=== PATIENT | female | born 1930 | race Caucasian/White ===

== ENCOUNTER 2018-06-12 10:45 | Emergency (ER) | payer MEDICARE, BC ==
--- OUTSIDE RECORDS SUMMARY | 2018-06-12 11:04 | XMS REPORT | Continuity of Care Document ---
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 Type Date Identification Numbers Payment Provider Subscriber Policy Number: [id number] Medicare Eleanor Flowers PayID: [id number] [address] [place] [address] Policy Number: [id number] [employer] Eleanor Flowers PayID: [id number] [address] [address] [place] [address] Advance Directives Description No Information Available Problems Date Description Provider Status Onset: 04/29/2014 Essential hypertension Go Barrios MD Active Onset: 04/29/2014 Chronic obstructive lung disease Go Barrios MD Active Onset: 07/16/2016 Atrial fibrillation Go Barrios MD Active Family History Date Family Member(s) Problem(s) Comments Father Unknown Mother Hyperlipidemia Mother Hypertension Social History Type Date Description Comments Sex Unknown Marital Status Legal Status: Occupation Retired Tobacco Use Start: Unknown End: Unknown Patient is a former smoker QUIT 2011 Smoking Status Reviewed: 08/01/17 Patient is a former smoker QUIT 2011 Allergies, Adverse Reactions, Alerts Date Description Reaction Status Severity Comments 11/19/2016 Augmentin Active 04/10/2017 Naproxen Active 04/10/2017 Digitek Active 08/05/2017 Amoxicillin Active Medications Medication Date Status Form Strength Qnty SIG Indications Ordering Provider Famciclovir 10/16 Active Tablets 500mg 30tab 1 by mouth s three times a MD Denis day Lactulose 10/16 Active Solution 20GM/30ML 1500m 30 l milliliters MD Denis by mouth three times a day as needed constipation Shingrix 10/09 Active Suspension 50mcg 2dose 1 dose Rec s intramuscular Ring, then repeat in 4 month Spiriva 10/09 Active Aerosol 1.25mcg/A 3mont [address] hs every day Ring, Eliquis 08/01 Active Tablets 5mg 60tab twice a day s Ring, Proair HFA 04/10 Active Aerosol 108(90Bas 8.500 2 puffs 4 x e) gm daily Ring, mcg/Act Furosemide 04/10 Active Tablets 40mg 30tab 1 tablet with El s weight gain Ring, of 2-3 lbs Amlodipine 03/10 Active Tablets 10mg 30tab 1 by mouth Elyn Besylate /2016 s every day Ring, Famotidine 03/10 Active Tablets 20mg 30tab 1 by mouth Elyn s every day Ring, Polyethylene 05/30 Active Packet [id number] 90uni 1 packet Elyn Glycol 3350 /2015 ts every day Ring, Triamcinolone Active Cream 0.1% apply as Elyn Acetonide /0000 needed Ring, Ondansetron 08/26 Hx Tablets 4mg 30tab 1 by mouth yn HCL s every 4 hours Ring, - as needed 10/09 nausea when taking zithromax Prednisone 08/05 Hx Tablets 20mg 8tabs 2 by mouth J44.0 Kameron F. /2017 every day MD Fausto - 08/26 Nystatin 08/01 Hx Suspension 098954Nkg 240ml 1 teaspoon t/ML four times a Ring, - day swish and 01/28 Spit Amoxicillin 08/01 Hx Capsules 500mg 30cap 1 by mouth s three times a Ring, - day x 10 days 08/05 Amoxicillin/Cl 11/14 Hx Tablets 500-125mg 14tab 1 by mouth J01.90 Adore avulanate s twice a day Giancarlo Lambert M.D. 11/19 Carafate 12/18 Hx Tablets 1gm 120ta 1 tab by bs mouth before Ring, - meals and at 05/30 bedtime dissolve in 1 tablespoon water Boniva 03/02 Hx Tablets 150mg 3tabs Tab 1 Q Month Drink Large Ring, - Luis Daniel Of 12/18 Water Med DO Not Lie Down For AT Least 1/2 Hour After Taking Med Magnesium 04/29 Hx Capsules 400mg 90cap 1 by mouth Elyn Oxide /2013 s every day Ring, - 12/18 Vitamin D 04/29 Hx Tablets 1000Unit 90tab 1 by mouth Elyn /2014 s every day Ring, - 12/18 Amlodipine Hx Capsules 10-40mg 90cap 1 by mouth Elyn Besylate/Benaz /0000 s every day Ring, epril HCL - 03/10 Metoprolol Hx Tablets ER 100mg 90tab 1 by mouth Elyn Succinate ER /0000 24HR s every day Ring, - 05/30 Spiriva Hx Capsules 18mcg 14cap one puff Elyn Handihaler /0000 s every day Ring, - 10/09 Symbicort Hx Aerosol 80-4.5mcg 3unit 1 puff twice Elyn /0000 /Act s a day Ring, - 07/16 Proair HFA Hx Aerosol 108(90Bas 8.500 2 puffs 4 x Elyn /0000 e) gm daily Ring, - mcg/Act 11/04 Lasix Hx Tablets 40mg tab 1 by Davidenko /0000 mouth every ,Ulises - day 05/30 Eliquis Hx Tablets 2.5mg 180ta 1 by mouth Elyn /0000 bs twice a day Ring, - 08/01 Klor-Con M20 00 Hx Tablets ER 20Meq 1 every day Davidenko /0000 as needed ,Ulises - when taking 03/10 the Amiodarone HCL Hx Tablets 200mg once daily Unknown / - 07/16 Lasix Hx Tablets 40mg 1 tab po bid Unknown / - 03/10 Digox Hx Tablets 125mcg Unknown / - 08/26 Magnesium 00 Hx Capsules 400mg daily Unknown Oxide -MG /0000 Supplement - 03/10 Potassium 00/00 Hx Tablets ER 10Meq 1 by mouth Unknown Chloride ER /0000 every day - 03/10 Immunizations CPT Code Status Date Vaccine Reaction Lot # [id number] Given 05/20/2018 Influenza Virus (Afluria) [id number] Split Virus 3 Years Of Age And Older 31841 Given 05/20/2018 Influenza Virus Vaccine, Quadrivalent, Split, Preservative Free Q2035 Given 04/10/2017 Influenza Virus (Afluria) [id number] Split Virus 3 Years Of Age And Older 01866 Given 04/10/2017 Pneumovax Polyvalent Inj Im [id number] 99434 Given 04/10/2017 Pneumovax Polyvalent Inj Im Q2035 Given 05/24/2015 Influenza Virus (Afluria) Split Virus 3 Years Of Age And Older 92180 Given 03/02/2015 Pneumococcal Conjugate [id number] Vaccine 13 Valent For Intramuscular Use 24424 Given 12/23/2007 Tetanus,Diphtheria,Adut/Ado DONE THROUGH PREVIOUS l Pertussis PROVIFER 97656 Given 05/15/2007 Influenza Vaccine [id number] Vital Signs Date Vital Result Comment 05/20/2018 3:07pm BP Systolic 138 mmHg BP Diastolic 72 mmHg Height 57.5 inches 4'9.50" Weight 159.00 lb BMI (Body Mass Index) 33.8 kg/m2 05/19/2018 8:19am BP Systolic 130 mmHg BP Diastolic 68 mmHg Heart Rate 72 /min Height 57.50 inches 4'9.50" Weight 159.00 lb BMI (Body Mass Index) 33.8 kg/m2 O2 % BldC Oximetry 92 % 01/28/2018 10:17am BP Systolic 126 mmHg BP Diastolic 64 mmHg Height 57.50 inches 4'9.50" Weight 157.00 lb BMI (Body Mass Index) 33.4 kg/m2 10/09/2017 10:27am BP Systolic 118 mmHg BP Diastolic 60 mmHg Height 57.50 inches 4'9.50" Weight 162.00 lb BMI (Body Mass Index) 34.4 kg/m2 08/26/2017 9:41am BP Systolic 120 mmHg BP Diastolic 64 mmHg Heart Rate 84 /min Respiratory Rate 20 /min Weight 162.00 lb O2 % BldC Oximetry 96 % 08/05/2017 12:20pm BP Systolic 126 mmHg BP Diastolic 70 mmHg 08/01/2017 12:00pm BP Systolic 138 mmHg BP Diastolic 78 mmHg Height 57 inches 4'9" Weight 160.00 lb BMI (Body Mass Index) 34.6 kg/m2 04/10/2017 12:54pm BP Systolic 122 mmHg BP Diastolic 70 mmHg Height 57.25 inches 4'9.25" Weight 166.00 lb BMI (Body Mass Index) 35.6 kg/m2 03/10/2017 12:52pm BP Systolic 120 mmHg BP Diastolic 70 mmHg Height 57 inches 4'9" Weight 169.00 lb BMI (Body Mass Index) 36.6 kg/m2 11/19/2016 2:16pm BP Systolic 106 mmHg BP Diastolic 70 mmHg BP Systolic Recheck 120 mmHg BP Diastolic Recheck 70 mmHg 11/14/2016 1:46pm BP Systolic 138 mmHg BP Diastolic 78 mmHg Body Temperature 98.0 F 11/04/2016 3:24pm BP Systolic 132 mmHg BP Diastolic 70 mmHg Height 58 inches 4'10" Weight 175.00 lb BMI (Body Mass Index) 36.6 kg/m2 08/26/2016 10:47am BP Systolic 130 mmHg BP Diastolic 62 mmHg Heart Rate 68 /min Height 58 inches 4'10" Weight 173.00 lb BMI (Body Mass Index) 36.2 kg/m2 07/16/2016 2:25pm BP Systolic 132 mmHg BP Diastolic 76 mmHg Height 58 inches 4'10" Weight 177.00 lb BMI (Body Mass Index) 37.0 kg/m2 05/30/2016 1:11pm BP Systolic 114 mmHg BP Diastolic 68 mmHg Height 58 inches 4'10" Weight 176.00 lb BMI (Body Mass Index) 36.8 kg/m2 03/28/2016 9:47am BP Systolic 120 mmHg BP Diastolic 80 mmHg Height 58 inches 4'10" Weight 172.00 lb BMI (Body Mass Index) 35.9 kg/m2 O2 % BldC Oximetry 94 % 95% ambulating 12/19/2015 2:29pm BP Systolic 138 mmHg BP Diastolic 80 mmHg Height 58 inches 4'10" Weight 185.00 lb BMI (Body Mass Index) 38.7 kg/m2 09/13/2015 1:11pm BP Systolic 126 mmHg BP Diastolic 74 mmHg Height 58 inches 4'10" Weight 184.00 lb BMI (Body Mass Index) 38.5 kg/m2 06/08/2015 2:33pm BP Systolic 142 mmHg BP Diastolic 84 mmHg Height 58 inches 4'10" Weight 180.00 lb BMI (Body Mass Index) 37.6 kg/m2 02/28/2015 9:39am BP Systolic 138 mmHg BP Diastolic 68 mmHg 12/05/2014 4:04pm BP Systolic 126 mmHg BP Diastolic 80 mmHg 11/22/2014 12:47pm BP Systolic 100 mmHg BP Diastolic 58 mmHg Height 57 inches 4'9" Weight 184.00 lb BMI (Body Mass Index) 39.8 kg/m2 08/03/2014 1:29pm BP Systolic 146 mmHg BP Diastolic 88 mmHg Height 57 inches 4'9" Weight 184.00 lb BMI (Body Mass Index) 39.8 kg/m2 04/29/2014 3:56pm BP Systolic 140 mmHg BP Diastolic 70 mmHg Height 57 inches 4'9" Weight 184.00 lb BMI (Body Mass Index) 39.8 kg/m2 Results Test Date Facility Test Result H/L Range Note Comp Metabolic Panel 05/13/2018 [facility] Sodium 136 mmol/L 135-[address] [place] [address] [phone] Potassium 4.0 mmol/L 3.5-5.3 Chloride 99 mmol/L 98-110 Carbon Dioxide 30 mmol/L 20-32 2 Calcium 9.6 mg/dL 8.6-10.4 Alkaline Phosphatase 93 U/L 33-130 Ast 16 U/L 10-35 Alt 10 U/L 6-29 Bilirubin,Total 1.4 mg/dL High 0.2-1.2 Glucose 93 mg/dL 65-99 3 Urea Nitrogen (BUN) 17 mg/dL 7-25 Creatinine 0.87 mg/dL 0.60-0.88 4 BUN/Creatinine Ratio 19.8 6-22 Protein,Total 6.3 g/dL 6.1-8.1 Albumin 4.1 g/dL 3.6-5.1 Globulin,Calculated 2.2 g/dL 1.9-3.7 A/G Ratio 1.8 1.0-2.5 Egfr Non-Afr. Macedonian 60 ML/MIN/1.73M2 > Or=60 Egfr 69 ML/MIN/1.73M2 > Or=60 CBC W/ Diff & PLT 05/13/2018 [facility] WBC 9.0 thous/L 3.8-10.[address] [place] [address] [phone] RBC 4.58 mill/L 3.80-5.10 Hemoglobin 14.1 g/dL 11.7-15.5 Hematocrit 41.7 % 35.0-45.0 MCV 91.2 FL 80.0-100.0 MCH 30.8 pg 27.0-33.0 MCHC 33.8 g/dL 32.0-36.0 RDW 15.2 % High 11.0-15.0 Platelet Count 218 thous/L 140-400 MPV 9.0 FL 7.5-12.5 Neutrophils,Absolute 5570 cells/L 1498-9136 Bands,Absolute PENDING Metamyelocytes,Absolute PENDING Myelocytes,Absolute PENDING Promyelocytes,Absolute PENDING Lymphocytes,Absolute 2170 cells/L 850-3900 Monocytes,Absolute 990 cells/L High 200-950 Eosinophils,Absolute 220 cells/L 15-500 Basophils,Absolute 40 cells/L 0-200 Blast Cells,Absolute PENDING Nucleated RBC,Absolute PENDING Total Neutrophils,% 62 % 40-75 Bands,% PENDING Metamyelocytes,% PENDING Myelocytes,% PENDING Promyelocytes,% PENDING Total Lymphocytes,% 24 % 12-47 Reactive Lymphocytes PENDING Monocytes,% 11 % 4-12 Eosinophils,% 2 % 0-4 Basophils,% 0 % 0-1 5 Blasts,% PENDING Nucleated RBC PENDING Comment PENDING Lipid Panel 2 05/13/2018 [facility] Cholesterol 184 mg/dL <199 [address] [place] [address] [phone] HDL Cholesterol 100 mg/dL >50 Cholesterol/HDL Ratio 1.8 CALC <5.0 LDL Chol,Calculated 70 mg/dL 0-100 6 Triglycerides 61 mg/dL <150 7 Comp Metabolic Panel 01/14/2018 [facility] Sodium 137 mmol/L 135-146 [address] [place] [address] [phone] Potassium 3.8 mmol/L 3.5-5.3 Chloride 100 mmol/L 98-110 Carbon Dioxide 30 mmol/L 20-31 Calcium 9.6 mg/dL 8.6-10.4 Alkaline Phosphatase 76 U/L 33-130 Ast 15 U/L 10-35 Alt 9 U/L 6-29 Bilirubin,Total 1.2 mg/dL 0.2-1.2 Glucose 90 mg/dL 65-99 8 Urea Nitrogen (BUN) 23 mg/dL 7-25 Creatinine 0.89 mg/dL High 0.60-0.88 9 BUN/Creatinine Ratio 25.3 High 6-22 Protein,Total 6.7 g/dL 6.1-8.1 Albumin 4.4 g/dL 3.6-5.1 Globulin,Calculated 2.3 g/dL 1.9-3.7 A/G Ratio 1.9 1.0-2.5 Egfr Non-Afr. Macedonian 59 ML/MIN/1.73M2 Low > Or=60 Egfr 68 ML/MIN/1.73M2 > Or=60 CBC W/ Diff & PLT 01/14/2018 [facility] WBC 7.1 thous/L 3.8-10.8 [address] [place] [address] [phone] RBC 4.75 mill/L 3.80-5.10 Hemoglobin 14.5 g/dL 11.7-15.5 Hematocrit 42.9 % 35.0-45.0 MCV 90.3 FL 80.0-100.0 MCH 30.6 pg 27.0-33.0 MCHC 33.8 g/dL 32.0-36.0 RDW 15.4 % High 11.0-15.0 Platelet Count 247 thous/L 140-400 Platelet Sufficiency PENDING MPV 9.3 FL 7.5-12.5 Neutrophils,Absolute 3960 cells/L 1002-9620 Bands,Absolute PENDING Metamyelocytes,Absolute PENDING Myelocytes,Absolute PENDING Promyelocytes,Absolute PENDING Lymphocytes,Absolute 2180 cells/L 850-3900 Monocytes,Absolute 720 cells/L 200-950 Eosinophils,Absolute 180 cells/L 15-500 Basophils,Absolute 70 cells/L 0-200 Blast Cells,Absolute PENDING Nucleated RBC,Absolute PENDING Total Neutrophils,% 56 % 40-75 Bands,% PENDING Metamyelocytes,% PENDING Myelocytes,% PENDING Promyelocytes,% PENDING Total Lymphocytes,% 31 % 12-47 Monocytes,% 10 % 4-12 Eosinophils,% 2 % 0-4 Basophils,% 1 % 0-1 10 Blasts,% PENDING Nucleated RBC PENDING RBC Morphology PENDING Anisocytosis PENDING Poikilocytosis PENDING Microcytosis PENDING Macrocytosis PENDING Polychromasia PENDING Hypochromasia PENDING Target Cells PENDING Basophilic Stippling PENDING Comment PENDING Lipid Panel 01/14/2018 [facility] Cholesterol 196 mg/dL <[address] [place], [place] [id number] [phone] HDL Cholesterol 98 mg/dL >50 Cholesterol/HDL Ratio 2.0 CALC <5.0 LDL Chol,Calculated 83 mg/dL 0-100 11 Triglycerides 66 mg/dL <150 Non-HDL Cholesterol 98 mg/dL <130 12 CBC W/ Diff & PLT 10/02/2017 [facility] WBC 7.8 thous/L 3.8-10.[address] [place] [address] [phone] RBC 4.69 mill/L 3.80-5.10 Hemoglobin 13.9 g/dL 11.7-15.5 Hematocrit 41.1 % 35.0-45.0 MCV 87.7 FL 80.0-100.0 MCH 29.6 pg 27.0-33.0 MCHC 33.8 g/dL 32.0-36.0 RDW 15.7 % High 11.0-15.0 Platelet Count 215 thous/L 140-400 Platelet Sufficiency PENDING MPV 9.9 FL 7.5-12.5 Neutrophils,Absolute 3660 cells/L 5687-1996 Bands,Absolute PENDING Metamyelocytes,Absolute PENDING Myelocytes,Absolute PENDING Promyelocytes,Absolute PENDING Lymphocytes,Absolute 2970 cells/L 850-3900 Monocytes,Absolute 890 cells/L 200-950 Eosinophils,Absolute 200 cells/L 15-500 Basophils,Absolute 60 cells/L 0-200 Blast Cells,Absolute PENDING Nucleated RBC,Absolute PENDING Total Neutrophils,% 47 % 40-75 Bands,% PENDING Metamyelocytes,% PENDING Myelocytes,% PENDING Promyelocytes,% PENDING Total Lymphocytes,% 38 % 12-47 Monocytes,% 11 % 4-12 Eosinophils,% 3 % 0-4 Basophils,% 1 % 0-1 13 Blasts,% PENDING Nucleated RBC PENDING RBC Morphology PENDING Anisocytosis PENDING Poikilocytosis PENDING Microcytosis PENDING Macrocytosis PENDING Polychromasia PENDING Hypochromasia PENDING Target Cells PENDING Basophilic Stippling PENDING Comment PENDING Basic Metabolic Panel 10/02/2017 [facility] Sodium 138 mmol/L 135-[address] [place] [address] [phone] Potassium 4.3 mmol/L 3.5-5.3 Chloride 103 mmol/L 98-110 Carbon Dioxide 27 mmol/L 20-31 Calcium 9.5 mg/dL 8.6-10.4 Glucose 84 mg/dL 65-99 14 Urea Nitrogen (BUN) 18 mg/dL 7-25 Creatinine 0.92 mg/dL High 0.60-0.88 15 BUN/Creatinine Ratio 19.9 6-22 Egfr Non-Afr. Macedonian 56 ML/MIN/1.73M2 Low > Or=60 Egfr 65 ML/MIN/1.73M2 > Or=60 Laboratory test 10/02/2017 [facility] Hemoglobin A1c 5.2 % 0-5.6 [address] [place] [address] [phone] Lipid Panel 10/02/2017 [facility] Cholesterol 185 mg/dL <[address] [place] [address] [phone] HDL Cholesterol 83 mg/dL >50 Cholesterol/HDL Ratio 2.2 CALC <5.0 LDL Chol,Calculated 88 mg/dL 0-100 17 Triglycerides 62 mg/dL <150 Non-HDL Cholesterol 102 mg/dL <130 18 Hepatic Function 10/02/2017 [facility] Alkaline Phosphatase 71 U/L 33- [address] [place] [address] [phone] Ast 17 U/L 10-35 Alt 12 U/L 6-29 Bilirubin,Total 1.2 mg/dL 0.2-1.2 Bilirubin,Direct 0.2 mg/dL < Or=0.2 Protein,Total 6.5 g/dL 6.1-8.1 Albumin 4.2 g/dL 3.6-5.1 Globulin,Calculated 2.3 g/dL 1.9-3.7 A/G Ratio 1.8 1.0-2.5 Laboratory test 10/02/2017 [facility] Creatine 74 U/L 29-[address] [place]ase,[place] [address] [phone] Urinalysis With 08/01/2017 [facility] Urine Color YELLOW Yellow [address] [place] [address] [phone] Urine Clarity CLEAR Clear Urine Glucose - Dipstick NEGATIVE mg/dL Negative Urine Bilirubin - Dipstick NEGATIVE Negative Urine Ketone NEGATIVE mg/dL Negative Urine Specific [place] 1.015 1.010-1.030 Urine Blood NEGATIVE Negative Urine PH 5.5 Low 6.5-7.5 Urine Protein - Dipstick NEGATIVE mg/dL Negative Urine Urobilinogen - Dipstick 0.2 E.U./dL 0.2-1.0 Urine Nitrite - Dipstick NEGATIVE Negative Urine Leuk Esterase SMALL Negative Urine RBC 0-2 rbc/hpf 0-2 Urine WBC 5-10 wbc/hpf 0-7 Urine Epithelial Cells MODERATE /lpf None Seen 20 Urine Bacteria FEW None Seen Source: URINE, CLEAN CAT <SEE NOTE> 21 Urine Culture 08/01/2017 [facility] Urine Culture MIXED URETHRAL F [address] <SEE NOTE> [place] [address] [phone] Quantity < 10,000 CFU/mL CBC W/ Diff & PLT 07/08/2017 [facility] WBC 7.6 thous/L 3.8-10.[address] [place] [address] [phone] RBC 4.67 mill/L 3.80-5.10 Hemoglobin 13.8 g/dL 11.7-15.5 Hematocrit 41.5 % 35.0-45.0 MCV 88.9 FL 80.0-100.0 MCH 29.5 pg 27.0-33.0 MCHC 33.2 g/dL 32.0-36.0 RDW 14.9 % 11.0-15.0 Platelet Count 214 thous/L 140-400 Platelet Sufficiency PENDING MPV 9.4 FL 7.5-12.5 Neutrophils,Absolute 4430 cells/L 7963-4162 Bands,Absolute PENDING Metamyelocytes,Absolute PENDING Myelocytes,Absolute PENDING Promyelocytes,Absolute PENDING Lymphocytes,Absolute 1980 cells/L 850-3900 Monocytes,Absolute 920 cells/L 200-950 Eosinophils,Absolute 270 cells/L 15-500 Basophils,Absolute 40 cells/L 0-200 Blast Cells,Absolute PENDING Nucleated RBC,Absolute PENDING Total Neutrophils,% 58 % 40-75 Bands,% PENDING Metamyelocytes,% PENDING Myelocytes,% PENDING Promyelocytes,% PENDING Total Lymphocytes,% 26 % 12-47 Monocytes,% 12 % 4-12 Eosinophils,% 4 % 0-4 Basophils,% 1 % 0-1 24 Blasts,% PENDING Nucleated RBC PENDING RBC Morphology PENDING Anisocytosis PENDING Poikilocytosis PENDING Microcytosis PENDING Macrocytosis PENDING Polychromasia PENDING Hypochromasia PENDING Target Cells PENDING Basophilic Stippling PENDING Comment PENDING Comp Metabolic Panel 07/08/2017 [facility] Sodium 138 mmol/L 135-146 [address] [facility] [place] [address] [phone] Potassium 4.0 mmol/L 3.5-5.3 Chloride 103 mmol/L 98-110 Carbon Dioxide 28 mmol/L 20-31 Calcium 9.6 mg/dL 8.6-10.4 Alkaline Phosphatase 76 U/L 33-130 Ast 15 U/L 10-35 Alt 9 U/L 6-29 Bilirubin,Total 0.8 mg/dL 0.2-1.2 Glucose 86 mg/dL 65-99 25 Urea Nitrogen (BUN) 17 mg/dL 7-25 Creatinine 0.98 mg/dL High 0.60-0.88 26 BUN/Creatinine Ratio 17.0 6-22 Protein,Total 6.5 g/dL 6.1-8.1 Albumin 4.2 g/dL 3.6-5.1 Globulin,Calculated 2.3 g/dL 1.9-3.7 A/G Ratio 1.8 1.0-2.5 Egfr Non-Afr. Macedonian 52 ML/MIN/1.73M2 Low > Or=60 Egfr 61 ML/MIN/1.73M2 > Or=60 Lipid Panel 07/08/2017 [facility] Cholesterol 187 mg/dL <199 [address] [facility] [place] [address] [phone] HDL Cholesterol 87 mg/dL >50 Cholesterol/HDL Ratio 2.1 CALC <5.0 LDL Chol,Calculated 83 mg/dL 0-100 27 Triglycerides 84 mg/dL <150 Non-HDL Cholesterol 101 mg/dL <130 28 Hepatic Function 07/08/2017 [facility] Alkaline Phosphatase 76 U/L 33- [address] [place] [address] [phone] Ast 15 U/L 10-35 Alt 9 U/L 6-29 Bilirubin,Total 0.8 mg/dL 0.2-1.2 Bilirubin,Direct 0.2 mg/dL < Or=0.2 Protein,Total 6.5 g/dL 6.1-8.1 Albumin 4.2 g/dL 3.6-5.1 Globulin,Calculated 2.3 g/dL 1.9-3.7 A/G Ratio 1.8 1.0-2.5 Laboratory test 07/08/2017 [facility] Creatine 94 U/L 29-[address] [place] [address] [phone] TSH & T4,Free 07/08/2017 [facility] TSH 2.91 0.40-4.[address] mIU/[place] [address] [phone] T4,Free 1.4 ng/dL 0.8-1.8 Basic Metabolic Panel 04/01/2017 [facility] Sodium 140 mmol/L 135-[address] [place] [address] [phone] Potassium 4.3 mmol/L 3.5-5.3 Chloride 107 mmol/L 98-110 Carbon Dioxide 23 mmol/L 20-31 Calcium 9.4 mg/dL 8.6-10.4 Glucose 86 mg/dL 65-99 30 Urea Nitrogen 23 mg/dL 7-25 Creatinine 1.22 mg/dL High 0.60-0.88 31 BUN/Creatinine Ratio 18.6 6-22 Egfr Non-Afr. Macedonian 40 ML/MIN/1.73M2 Low > Or=60 Egfr 47 ML/MIN/1.73M2 Low > Or=60 General Health Panel 02/20/2017 [facility] TSH 2.60 mIU/L 0.40-4.[address] [place] [address] [phone] T4,Free 1.4 ng/dL 0.8-1.8 Comp Metabolic Panel 02/20/2017 [facility] Sodium 136 mmol/L 135-[address] [place] [address] [phone] Potassium 4.2 mmol/L 3.5-5.3 Chloride 100 mmol/L 98-110 Carbon Dioxide 27 mmol/L 20-31 Calcium 9.3 mg/dL 8.6-10.4 Alkaline Phosphatase 96 U/L 33-130 Ast 12 U/L 10-35 Alt 6 U/L 6-29 Bilirubin,Total 1.1 mg/dL 0.2-1.2 Glucose 94 mg/dL 65-99 33 Urea Nitrogen 33 mg/dL High 7-25 Creatinine 1.89 mg/dL High 0.60-0.88 34 BUN/Creatinine Ratio 17.4 6-22 Protein,Total 6.4 g/dL 6.1-8.1 Albumin 3.9 g/dL 3.6-5.1 Globulin,Calculated 2.5 g/dL 1.9-3.7 A/G Ratio 1.5 1.0-2.5 Egfr Non-Afr. Macedonian 24 ML/MIN/1.73M2 Low > Or=60 Egfr 28 ML/MIN/1.73M2 Low > Or=60 Laboratory test 02/20/2017 [facility] Creatine 59 U/L 29-[address] [place] [address] [phone] Hemoglobin A1c 5.6 % 0-5.6 35 CBC W/ Diff & PLT 02/20/2017 [facility] WBC 10.5 thous/L 3.8-10.[address] [place] [address] [phone] RBC 4.32 mill/L 3.80-5.10 Hemoglobin 12.9 g/dL 11.7-15.5 Hematocrit 38.9 % 35.0-45.0 MCV 90.0 FL 80.0-100.0 MCH 29.9 pg 27.0-33.0 MCHC 33.3 g/dL 32.0-36.0 RDW 14.7 % 11.0-15.0 Platelet Count 246 thous/L 140-400 Platelet Sufficiency PENDING MPV 9.4 FL 7.5-12.5 Neutrophils,Absolute 7220 cells/L 0228-9267 Bands,Absolute PENDING Metamyelocytes,Absolute PENDING Myelocytes,Absolute PENDING Promyelocytes,Absolute PENDING Lymphocytes,Absolute 1360 cells/L 850-3900 Monocytes,Absolute 1530 cells/L High 200-950 Eosinophils,Absolute 350 cells/L 15-500 Basophils,Absolute 20 cells/L 0-200 Blast Cells,Absolute PENDING Nucleated RBC,Absolute PENDING Total Neutrophils,% 69 % 40-75 Bands,% PENDING Metamyelocytes,% PENDING Myelocytes,% PENDING Promyelocytes,% PENDING Total Lymphocytes,% 13 % 12-47 Monocytes,% 15 % High 4-12 Eosinophils,% 3 % 0-4 Basophils,% 0 % 0-1 36 Blasts,% PENDING Nucleated RBC PENDING RBC Morphology PENDING Anisocytosis PENDING Poikilocytosis PENDING Microcytosis PENDING Macrocytosis PENDING Polychromasia PENDING Hypochromasia PENDING Target Cells PENDING Basophilic Stippling PENDING Comment PENDING Hepatic Function 02/20/2017 [facility] Alkaline Phosphatase 96 U/L 33- [address] [place] [address] [phone] Ast 12 U/L 10-35 Alt 6 U/L 6-29 Bilirubin,Total 1.1 mg/dL 0.2-1.2 Bilirubin,Direct 0.2 mg/dL < Or=0.2 Protein,Total 6.4 g/dL 6.1-8.1 Albumin 3.9 g/dL 3.6-5.1 Globulin,Calculated 2.5 g/dL 1.9-3.7 A/G Ratio 1.5 1.0-2.5 Laboratory test 02/20/2017 [facility] Cholesterol 167 mg/dL 125-[address] [place] [address] [phone] Urinalysis With 11/15/2016 [facility] Urine Color YELLOW Yellow [address] [place] [address] [phone] Urine Clarity CLEAR Clear Urine Glucose - Dipstick NEGATIVE mg/dL Negative Urine Bilirubin - Dipstick NEGATIVE Negative Urine Ketone NEGATIVE mg/dL Negative Urine Specific [place] 1.010 1.010-1.030 Urine Blood NEGATIVE Negative Urine PH 6.0 Low 6.5-7.5 Urine Protein - Dipstick NEGATIVE mg/dL Negative Urine Urobilinogen - Dipstick 0.2 E.U./dL 0.2-1.0 Urine Nitrite - Dipstick NEGATIVE Negative Urine Leuk Esterase SMALL Negative Urine RBC 0-2 rbc/hpf 0-2 Urine WBC 2-5 wbc/hpf 0-7 Urine Epithelial Cells MODERATE /lpf None Seen 38 Urine Bacteria FEW None Seen Urine Hyaline Cast 0-2 #/lpf None Seen Urine Amorph Sediment VERY FEW Negative Source: URINE, CLEAN CAT <SEE NOTE> 39 Laboratory test 11/15/2016 [facility] Occult NEGATIVE Negative [address] Blood,[place] [address] [phone] Smear For WBC'S 11/15/2016 [facility] Smear For WBC'S VERY FEW [address] [place] [address] [phone] Smear Source: STOOL Specimen Source: STOOL Stool Culture 11/15/2016 [facility] Stool Culture NO ENTERIC PATHO [address] <SEE NOTE> [place] [address] [phone] . ................ <SEE NOTE> 42 Note: INCLUDES TESTING <SEE NOTE> 43 . PLESIOMONAS, CAM <SEE NOTE> 44 . ................ <SEE NOTE> 45 . YERSINIA AND VIB <SEE NOTE> 46 . SHOULD BE REQUES <SEE NOTE> 47 Shiga Toxin 1 Antigen Test not perform <SEE NOTE> 48 Shiga Toxin 2 Antigen Test not perform <SEE NOTE> 49 C. Difficile 11/15/2016 [facility] C. Difficile NEGATIVE FOR 50 Toxin A/B [address] Toxin A/B C. <SEE NOTE> [place] [address] [phone] Differential-WBC 11/14/2016 [facility] Total Cells 100 #CELLS Confirm [address] [place] [address] [phone] Band% 6 % 0-8 Neutrophils% 80 % High 33-73 Lymph% 8 % Low 20-42 Monocyte% 4 % 0-10 Basophil% 2 % 0-2 Platelet Estimate NORMAL Anisocytosis 1+ Differential Comment LRG PLTS SEEN Comprehensive 11/14/2016 [facility] Glucose 119 mg/ dL High 74-106 Metabolic Panel [address] [place] [address] [phone] BUN 29 mg/dL High 7-18 Creatinine 1.3 mg/dL 0.6-1.3 Glom Filtration Rate, Estimate 41 mL/min >60 If 50 mL/min >60 51 BUN/Creat 22.3 ratio Sodium 136 mmol/L 136-145 Potassium 3.8 mmol/L 3.5-5.1 Chloride 101 mmol/L 98-107 Carbon Dioxide 24 mmol/L 21-32 Anion Gap 11 mEq/L 8-16 Calcium 9.1 mg/dL 8.5-10.1 Total Protein 7.5 g/dL 6.4-8.2 Albumin 3.7 g/dL 3.4-5.0 Globulin 3.8 g/dL 1.9-4.3 Alb/Glob 1.0 ratio Bilirubin,Total 1.1 mg/dL High 0.2-1.0 Sgot/Ast 20 U/L 15-37 SGPT/Alt 23 U/L 12-78 Alkaline Phosphatase 95 U/L 45-117 Laboratory test 11/14/2016 [facility] Lipase 238 U/L 73-[address] [place] [address] [phone] Slide Review 11/14/2016 [facility] Slide DIFF ORDERED [address] [place] [address] [phone] CBS W/Automated 11/14/2016 [facility] White Blood 18.0 K/uL High 3.1-10.[address] [place] [address] [phone] Red Blood Count 4.55 M/uL 3.90-5.40 Hemoglobin 13.6 gm/dL 11.6-15.8 Hematocrit 41.6 % 36.0-46.1 Mean Cell Volume 91.4 fl 80.9-99.0 Mean Corpuscular HGB 29.9 pg 25.9-32.7 Mean Corpuscular HGB Conc 32.7 g/dL 30.8-34.3 Platelet Count 232 K/uL 150-400 Red Cell Distri Width SD 47.6 fl High 3-47 Red Cell Distri Width %CV 14.7 % High 11.7-14.4 Mean Platelet Volume 11.5 fL 8.9-12.4 52 Neut# 14.79 K/uL High 1.8-7.0 Lymph # 0.83 K/uL Low 1.0-4.0 Hunt # 2.31 K/uL High 0.3-0.9 Eos # 0.07 K/uL 0.0-0.5 Baso # 0.04 K/uL 0.0-0.1 CBC W/ Diff & PLT 10/28/2016 [facility] WBC 8.1 thous/L 3.8-10.8 [address] [place] [address] [phone] RBC 4.51 mill/L 3.80-5.10 Hemoglobin 13.2 g/dL 11.7-15.5 Hematocrit 40.4 % 35.0-45.0 MCV 89.6 FL 80.0-100.0 MCH 29.2 pg 27.0-33.0 MCHC 32.6 g/dL 32.0-36.0 RDW 14.9 % 11.0-15.0 Platelet Count 226 thous/L 140-400 Platelet Sufficiency PENDING MPV 9.5 FL 7.5-12.5 Neutrophils,Absolute 4890 cells/L 4436-5388 Bands,Absolute PENDING Metamyelocytes,Absolute PENDING Myelocytes,Absolute PENDING Promyelocytes,Absolute PENDING Lymphocytes,Absolute 2030 cells/L 850-3900 Monocytes,Absolute 850 cells/L 200-950 Eosinophils,Absolute 240 cells/L 15-500 Basophils,Absolute 50 cells/L 0-200 Blast Cells,Absolute PENDING Nucleated RBC,Absolute PENDING Total Neutrophils,% 61 % 40-75 Bands,% PENDING Metamyelocytes,% PENDING Myelocytes,% PENDING Promyelocytes,% PENDING Total Lymphocytes,% 25 % 12-47 Monocytes,% 11 % 4-12 Eosinophils,% 3 % 0-4 Basophils,% 1 % 0-1 53 Blasts,% PENDING Nucleated RBC PENDING RBC Morphology PENDING Anisocytosis PENDING Poikilocytosis PENDING Microcytosis PENDING Macrocytosis PENDING Polychromasia PENDING Hypochromasia PENDING Target Cells PENDING Basophilic Stippling PENDING Comment PENDING Basic Metabolic Panel 10/28/2016 [facility] Sodium 139 mmol/L 135-[address] [place], [place] [id number] [phone] Potassium 4.0 mmol/L 3.5-5.3 Chloride 104 mmol/L 98-110 Carbon Dioxide 28 mmol/L 20-31 Calcium 9.4 mg/dL 8.6-10.4 Glucose 83 mg/dL 65-99 54 Urea Nitrogen 27 mg/dL High 7-25 Creatinine 1.03 mg/dL High 0.60-0.88 55 BUN/Creatinine Ratio 26.2 High 6-22 Egfr Non-Afr. Macedonian 50 ML/MIN/1.73M2 Low > Or=60 Egfr 57 ML/MIN/1.73M2 Low > Or=60 Laboratory test 08/14/2016 [facility] Digoxin 1.3 ng/ mL 0.8-2.0 [address] [place], [place] [id number] [phone] Ua RFX Micro & 08/13/2016 [facility] Urine Color YELLOW Yellow 57 Culture II [address] [place] [address] [phone] Urine Clarity CLEAR Clear Urine Glucose - Dipstick NEGATIVE mg/dL Negative Urine Bilirubin - Dipstick NEGATIVE Negative Urine Ketone NEGATIVE mg/dL Negative Urine Specific [place] 1.010 1.010-1.030 Urine Blood NEGATIVE Negative Urine PH 7.0 6.5-7.5 Urine Protein - Dipstick NEGATIVE mg/dL Negative Urine Urobilinogen - Dipstick 0.2 E.U./dL 0.2-1.0 Urine Nitrite - Dipstick NEGATIVE Negative Urine Leuk Esterase NEGATIVE Negative Source: URINE, CLEAN CAT <SEE NOTE> 58 Blood Culture 08/13/2016 [facility] Blood Culture NO GROWTH: 59, [address] Aerobic [place]AL <[place] [address] NOTE> [phone] Blood Culture Anaerobic NO GROWTH: FINAL <SEE NOTE> 61 Blood Culture 08/13/2016 [facility] Blood Culture NO GROWTH: [address] Aerobic FINAL [place] [address] NOTE> [phone] Blood Culture Anaerobic NO GROWTH: FINAL <SEE NOTE> 63 Aot Request 08/13/2016 [facility] Aot Request Test(s ) added 64, [address] [place] [id number] [phone] Tests to be added: dIGOXIN LEVEL Laboratory 08/13/2016 [facility] NT-proBNP 1082.0 High <450 test finding [address] pg/[place] [address] [phone] Laboratory 07/09/2016 [facility] Hemoglobin A1c 5.7 % High 0.0-5.6 66, test finding [address] [place] [address] [phone] Lipid Panel 07/09/2016 [facility] Cholesterol 212 mg/dL High 125-[address] [place], [place] [id number] [phone] HDL Cholesterol 108 mg/dL > Or=46 Cholesterol/HDL Ratio 2.0 < Or=5.0 LDL Chol,Calculated 91 mg/dL <130 68 Triglycerides 67 mg/dL <150 Non-HDL Cholesterol 104 mg/dL 69 Basic Metabolic Panel 07/09/2016 [facility] Sodium 134 mmol/L Low 135-[address] [place] [address] [phone] Potassium 4.4 mmol/L 3.5-5.3 Chloride 99 mmol/L 98-110 Carbon Dioxide 26 mmol/L 20-31 Calcium 9.5 mg/dL 8.6-10.4 Glucose 80 mg/dL 65-99 70 Urea Nitrogen 23 mg/dL 7-25 Creatinine 1.20 mg/dL High 0.60-0.88 71 BUN/Creatinine Ratio 18.8 6-22 Egfr Non-Afr. Macedonian 41 ML/MIN/1.73M2 Low > Or=60 Egfr 48 ML/MIN/1.73M2 Low > Or=60 Hepatic Function 07/09/2016 [facility] Alkaline Phosphatase 75 U/L 33- [address] [place] [address] [phone] Ast 26 U/L 10-35 Alt 23 U/L 6-29 Bilirubin,Total 1.3 mg/dL High 0.2-1.2 Bilirubin,Direct 0.2 mg/dL < Or=0.2 Protein,Total 6.6 g/dL 6.1-8.1 Albumin 4.3 g/dL 3.6-5.1 Globulin,Calculated 2.3 g/dL 1.9-3.7 A/G Ratio 1.8 1.0-2.5 Laboratory test 07/09/2016 [facility] Creatine 101 U/L 29-[address] Kinase,[place] [address] [phone] CBC W/ Diff & 07/09/2016 [facility] WBC 6.7 3.8-10.[address] thous/ [place] [address] L [phone] RBC 4.61 mill/L 3.80-5.10 Hemoglobin 13.4 g/dL 11.7-15.5 Hematocrit 40.9 % 35.0-45.0 MCV 88.9 FL 80.0-100.0 MCH 29.1 pg 27.0-33.0 MCHC 32.8 g/dL 32.0-36.0 RDW 16.1 % High 11.0-15.0 Platelet Count 217 thous/L 140-400 Platelet Sufficiency PENDING MPV 9.6 FL 7.5-11.5 Neutrophils,Absolute 4360 cells/L 4809-8389 Bands,Absolute PENDING Metamyelocytes,Absolute PENDING Myelocytes,Absolute PENDING Promyelocytes,Absolute PENDING Lymphocytes,Absolute 1420 cells/L 850-3900 Monocytes,Absolute 810 cells/L 200-950 Eosinophils,Absolute 70 cells/L 15-500 Basophils,Absolute 30 cells/L 0-200 Blast Cells,Absolute PENDING Nucleated RBC,Absolute PENDING Total Neutrophils,% 65 % 40-75 Bands,% PENDING Metamyelocytes,% PENDING Myelocytes,% PENDING Promyelocytes,% PENDING Total Lymphocytes,% 21 % 12-47 Monocytes,% 12 % 4-12 Eosinophils,% 1 % 0-4 Basophils,% 0 % 0-1 72 Blasts,% PENDING Nucleated RBC PENDING RBC Morphology PENDING Anisocytosis PENDING Poikilocytosis PENDING Microcytosis PENDING Macrocytosis PENDING Polychromasia PENDING Hypochromasia PENDING Target Cells PENDING Basophilic Stippling PENDING Comment PENDING Laboratory test 03/17/2016 [facility] B Type 242 pg/mL High 73, [address] [place] [address] Peptide [phone] CBC Auto Diff 03/17/2016 [facility] White Blood 8.6 3.5- [address] Count 10^3/uL 10.8 [place], [place] [id number] [phone] Red Blood Count 4.49 10^6/uL 4.0-5.4 Hemoglobin 13.2 g/dL 12.0-16.0 Hematocrit 40 % 35-47 Mean Corpuscular Volume 89 fL 80-97 Mean Corpuscular Hemoglobin 29 pg 27-31 Mean Corpuscular HGB Conc 33 g/dL 31-36 Red Cell Distribution Width 15 % 10.5-15 Platelet Count 200 10^3/uL 150-450 Mean Platelet Volume 10 um3 7.4-10.4 Abs Neutrophils 5.8 10^3/uL 1.5-7.7 Abs Lymphocytes 1.4 10^3/uL 1.0-4.8 Abs Monocytes 1.1 10^3/uL High 0-0.8 Abs Eosinophils 0.2 10^3/uL 0-0.6 Abs Basophils 0.1 10^3/uL 0-0.2 Abs Nucleated RBC 0.02 10^3/uL Granulocyte % 67.2 % 38-83 Lymphocyte % 16.2 % Low 25-47 Monocyte % 12.8 % High 1-9 Eosinophil % 2.5 % 0-6 Basophil % 1.3 % 0-2 Nucleated Red Blood Cells % 0.2 Comp Metabolic Panel 03/17/2016 [facility] Sodium 139 mmol/L 483-[address] [place] [address] [phone] Potassium 4.5 mmol/L 3.5-5.0 Chloride 105 mmol/L 101-111 Co2 Carbon Dioxide 27 mmol/L 22-32 Anion Gap 7 mmol/L 2-11 Glucose 116 mg/dL High 70-100 Blood Urea Nitrogen 22 mg/dL 6-24 Creatinine 0.85 mg/dL 0.51-0.95 BUN/Creatinine Ratio 25.9 High 8-20 Calcium 9.5 mg/dL 8.6-10.3 Total Protein 6.3 g/dL Low 6.4-8.9 Albumin 4.1 g/dL 3.2-5.2 Globulin 2.2 g/dL 2-4 Albumin/Globulin Ratio 1.9 1-3 Total Bilirubin 1.30 mg/dL High 0.2-1.0 Alkaline Phosphatase 67 U/L 34-104 Alt 19 U/L 7-52 Ast 21 U/L 13-39 Egfr Non- 63.7 >60 Egfr 81.9 >60 75 Hepatic Function 03/12/2016 [facility] Alkaline 70 U/L 33-[address] [place] [address] [phone] Ast 16 U/L 10-35 Alt 13 U/L 6-29 Bilirubin,Total 1.6 mg/dL High 0.2-1.2 Bilirubin,Direct 0.3 mg/dL High < Or=0.2 Protein,Total 6.5 g/dL 6.1-8.1 Albumin 4.3 g/dL 3.6-5.1 Globulin,Calculated 2.2 g/dL 1.9-3.7 A/G Ratio 2.0 1.0-2.5 Lipid Panel 03/12/2016 [facility] Cholesterol 166 mg/dL 125-[address] [place] [address] [phone] HDL Cholesterol 68 mg/dL > Or=46 Cholesterol/HDL Ratio 2.4 < Or=5.0 LDL Chol,Calculated 78 mg/dL <130 77 Triglycerides 98 mg/dL <150 Non-HDL Cholesterol 98 mg/dL 78 General Health Panel 03/12/2016 [facility] TSH 1.99 mIU/L 0.40-4.[address] [place] [address] [phone] T4,Free 1.3 ng/dL 0.8-1.8 CMP W/O Egfr 03/12/2016 [facility] Sodium 139 mmol/L 135-[address] [place] [address] [phone] Potassium 4.2 mmol/L 3.5-5.3 Chloride 104 mmol/L 98-110 Carbon Dioxide 24 mmol/L 20-31 Calcium 9.4 mg/dL 8.6-10.4 Alkaline Phosphatase 70 U/L 33-130 Ast 16 U/L 10-35 Alt 13 U/L 6-29 Bilirubin,Total 1.6 mg/dL High 0.2-1.2 Glucose 88 mg/dL 65-99 80 Urea Nitrogen 15 mg/dL 7-25 Creatinine 0.80 mg/dL 0.60-0.88 81 BUN/Creatinine Ratio 18.6 6-22 Protein,Total 6.5 g/dL 6.1-8.1 Albumin 4.3 g/dL 3.6-5.1 Globulin,Calculated 2.2 g/dL 1.9-3.7 A/G Ratio 2.0 1.0-2.5 CBC W/ Diff & PLT 03/12/2016 [facility] WBC 8.5 thous/L 3.8-10.[address] [place], [place] [id number] [phone] RBC 4.57 mill/L 3.80-5.10 Hemoglobin 13.8 g/dL 11.7-15.5 Hematocrit 41.3 % 35.0-45.0 MCV 90.3 FL 80.0-100.0 MCH 30.3 pg 27.0-33.0 MCHC 33.5 g/dL 32.0-36.0 RDW 15.2 % High 11.0-15.0 Platelet Count 214 thous/L 140-400 Platelet Sufficiency PENDING MPV 10.3 FL 7.5-11.5 Neutrophils,Absolute 5390 cells/L 3700-0850 Bands,Absolute PENDING Metamyelocytes,Absolute PENDING Myelocytes,Absolute PENDING Promyelocytes,Absolute PENDING Lymphocytes,Absolute 1900 cells/L 850-3900 Monocytes,Absolute 850 cells/L 200-950 Eosinophils,Absolute 280 cells/L 15-500 Basophils,Absolute 50 cells/L 0-200 Blast Cells,Absolute PENDING Nucleated RBC,Absolute PENDING Total Neutrophils,% 64 % 40-75 Bands,% PENDING Metamyelocytes,% PENDING Myelocytes,% PENDING Promyelocytes,% PENDING Total Lymphocytes,% 22 % 12-47 Monocytes,% 10 % 4-12 Eosinophils,% 3 % 0-4 Basophils,% 1 % 0-1 82 Blasts,% PENDING Nucleated RBC PENDING RBC Morphology PENDING Anisocytosis PENDING Poikilocytosis PENDING Microcytosis PENDING Macrocytosis PENDING Polychromasia PENDING Hypochromasia PENDING Target Cells PENDING Basophilic Stippling PENDING Comment PENDING BMP W/O Egfr 12/12/2015 [facility] Sodium 139 mmol/L 135-[address] [place] [address] [phone] Potassium 4.3 mmol/L 3.5-5.3 Chloride 104 mmol/L 98-110 Carbon Dioxide 25 mmol/L 19-30 Calcium 9.4 mg/dL 8.6-10.4 Glucose 89 mg/dL 65-99 83 Urea Nitrogen 23 mg/dL 7-25 Creatinine 0.92 mg/dL High 0.60-0.88 84 BUN/Creatinine Ratio 25.1 High 6-22 BMP W/O Egfr 09/04/2015 [facility] Sodium 140 mmol/L 135-[address] [place] [address] [phone] Potassium 4.3 mmol/L 3.5-5.3 Chloride 104 mmol/L 98-110 Carbon Dioxide 27 mmol/L 19-30 Calcium 9.5 mg/dL 8.6-10.4 Glucose 91 mg/dL 65-99 85 Urea Nitrogen 21 mg/dL 7-25 Creatinine 0.76 mg/dL 0.60-0.88 86 BUN/Creatinine Ratio 27.6 High 6-22 BMP W/O Egfr 05/31/2015 [facility] Sodium 137 mmol/L 135-[address] [place] [address] [phone] Potassium 4.2 mmol/L 3.5-5.3 Chloride 103 mmol/L 98-110 Carbon Dioxide 25 mmol/L 19-30 Calcium 9.4 mg/dL 8.6-10.4 Glucose 89 mg/dL 65-99 87 Urea Nitrogen 19 mg/dL 7-25 Creatinine 0.70 mg/dL 0.60-0.88 88 BUN/Creatinine Ratio 27.0 High 6-22 Hepatic Function 02/23/2015 [facility] Alkaline Phosphatase 93 U/L 33- [address] [place] [address] [phone] Ast 17 U/L 10-35 Alt 12 U/L 6-29 Bilirubin,Total 1.0 mg/dL 0.2-1.2 Bilirubin,Direct 0.2 mg/dL < Or=0.2 Protein,Total 6.8 g/dL 6.1-8.1 Albumin 4.3 g/dL 3.6-5.1 Globulin,Calculated 2.5 g/dL 1.9-3.7 A/G Ratio 1.7 1.0-2.5 Laboratory 02/23/2015 [facility] Vitamin 26 Low 30-[address] D,25-Hydroxy,Total,Immunoassay NG/[place] [address] [phone] General 02/23/2015 [facility] TSH 2.50 0.40-4. [address] mIU/L 50 [place] [address] [phone] T4,Free 1.3 ng/dL 0.8-1.8 CMP W/O Egfr 02/23/2015 [facility] Sodium 136 mmol/L 135-[address] [place] [id number] [phone] Potassium 4.1 mmol/L 3.5-5.3 Chloride 103 mmol/L 98-110 Carbon Dioxide 23 mmol/L 19-30 Calcium 9.6 mg/dL 8.6-10.4 Alkaline Phosphatase 93 U/L 33-130 Ast 17 U/L 10-35 Alt 12 U/L 6-29 Bilirubin,Total 1.0 mg/dL 0.2-1.2 Glucose 91 mg/dL 65-99 91 Urea Nitrogen 16 mg/dL 7-25 Creatinine 0.80 mg/dL 0.60-0.88 92 BUN/Creatinine Ratio 20.3 6-22 Protein,Total 6.8 g/dL 6.1-8.1 Albumin 4.3 g/dL 3.6-5.1 Globulin,Calculated 2.5 g/dL 1.9-3.7 A/G Ratio 1.7 1.0-2.5 CBC W/ Diff & PLT 02/23/2015 [facility] WBC 9.4 thous/L 3.8-10.[address] [place] [address] [phone] RBC 4.82 mill/L 3.80-5.10 Hemoglobin 14.4 g/dL 11.7-15.5 Hematocrit 44.3 % 35.0-45.0 MCV 91.9 FL 80.0-100.0 MCH 29.8 pg 27.0-33.0 MCHC 32.4 g/dL 32.0-36.0 RDW 15.4 % High 11.0-15.0 Platelet Count 235 thous/L 140-400 Platelet Sufficiency PENDING MPV 10.1 FL 7.5-11.5 Neutrophils,Absolute 6330 cells/L 1087-1610 Bands,Absolute PENDING Metamyelocytes,Absolute PENDING Myelocytes,Absolute PENDING Promyelocytes,Absolute PENDING Lymphocytes,Absolute 1860 cells/L 850-3900 Monocytes,Absolute 910 cells/L 200-950 Eosinophils,Absolute 230 cells/L 15-500 Basophils,Absolute 40 cells/L 0-200 Blast Cells,Absolute PENDING Nucleated RBC,Absolute PENDING Total Neutrophils,% 68 % Not Established Bands,% PENDING Metamyelocytes,% PENDING Myelocytes,% PENDING Promyelocytes,% PENDING Total Lymphocytes,% 20 % Not Established Monocytes,% 10 % Not Established Eosinophils,% 3 % Not Established Basophils,% 0 % Not Established Blasts,% PENDING Nucleated RBC PENDING RBC Morphology PENDING Anisocytosis PENDING Poikilocytosis PENDING Microcytosis PENDING Macrocytosis PENDING Polychromasia PENDING Hypochromasia PENDING Target Cells PENDING Basophilic Stippling PENDING Comment PENDING Lipid Panel 02/23/2015 [facility] Cholesterol 202 mg/dL High 125-200 6 [place] [address] [phone] HDL Cholesterol 85 mg/dL > Or=46 Cholesterol/HDL Ratio 2.4 < Or=5.0 LDL Chol,Calculated 98 mg/dL <130 93 Triglycerides 96 mg/dL <150 Non-HDL Cholesterol 117 mg/dL 94 CBC W/ Diff & PLT 11/23/2014 [facility] WBC 7.2 thous/L 3.8-10.8 [address] [place] [address] [phone] RBC 4.57 mill/L 3.80-5.10 Hemoglobin 13.6 g/dL 11.7-15.5 Hematocrit 41.3 % 35.0-45.0 MCV 90.3 FL 80.0-100.0 MCH 29.6 pg 27.0-33.0 MCHC 32.8 g/dL 32.0-36.0 RDW 14.6 % 11.0-15.0 Platelet Count 232 thous/L 140-400 Platelet Sufficiency PENDING Neutrophils,Absolute 4370 cells/L 5325-7049 Bands,Absolute PENDING Metamyelocytes,Absolute PENDING Myelocytes,Absolute PENDING Promyelocytes,Absolute PENDING Lymphocytes,Absolute 1700 cells/L 850-3900 Monocytes,Absolute 810 cells/L 200-950 Eosinophils,Absolute 250 cells/L 15-500 Basophils,Absolute 40 cells/L 0-200 Blast Cells,Absolute PENDING Nucleated RBC,Absolute PENDING Total Neutrophils,% 61 % Not Established Bands,% PENDING Metamyelocytes,% PENDING Myelocytes,% PENDING Promyelocytes,% PENDING Total Lymphocytes,% 24 % Not Established Monocytes,% 11 % Not Established Eosinophils,% 3 % Not Established Basophils,% 1 % Not Established Blasts,% PENDING Nucleated RBC PENDING RBC Morphology PENDING Anisocytosis PENDING Poikilocytosis PENDING Microcytosis PENDING Macrocytosis PENDING Polychromasia PENDING Hypochromasia PENDING Target Cells PENDING Basophilic Stippling PENDING Comment PENDING Basic Metabolic Panel 11/15/2014 [facility] Glucose 97 mg/dL 74-[address] [place], [place] [id number] [phone] BUN 14 mg/dL 7-18 Creatinine 0.7 mg/dL 0.6-1.3 Glom Filtration Rate, Estimate >60 mL/min >60 If >60 mL/min >60 95 BUN/Creat 20.0 ratio Sodium 139 mmol/L 136-145 Potassium 3.9 mmol/L 3.5-5.1 Chloride 103 mmol/L 98-107 Carbon Dioxide 26 mmol/L 21-32 Anion Gap 10 mEq/L 8-16 Calcium 9.1 mg/dL 8.5-10.1 CBC W/ Diff & 07/22/2014 [facility] White Blood 9.2 K /uL 3.1-10.[address] Count [place], [place] [id number] [phone] Red Blood Count 4.52 M/uL 3.90-5.40 Hemoglobin 13.8 gm/dL 11.6-15.8 Hematocrit 42.3 % 36.0-46.1 Mean Cell Volume 93.6 fl 80.9-99.0 Mean Corpuscular HGB 30.5 pg 25.9-32.7 Mean Corpuscular HGB Conc 32.6 g/dL 30.8-34.3 Platelet Count 236 K/uL 155-360 Red Cell Distri Width SD 47.7 fl High 3-47 Red Cell Distri Width %CV 14.3 % 11.7-14.4 Mean Platelet Volume 11.1 fL 8.9-12.4 Neut% 61.5 % 40.4-72.8 Lymph % 22.0 % 17.0-46.1 Hunt % 12.3 % 4.3-13.2 Eo% 3.3 % 0.0-6.6 Bas% 0.9 % 0.0-1.1 Neut# 5.68 K/uL 1.0-7.0 Lymph # 2.03 K/uL 0.8-3.4 Hunt # 1.13 K/uL High 0.3-0.9 Eos # 0.30 K/uL 0.0-0.5 Baso # 0.08 K/uL 0.0-0.1 Basic Metabolic Panel 07/22/2014 [facility] Glucose 89 mg/dL 74-[address] [place] [address] [phone] BUN 17 mg/dL 7-18 Creatinine 0.9 mg/dL 0.6-1.3 Glom Filtration Rate, Estimate >60 mL/min >60 If >60 mL/min >60 96 BUN/Creat 18.8 ratio Sodium 140 mmol/L 136-145 Potassium 3.7 mmol/L 3.5-5.1 Chloride 106 mmol/L 98-107 Carbon Dioxide 30 mmol/L 21-32 Anion Gap 8 mEq/L 8-16 Calcium 8.8 mg/dL 8.5-10.1 Liver Function 07/22/2014 [facility] Total Protein 6.5 g/dL 6.4-8.[address] [place] [address] [phone] Albumin 3.7 g/dL 3.4-5.0 Globulin 2.8 g/dL 1.9-4.3 Alb/Glob 1.3 ratio Bilirubin,Total 0.6 mg/dL 0.2-1.0 Bilirubin,Direct 0.2 mg/dL 0.0-0.2 Bilirubin,Indirect 0.4 mg/dL 0.0-0.9 Sgot/Ast 19 U/L 15-37 SGPT/Alt 24 U/L 12-78 Alkaline Phosphatase 113 U/L 45-117 1 FASTING 2 Reference range for high altitude clients: 18-30 mmol/L 3 GLUCOSE REFERENCE RANGE BASED ON FASTING SPECIMEN. 4 The upper reference limit for Creatinine is approximately 13% higher for people identified as -Macedonian. 5 Relative blood cell counts (%) should be compared with absolute cell counts (cells/mcL). Relative counts may not be clinically meaningful if the absolute count of one or more cell type is decreased. Reference ranges for relative cell counts derived from: A Manual of Laboratory and Diagnostics Tests, 9th Ed, [employer], 2015. Pediatric Reference Intervals, 7th Ed, [facility] Press, 2011. 6 LDL-C is now calculated using the Raza-Park calculation, which is a validated novel method providing better accuracy than the Friedewald equation in the estimation of LDL-C. Raza SS et al.FARIBA.2013;310(19):0991-6870 Desirable range <100 mg/dL for primary prevention; <70 mg/dL for patients with CHD or diabetic patients with >or=2 CHD risk factors. For additional information, please refer to http://education.[email or web address]/faq/[email or web address](This link is being provided for informational/educational purposes only.) 7 WE RECEIVED YOUR HANDWRITTEN TEST ORDER. WE PERFORMED THE AMA DEFINED LIPID PANEL. IF THIS IS NOT WHAT YOU INTENDED TO ORDER, PLEASE CONTACT YOUR LOCAL COMMUNITY DEVELOPMENT DIRECTOR IMMEDIATELY AT SO THAT WE CAN ADJUST OUR BILLING APPROPRIATELY. YOU MAY ALSO INQUIRE ABOUT ALTERNATIVE OR ADDITIONAL TESTING. 8 GLUCOSE REFERENCE RANGE BASED ON FASTING SPECIMEN. 9 The upper reference limit for Creatinine is approximately 13% higher for people identified as -Macedonian. 10 Relative blood cell counts (%) should be compared with absolute cell counts (cells/mcL). Relative counts may not be clinically meaningful if the absolute count of one or more cell type is decreased. Reference ranges for relative cell counts derived from: A Manual of Laboratory and Diagnostics Tests, 9th Ed, [employer], 2015. Pediatric Reference Intervals, 7th Ed, [employer], 2011. 11 LDL-C is now calculated using the Raza-Nick calculation, which is a validated novel method providing better accuracy than the Friedewald equation in the estimation of LDL-C. Raza MADRID et al.FARIBA.2013;310(23):3227-6820 Desirable range <100 mg/dL for primary prevention; <70 mg/dL for patients with CHD or diabetic patients with >or=2 CHD risk factors. For additional information, please refer to http://education.[employer]EX/faq/JMK673(This link is being provided for informational/educational purposes only.) 12 For patients with diabetes plus 1 major ASCVD risk factor, treating to a non-HDL-C goal of <100 mg/dL (LDL-C of <70 mg/ dL) is considered a therapeutic option. 13 Relative blood cell counts (%) should be compared with absolute cell counts (cells/mcL). Relative counts may not be clinically meaningful if the absolute count of one or more cell type is decreased. Reference ranges for relative cell counts derived from: A Manual of Laboratory and Diagnostics Tests, 9th Ed, [employer], 2015. Pediatric Reference Intervals, 7th Ed, [employer], 2011. 14 GLUCOSE REFERENCE RANGE BASED ON FASTING SPECIMEN. 15 The upper reference limit for Creatinine is approximately 13% higher for people identified as -Macedonian. 16 For the purpose of screening for the presence of diabetes: <5.7% Consistent with the absence of diabetes 5.7-6.4% Consistent with the increased risk of diabetes (prediabetes) >or=6.5% Consistent with diabetes This assay result is conistent with a decreased risk of diabetes. Currently, no consensus exists regarding use of hemoglobin A1C for diagnosis of diabetes in children. According to [place] Diabetes Association (ADA) guidelines, hemoglobin A1C <7.0% represents optimal control in non- diabetic patients. Different metrics may apply to specific patient populations. Standards of Medical Care in Diabetes (ADA) FOR DIAGNOSTIC PURPOSES: A1C VALUE(% OF TOTAL HEMOGLOBIN) INTERPRETATION < 5.7 CONSISTENT WITH THE ABSENCE OF DIABETES 5.7 - 6.4 CONSISTENT WITH INCREASED RISK OF DIABETES > OR=6.5 CONSISTENT WITH DIABETES FOR MONITORING PURPOSES (ADA GUIDELINNES): A1C VALUE(% OF TOTAL HEMOGLOBIN) INTERPRETATION < 6.5 ACHIEVES STRINGENT GLYCEMIC GOAL < 7.0 ACHIEVES GENERAL GLYCEMIC GOAL(NON- ADULTS) < 8.0 ACHIEVES LESS STRINGENT GLYCEMIC GOAL 17 LDL-C is now calculated using the Raza-Nick calculation, which is a validated novel method providing better accuracy than the Friedewald equation in the estimation of LDL-C. Raza SS et al.FARIBA.2013;310(19):4517-2572 ([email or web address]://[email or web address]/[email or web address]) Desirable range <100 mg/dL for patients with CHD or Diabetes and <70 mg/dL for Diabetic patients with known heart disease 18 For patients with diabetes plus 1 major ASCVD risk factor, treating to a non-HDL-C goal of <100 mg/dL (LDL-C of <70 mg/ dL) is considered a therapeutic option. 19 VOMITING, DIARRHEA, HEADACHE, AFTER AMOXICILLIN 20 POSSIBLE UROGENITAL CONTAMINATION. 21 URINE, CLEAN CATCH 22 MIXED URETHRAL LEYLA 23 FASTING 24 Relative blood cell counts (%) should be compared with absolute cell counts (cells/mcL). Relative counts may not be clinically meaningful if the absolute count of one or more cell type is decreased. Reference ranges for relative cell counts derived from: A Manual of Laboratory and Diagnostics Tests, 9th Ed, [employer], 2015. Pediatric Reference Intervals, 7th Ed, [employer], 2011. 25 GLUCOSE REFERENCE RANGE BASED ON FASTING SPECIMEN. 26 The upper reference limit for Creatinine is approximately 13% higher for people identified as -Macedonian. 27 LDL-C is now calculated using the Raza-Nick calculation, which is a validated novel method providing better accuracy than the Friedewald equation in the estimation of LDL-C. Raza SS et al.FARIBA.2013;310(19):0478-7343 (http://education.[employer].[email or web address]/faq/KLH104) Desirable range <100 mg/dL for patients with CHD or Diabetes and <70 mg/dL for Diabetic patients with known heart disease 28 For patients with diabetes plus 1 major ASCVD risk factor, treating to a non-HDL-C goal of <100 mg/dL (LDL-C of <70 mg/ dL) is considered a therapeutic option. 29 REFERENCE RANGES BELOW ARE APPLICABLE TO FEMALES FIRST TRIMESTER - 0.26 - 2.66 mIU/L SECOND TRIMESTER - 0.55 - 2.73 mIU/L THIRD TRIMESTER - 0.43 - 2.91 mIU/L 30 GLUCOSE REFERENCE RANGE BASED ON FASTING SPECIMEN. 31 The upper reference limit for Creatinine is approximately 13% higher for people identified as -Macedonian. 32 REFERENCE RANGES BELOW ARE APPLICABLE TO FEMALES FIRST TRIMESTER - 0.26 - 2.66 mIU/L SECOND TRIMESTER - 0.55 - 2.73 mIU/L THIRD TRIMESTER - 0.43 - 2.91 mIU/L 33 GLUCOSE REFERENCE RANGE BASED ON FASTING SPECIMEN. 34 The upper reference limit for Creatinine is approximately 13% higher for people identified as -Macedonian. 35 For the purpose of screening for the presence of diabetes: <5.7% Consistent with the absence of diabetes 5.7-6.4% Consistent with the increased risk of diabetes (prediabetes) >or=6.5% Consistent with diabetes This assay result is conistent with a decreased risk of diabetes. Currently, no consensus exists regarding use of hemoglobin A1C for diagnosis of diabetes in children. According to [place] Diabetes Association (ADA) guidelines, hemoglobin A1C <7.0% represents optimal control in non- diabetic patients. Different metrics may apply to specific patient populations. Standards of Medical Care in Diabetes (ADA) FOR DIAGNOSTIC PURPOSES: A1C VALUE(% OF TOTAL HEMOGLOBIN) INTERPRETATION < 5.7 CONSISTENT WITH THE ABSENCE OF DIABETES 5.7 - 6.4 CONSISTENT WITH INCREASED RISK OF DIABETES > OR=6.5 CONSISTENT WITH DIABETES FOR MONITORING PURPOSES (ADA GUIDELINNES): A1C VALUE(% OF TOTAL HEMOGLOBIN) INTERPRETATION < 6.5 ACHIEVES STRINGENT GLYCEMIC GOAL < 7.0 ACHIEVES GENERAL GLYCEMIC GOAL(NON- ADULTS) < 8.0 ACHIEVES LESS STRINGENT GLYCEMIC GOAL 36 Relative blood cell counts (%) should be compared with absolute cell counts (cells/mcL). Relative counts may not be clinically meaningful if the absolute count of one or more cell type is decreased. Reference ranges for relative cell counts derived from: A Manual of Laboratory and Diagnostics Tests, 9th Ed, [employer], 2015. Pediatric Reference Intervals, 7th Ed, [facility], 2011. 37 VOMITING, DIARRHEA, GEN ILL 38 POSSIBLE UROGENITAL CONTAMINATION. 39 URINE, CLEAN CATCH 40 Method: Reema [place] Hemoccult Card 41 NO ENTERIC PATHOGENS ISOLATED 42 ................................................... 43 INCLUDES TESTING FOR SALMONELLA, SHIGELLA, AEROMONAS, 44 PLESIOMONAS, CAMPYLOBACTER, AND E. COLI 0157:H7 45 ................................................... 46 YERSINIA AND VIBRIO ARE NOT ROUTINELY SCREENED FOR AND 47 SHOULD BE REQUESTED SEPARATELY SCANT ENTERIC LEYLA ISOLATED 48 Test not performed INSUFFICENT GROWTH TO PERFORM TESTING 49 Test not performed INSUFFICENT GROWTH TO PERFORM TESTING 50 NEGATIVE FOR C. DIFFICILE TOXIN A/B. Method: Alere Tox A/B Quik Chek Rapid Immunoassay CORRELATE RESULTS WITH CLINICAL CONDITION. 51 Note: Persistent reduction for 3 months or more in an eGFR <60 mL/min/1.73 m2 defines CKD. Patients with eGFR values >/=60 mL/min/1.73 m2 may also have CKD if evidence of persistent proteinuria is present. The original MDRD equation for estimated GFR is not valid for patients less than 18 years of age. Additional information may be found at [email or web address].org. 52 11/15/16 002: NEUT% previously reported as: 82.0 H % Amended result called to: [] 11/15/16 at 2611/15/16 0027: LYMPH % previously reported as: 4.6 L % Amended result called to: [] 11/15/16 at 0027 11/15/16 0027: MONO % previously reported as: 12.8 % Amended result called to: [] 11/15/16 at 2611/15/16 0027: EO% previously reported as: 0.4 % Amended result called to: [] 11/15/16 at 0027 11/15/16 0027: BAS% previously reported as: 0.2 % Amended result called to: [] 11/15/16 at 0027 53 Relative blood cell counts (%) should be compared with absolute cell counts (cells/mcL). Relative counts may not be clinically meaningful if the absolute count of one or more cell type is decreased. Reference ranges for relative cell counts derived from: A Manual of Laboratory and Diagnostics Tests, 9th Ed, [employer], 2015. Pediatric Reference Intervals, 7th Ed, [facility], 2011. 54 GLUCOSE REFERENCE RANGE BASED ON FASTING SPECIMEN. 55 The upper reference limit for Creatinine is approximately 13% higher for people identified as -Macedonian. 56 SYMPTOMATIC BRADYCARDIA 57 SOB 58 URINE, CLEAN CATCH 59 CADET TO LUGO 60 NO GROWTH: FINAL REPORT 61 NO GROWTH: FINAL REPORT 62 NO GROWTH: FINAL REPORT 63 NO GROWTH: FINAL REPORT 64 SOB 65 Tests: dIGOXIN LEVEL Instructions: 66 FASTING 67 According to ADA guidelines, hemoglobin A1c <7.0% represents optimal control in non- diabetic patients. Different metrics may apply to specific patient populations. Standards of Medical Care in Diabetes-2013. Diabetes Care. 2013;36:s11-s66 For the purpose of screening for the presence of diabetes: A1C VALUE INTERPRETATION <5.7% Consistent with the absence of diabetes 5.7 - 6.4% Consistent with increased risk for diabetes (prediabetes) > or=6.5% Consistent with diabetes Currently, no consensus exists regarding use of hemoglobin A1C for diagnosis of diabetes in children. 68 LDL-CHOLESTEROL RISK CATEGORY* GOAL VERY HIGH (E.G. DIABETES + CVD) <70 MG/DL HIGH (DIABETICS; CHD RISK EQUIVALENTS) <100 MG/DL MODERATELY HIGH (MULTIPLE(2+) RISK FACTORS) <130 MG/DL 0 TO 1 RISK FACTORS <160 MG/DL * NCEP REPORT. CIRCULATION 2004; 110: 227-239 69 Target for non-HDL cholesterol is 30 mg/dL higher than LDL cholesterol target. 70 GLUCOSE REFERENCE RANGE BASED ON FASTING SPECIMEN. 71 The upper reference limit for Creatinine is approximately 13% higher for people identified as -Macedonian. 72 Relative blood cell counts (%) should be compared with absolute cell counts (cells/mcL). Relative counts may not be clinically meaningful if the absolute count of one or more cell type is decreased. Reference ranges for relative cell counts derived from: A Manual of Laboratory and Diagnostics Tests, 9th Ed, [employer], 2015. Pediatric Reference Intervals, 7th Ed, [facility] Press, 2011. 73 [id number] 74 >100 to <200 pg/mL: likely compensated congestive heart failure (CHF) 200 to 400 pg/mL: likely moderate CHF >400 pg/mL: likely moderate to severe CHF 75 Because ethnic data is not always readily available, this report includes an eGFR for both -Americans and non- Americans. The National Kidney Disease Education Program (NKDEP) does not endorse the use of the MDRD equation for patients that are not between the ages of 18 and 70, are , have extremes of body size, muscle mass, or nutritional status, or are non- or non-. According to the National Kidney Foundation, irrespective of diagnosis, the stage of the disease is based on the level of kidney function: Stage Description GFR(mL/min/1.73 m(2)) 1 Kidney damage with normal or decreased GFR 90 2 Kidney damage with mild decrease in GFR 60-89 3 Moderate decrease in GFR 30-59 4 Severe decrease in GFR 15-29 5 Kidney failure <15 (or dialysis) 76 FASTING 77 LDL-CHOLESTEROL RISK CATEGORY* GOAL VERY HIGH (E.G. DIABETES + CVD) <70 MG/DL HIGH (DIABETICS; CHD RISK EQUIVALENTS) <100 MG/DL MODERATELY HIGH (MULTIPLE(2+) RISK FACTORS) <130 MG/DL 0 TO 1 RISK FACTORS <160 MG/DL * NCEP REPORT. CIRCULATION 2004; 110: 227-239 78 Target for non-HDL cholesterol is 30 mg/dL higher than LDL cholesterol target. 79 REFERENCE RANGES BELOW ARE APPLICABLE TO FEMALES FIRST TRIMESTER - 0.26 - 2.66 mIU/L SECOND TRIMESTER - 0.55 - 2.73 mIU/L THIRD TRIMESTER - 0.43 - 2.91 mIU/L 80 GLUCOSE REFERENCE RANGE BASED ON FASTING SPECIMEN. 81 The upper reference limit for Creatinine is approximately 13% higher for people identified as -Macedonian. 82 Relative blood cell counts (%) should be compared with absolute cell counts (cells/mcL). Relative counts may not be clinically meaningful if the absolute count of one or more cell type is decreased. Reference ranges for relative cell counts derived from: A Manual of Laboratory and Diagnostics Tests, 9th Ed, [employer], 2015. Pediatric Reference Intervals, 7th Ed, [employer], 2011. 83 GLUCOSE REFERENCE RANGE BASED ON FASTING SPECIMEN. 84 The upper reference limit for Creatinine is approximately 13% higher for people identified as -Macedonian. 85 GLUCOSE REFERENCE RANGE BASED ON FASTING SPECIMEN. 86 The upper reference limit for Creatinine is approximately 13% higher for people identified as -Macedonian. 87 GLUCOSE REFERENCE RANGE BASED ON FASTING SPECIMEN. 88 The upper reference limit for Creatinine is approximately 13% higher for people identified as -Macedonian. 89 Vitamin D Status 25-OH Vitamin D: Deficiency: <20 ng/mL Insufficiency: 20-29 ng/mL Optimal: > or=30 ng/mL For 25-OH Vitamin D testing on patients on D2-supplementation and patients for whom quantitation of D2 and D3 fractions is required, [facility] 25-OH Vit D, (D2,D3),LC/MS/MS is recommended: Order code 28786 (patients >2 yrs). 90 REFERENCE RANGES BELOW ARE APPLICABLE TO FEMALES FIRST TRIMESTER - 0.26 - 2.66 mIU/L SECOND TRIMESTER - 0.55 - 2.73 mIU/L THIRD TRIMESTER - 0.43 - 2.91 mIU/L 91 GLUCOSE REFERENCE RANGE BASED ON FASTING SPECIMEN. 92 The upper reference limit for Creatinine is approximately 13% higher for people identified as -Macedonian. 93 LDL-CHOLESTEROL RISK CATEGORY* GOAL VERY HIGH (E.G. DIABETES + CVD) <70 MG/DL HIGH (DIABETICS; CHD RISK EQUIVALENTS) <100 MG/DL MODERATELY HIGH (MULTIPLE(2+) RISK FACTORS) <130 MG/DL 0 TO 1 RISK FACTORS <160 MG/DL * NCEP REPORT. CIRCULATION 2004; 110: 227-239 94 Target for non-HDL cholesterol is 30 mg/dL higher than LDL cholesterol target. 95 Note: Persistent reduction for 3 months or more in an eGFR <60 mL/min/1.73 m2 defines CKD. Patients with eGFR values >/=60 mL/min/1.73 m2 may also have CKD if evidence of persistent proteinuria is present. The original MDRD equation for estimated GFR is not valid for patients less than 18 years of age. Additional information may be found at www.kdoqi.org. 96 Note: Persistent reduction for 3 months or more in an eGFR <60 mL/min/1.73 m2 defines CKD. Patients with eGFR values >/=60 mL/min/1.73 m2 may also have CKD if evidence of persistent proteinuria is present. The original MDRD equation for estimated GFR is not valid for patients less than 18 years of age. Additional information may be found at www.[email or web address]. Procedures Date Code Description Status 02/20/2017 [id number] Bone Mineral Density Test Completed 02/20/2017 68385 Dxa Bone Density Axial Skeleton Inc Vertebral Fracture Completed Assessment 02/20/2017 34214 PVR-Atrerial Study Completed 01/30/2017 74278 Non-Invcorrotid/Comp /Bilat Study Completed 11/01/2016 [id number] Mammogram Completed 03/11/2016 25819 Non-Invcorrotid/Comp /Bilat Study Completed 05/31/2015 31468 EKG-Tracing & Report Completed 02/28/2015 73031 EKG-Tracing & Report Completed 02/27/2015 06134 PVR-Atrerial Study Completed 02/23/2015 71646 Spirometry Graphic Record/Max Voluntary Vent Completed 02/23/2015 32214 EKG-Tracing & Report Completed 02/23/2015 02553 Bone Density Completed 11/28/2014 87406 Holter Monitor Office Completed 10/17/2006 [id number] Colonoscopy Completed 09/12/2006 29308 Doppler Colow Flow Velocity Completed 09/12/2006 89193 Doppler Cardiac Completed 09/12/2006 65814 ECHO-2DW/Wo M-Mode Completed Encounters Type Date Location Provider Dx Diagnosis Office Visit 05/20/2018 Main Office Go Barrios MD K59.00 Constipation, 2:45p unspecified E66.9 Obesity, unspecified I11.9 Hypertensive heart disease without heart failure I48.91 Unspecified atrial fibrillation J44.0 Chronic obstructive pulmon disease w acute lower resp infct G47.33 Obstructive sleep apnea (adult) (pediatric) E78.5 Hyperlipidemia, unspecified Z00.00 Encntr for general adult medical exam w/o abnormal findings Z23 Encounter for immunization Office Visit 05/19/2018 8:15a Main Office Go Barrios MD K59.00 Constipation, unspecified B02.9 Zoster without complications E66.9 Obesity, unspecified I11.9 Hypertensive heart disease without heart failure Office Visit 01/28/2018 10:15a Main Office Go Barrios MD I48.91 Unspecified atrial fibrillation J44.0 Chronic obstructive pulmon disease w acute lower resp infct I11.9 Hypertensive heart disease without heart failure E66.9 Obesity, unspecified Office Visit 10/09/2017 10:15a Main Office Go Barrios MD I48.91 Unspecified atrial fibrillation J44.0 Chronic obstructive pulmon disease w acute lower resp infct I11.9 Hypertensive heart disease without heart failure G47.33 Obstructive sleep apnea (adult) (pediatric) I65.23 Occlusion and stenosis of bilateral carotid arteries Office Visit 08/26/2017 9:30a Main Office Go Barrios MD T78.40xD Allergy, unspecified, subsequent encounter G47.33 Obstructive sleep apnea (adult) (pediatric) I11.9 Hypertensive heart disease without heart failure Office Visit 08/05/2017 11:50a Main Office Kameron Lambert, T78.40xD Allergy MD unspecified, subsequent encounter T88.7xxA Unsp adverse effect of drug or medicament, init encntr J44.0 Chronic obstructive pulmon disease w acute lower resp infct Office Visit 08/01/2017 12:00p Main Office Go Barrios MD I11.9 Hypertensive heart disease without heart failure G47.33 Obstructive sleep apnea (adult) (pediatric) I48.91 Unspecified atrial fibrillation J44.9 Chronic obstructive pulmonary disease, unspecified E78.5 Hyperlipidemia, unspecified E66.9 Obesity, unspecified K12.30 Oral mucositis (ulcerative), unspecified Office Visit 04/10/2017 1:00p Main Office Go Barrios MD I11.9 Hypertensive heart disease without heart failure G47.33 Obstructive sleep apnea (adult) (pediatric) I48.91 Unspecified atrial fibrillation J44.9 Chronic obstructive pulmonary disease, unspecified Z00.00 Encntr for general adult medical exam w/o abnormal findings N17.8 Other acute kidney failure E78.5 Hyperlipidemia, unspecified E66.9 Obesity, unspecified Z23 Encounter for immunization Office Visit 03/10/2017 1:00p Main Office Go Barrios MD N17.8 Other acute kidney failure I11.9 Hypertensive heart disease without heart failure G47.33 Obstructive sleep apnea (adult) (pediatric) I48.91 Unspecified atrial fibrillation J44.9 Chronic obstructive pulmonary disease, unspecified Z00.00 Encntr for general adult medical exam w/o abnormal findings Office Visit 11/19/2016 2:00p Main Office Go Barrios MD R19.7 Diarrhea, unspecified J02.9 Acute pharyngitis, unspecified I11.9 Hypertensive heart disease without heart failure Office Visit 11/14/2016 2:00p Main Office Adore Lambert, J01.90 Acute sinusitis, M.D. unspecified Office Visit 11/04/2016 3:15p Main Office Go Barrios MD G47.33 Obstructive sleep apnea (adult) (pediatric) I48.91 Unspecified atrial fibrillation J44.9 Chronic obstructive pulmonary disease, unspecified I11.9 Hypertensive heart disease without heart failure K21.0 Gastro-esophageal reflux disease with esophagitis I65.23 Occlusion and stenosis of bilateral carotid arteries R92.0 Mammographic microcalcification found on dx imaging of brst E78.5 Hyperlipidemia, unspecified Office Visit 08/26/2016 10:45a Main Office Go Barrios MD I50.21 Acute systolic (congestive) heart failure G47.33 Obstructive sleep apnea (adult) (pediatric) I48.91 Unspecified atrial fibrillation J44.9 Chronic obstructive pulmonary disease, unspecified I11.9 Hypertensive heart disease without heart failure Office Visit 07/16/2016 2:30p Main Office Go Barrios MD G47.33 Obstructive sleep apnea (adult) (pediatric) K59.00 Constipation, unspecified I48.91 Unspecified atrial fibrillation J44.9 Chronic obstructive pulmonary disease, unspecified I11.9 Hypertensive heart disease without heart failure K21.0 Gastro-esophageal reflux disease with esophagitis R92.0 Mammographic microcalcification found on dx imaging of brst Office Visit 05/30/2016 1:15p Main Office Go Barrios MD K59.00 Constipation, unspecified G47.33 Obstructive sleep apnea (adult) (pediatric) I48.91 Unspecified atrial fibrillation Office Visit 03/28/2016 10:00a Main Office Go Barrios MD I48.91 Unspecified atrial fibrillation J44.9 Chronic obstructive pulmonary disease, unspecified I11.9 Hypertensive heart disease without heart failure K21.0 Gastro-esophageal reflux disease with esophagitis Z00.00 Encntr for general adult medical exam w/o abnormal findings Office Visit 12/19/2015 1:30p Main Office Go Barrios MD J44.9 Chronic obstructive pulmonary disease, unspecified I11.9 Hypertensive heart disease without heart failure K21.0 Gastro-esophageal reflux disease with esophagitis R06.00 Dyspnea, unspecified Office Visit 09/13/2015 1:00p Main Office Go Barrios MD J44.9 Chronic obstructive pulmonary disease, unspecified I11.9 Hypertensive heart disease without heart failure R42 Dizziness and giddiness R00.1 Bradycardia, unspecified R55 Syncope and collapse Office Visit 06/08/2015 2:30p Main Office Go Barrios MD E78.5 Hyperlipidemia, unspecified M81.0 Age-related osteoporosis w/o current pathological fracture J44.9 Chronic obstructive pulmonary disease, unspecified I11.9 Hypertensive heart disease without heart failure Office Visit 03/02/2015 11:30a Main Office Go Barrios MD 733.00 Osteoporosis Unspec 427.31 Atrial Fibrillation 425.40 Cardiomyopathy 496 Chronic Obstructive Pulmonary Disease 402.10 Hypertensive Heart Disease Benign W/O Heart Failure 715.90 Degenerative Joint Disease Genlzd Or Localzd Site Unspec 268.9 Vitamin D Deficiency Unspec V72.0 Examination Eyes & Vision V72.2 Examination Dental V70.0 Examination General Medical Routine AT Health Care Facility V03.82 Streptococcus Pneumoniae Vaccination Spec Other GENERAL General Office Visit 02/28/2015 9:45a Main Office Go Barrios MD 427.31 Atrial Fibrillation 424.1 Aortic Valve Disorder GENERAL General Office Visit 12/05/2014 4:00p Main Office Go Barrios MD 496 Chronic Obstructive Pulmonary Disease 425.40 Cardiomyopathy 402.10 Hypertensive Heart Disease Benign W/O Heart Failure GENERAL General Office Visit 11/22/2014 1:00p Main Office Go Barrios MD 496 Chronic Obstructive Pulmonary Disease 715.90 Degenerative Joint Disease Genlzd Or Localzd Site Unspec 272.4 Hyperlipidemia Other Unspec 268.9 Vitamin D Deficiency Unspec 426.6 Heart Block Other 425.40 Cardiomyopathy 780.4 Dizziness & Giddiness GENERAL General Office Visit 08/03/2014 1:30p Main Office Go Barrios MD 496 Chronic Obstructive Pulmonary Disease 715.90 Degenerative Joint Disease Genlzd Or Localzd Site Unspec 272.4 Hyperlipidemia Other Unspec GENERAL General Office Visit 04/29/2014 3:45p Main Office Go Barrios MD 715.90 Degenerative Joint Disease Genlzd Or Localzd Site Unspec 496 Chronic Obstructive Pulmonary Disease 268.9 Vitamin D Deficiency Unspec 426.6 Heart Block Other 425.40 Cardiomyopathy 272.4 Hyperlipidemia Other Unspec 794.8 Liver Study Abnormal GENERAL General Plan of Treatment Future Appointment(s):08/11/2018 8:00 am - Nurse at Main Vuriam1908/25/2018 2: 45 pm - Go Barrios MD at Main Bbwrxe8505/20/2018 - Go Barrios MDK59.00 Constipation, unspecifiedComments:RESOLVEDRECTAL BLEEDING WHEN CONSTIPATED, STOOL LIGHTLY GUIQC POSITIVEREFER [place] IMYVIQD05.9 Obesity, unspecifiedComments:EDUCATION REGARDING OBESITY REVIEWED FOR 15 MINUTES DURING JCHXKDELLAB11.9 Hypertensive heart disease without heart failureComments: STABLECONT NORVASCLASIX 40MG Q DAY PRN WEIGHT OVER 2-3 POUND GAIN CREAT IS STABLE, NO LONGER SEES DR. SANCHEZ48.91 Unspecified atrial fibrillationComments:FU [facility] STRANGE PERMANENTCONT [facility] , NOT ON RATE CONTROL AGENTSRENAL FUNCTION GOODCLINICALLY IN AFIB AT THIS TIME, ASYMPTOMATIC EKG FROM DR. ANSARI REVIEWEDECHO PER DR ANSARI, WHO WILL ORDER NOT USING CPAPJ44.0 Chronic obstructive pulmonary disease with acute lower respiratory avqqultzkA01.33 Obstructive sleep apnea (adult) (pediatric)E78.5 Hyperlipidemia , unspecifiedComments:BSECPYA04.00 Encounter for general adult medical examination without abnormal rzoamngsU01 Encounter for immunizationAllComments: UA DONEREFER DERM FOR LESION RIGHT LATERAL LEGREFER [place] GASTRORU CARDIOLOGYRTO 3 MONTHSCARD1,HAIC,LIPIDS,LFT,CKCBC BEFORE VISIT
--- OUTSIDE RECORDS SUMMARY | 2018-06-12 11:05 | XMS REPORT | Continuity of Care Document ---
:1930 External Reference #:[id number] Author Name Go Barrios MD Address [address] [place] [address] Care Team Providers Name Role Phone Go Barrios MD Care Team Information It Service Continuity Supervisor Unavailable Payers Type Date Identification Numbers Payment Provider Subscriber Policy Number: [id number] Medicare Eleanor Lionel PayID: [id number] [address] [place] [address] Policy Number: [id number] [employer] Eleanor Lionel PayID: [id number] [address] [address] [place] [address] Advance Directives Description No Information Available Problems [...] three times a MD Denis day Lactulose 16 Active Solution 20GM/30ML 1500m 30 l milliliters [...] Active Tablets 20mg 30tab 1 by mouth El s every day Ring, Polyethylene 05/30 Active Packet 3350NF 90uni 1 packet Elyn Glycol 335 /2015 ts every day Ring, Triamcinolone Active Cream 0.1% apply as Elyn Acetonide /0000 needed Ring, Ondansetron 08/26 Hx Tablets 4mg 30tab 1 by mouth yn HCL s every 4 hours Ring, - as needed 10/09 nausea when taking zithromax Prednisone 08/05 Hx Tablets 20mg 8tabs 2 by mouth J44.0 Kameron F. /2017 every day MD Fausto - 08/26 Nystatin 08/01 Hx Suspension 329017Pxz 240ml 1 teaspoon t/ML four times a [...] before Ring, - meals and at 05/30 bed dissolve in 1 tablespoon water Boniva 03/02 Hx Tablets 150mg 3tabs Tab 1 Q Month Drink Large Ring, - Lius Daniel Of 12/18 Water Med DO Not Lie Down For AT Least 1/2 Hour After Taking Med Magnesium 04/29 Hx Capsules 400mg 90cap 1 by mouth Elyn /2013 s every day Ring, - 12/18 [...] a day Ring, - 08/01 Klor-Con M20 Hx Tablets ER 20Meq 1 every day Davidenko /0000 as needed ,Ulises - when taking 03/10 the Amiodarone HCL Hx Tablets 200mg once daily Unknown /0000 - 07/16 Lasix Hx Tablets 40mg 1 tab po bid Unknown /0000 - 03/10 Digox Hx Tablets 125mcg Unknown /0000 - 08/26 Magnesium Hx Capsules 400mg daily Unknown Oxide -MG /0000 Supplement - 03/10 Potassium 00/00 Hx Tablets ER 10Meq 1 by mouth Unknown Chloride ER /0000 every day - 03/10 Immunizations CPT Code Status Date Vaccine Reaction Lot # [id number] Given 05/20/2018 Influenza Virus (Afluria) [id number] Split Virus 3 Years Of Age And Older Q2035 Given 04/10/2017 Influenza Virus (Afluria) [id number] Split Virus 3 Years Of Age And Older 45203 Given 04/10/2017 Pneumovax Polyvalent Inj Im [id number] 98182 Given 04/10/2017 Pneumovax Polyvalent Inj Im Q2035 Given 05/24/2015 Influenza Virus (Afluria) Split Virus 3 Years Of Age And Older 99033 Given 03/02/2015 Pneumococcal Conjugate [id number] Vaccine 13 Valent For Intramuscular Use 47136 Given 12/23/2007 Tetanus,Diphtheria,Adut/Ado DONE THROUGH PREVIOUS l Pertussis PROVIFER 81492 Given 05/15/2007 Influenza Vaccine [id number] Vital Signs Date Vital Result Comment 05/20/2018 [...] Lab Sodium 136 mmol/L 135-[address] [place] [address] [phone] Potassium 4.0 mmol/L 3.5-5.3 Chloride 99 mmol/L [...] 1.9-3.7 A/G Ratio 1.8 1.0-2.5 Egfr Non-Afr. Djiboutian 60 ML/MIN/1.73M2 > Or=60 Egfr 69 ML/MIN/1.73M2 > Or=60 CBC W/ Diff & PLT 05/13/2018 [facility] WBC 9.0 thous/L 3.8-10.[address] [place] [address] [phone] RBC 4.58 mill/L 3.80-5.10 Hemoglobin 14.1 g/dL 11.7-15.5 Hematocrit 41.7 % 35.0-45.0 MCV 91.2 FL 80.0-100.0 MCH 30.8 pg 27.0-33.0 MCHC 33.8 g/dL 32.0-36.0 RDW 15.2 % High 11.0-15.0 Platelet Count 218 thous/L 140-400 MPV 9.0 FL 7.5-12.5 Neutrophils,Absolute 5570 cells/L 5875-6859 Bands,Absolute PENDING Metamyelocytes,Absolute PENDING Myelocytes,Absolute PENDING Promyelocytes,Absolute [...] [facility] Cholesterol 184 mg/dL <199 [address] [place] [address] [phone] HDL Cholesterol 100 mg/dL >50 Cholesterol/HDL Ratio 1.8 CALC <5.0 LDL Chol,Calculated 70 mg/dL 0-100 6 Triglycerides 61 mg/dL <150 7 Comp Metabolic Panel 01/14/2018 [facility] Sodium 137 mmol/L 135-146 [address] [place] [address] [phone] Potassium 3.8 mmol/L 3.5-5.3 Chloride 100 mmol/L [...] 1.9-3.7 A/G Ratio 1.9 1.0-2.5 Egfr Non-Afr. Djiboutian 59 ML/MIN/1.73M2 Low > Or=60 Egfr 68 ML/MIN/1.73M2 > Or=60 CBC W/ Diff & PLT 01/14/2018 [facility] WBC 7.1 thous/L 3.8-10.8 [address] [place] [address] [phone] RBC 4.75 mill/L 3.80-5.10 Hemoglobin 14.5 g/dL 11.7-15.5 Hematocrit 42.9 % 35.0-45.0 MCV 90.3 FL 80.0-100.0 MCH 30.6 pg 27.0-33.0 MCHC 33.8 g/dL 32.0-36.0 RDW 15.4 % High 11.0-15.0 Platelet Count 247 thous/L 140-400 Platelet Sufficiency PENDING MPV 9.3 FL 7.5-12.5 Neutrophils,Absolute 3960 cells/L 5211-0500 Bands,Absolute PENDING Metamyelocytes,Absolute PENDING Myelocytes,Absolute PENDING Promyelocytes,Absolute [...] [facility] Cholesterol 196 mg/dL <199 [address] [place] [address] [phone] HDL Cholesterol 98 mg/dL >50 Cholesterol/HDL Ratio 2.0 CALC <5.0 LDL Chol,Calculated 83 mg/dL 0-100 11 Triglycerides 66 mg/dL <150 Non-HDL Cholesterol 98 mg/dL <130 12 CBC W/ Diff & PLT 10/02/2017 [facility] WBC 7.8 thous/L 3.8-10.8 [address] [place] [address] [phone] RBC 4.69 mill/L 3.80-5.10 Hemoglobin 13.9 g/dL 11.7-15.5 Hematocrit 41.1 % 35.0-45.0 MCV 87.7 FL 80.0-100.0 MCH 29.6 pg 27.0-33.0 MCHC 33.8 g/dL 32.0-36.0 RDW 15.7 % High 11.0-15.0 Platelet Count 215 thous/L 140-400 Platelet Sufficiency PENDING MPV 9.9 FL 7.5-12.5 Neutrophils,Absolute 3660 cells/L [phone] Bands,Absolute PENDING Metamyelocytes,Absolute PENDING Myelocytes,Absolute PENDING Promyelocytes,Absolute [...] [facility] Sodium 138 mmol/L 135-[address] [place] [address] [phone] Potassium 4.3 mmol/L 3.5-5.3 Chloride 103 mmol/L 98-110 Carbon Dioxide 27 mmol/L 20-31 Calcium 9.5 mg/dL 8.6-10.4 Glucose 84 mg/dL 65-99 14 Urea Nitrogen (BUN) 18 mg/dL 7-25 Creatinine 0.92 mg/dL High 0.60-0.88 15 BUN/Creatinine Ratio 19.9 6-22 Egfr Non-Afr. Djiboutian 56 ML/MIN/1.73M2 Low > Or=60 Egfr 65 ML/MIN/1.73M2 > Or=60 Laboratory test 10/02/2017 [facility] Hemoglobin A1c 5.2 % 0-5.6 [address] [place] [address] [phone] Lipid Panel 10/02/2017 [facility] Cholesterol 185 mg/dL <[address] [place] [address] [phone] HDL Cholesterol 83 mg/dL >50 Cholesterol/HDL Ratio 2.2 CALC <5.0 LDL Chol,Calculated 88 mg/dL 0-100 17 Triglycerides 62 mg/dL <150 Non-HDL Cholesterol 102 mg/dL <130 18 Hepatic Function 10/02/2017 [facility] Alkaline Phosphatase 71 U/L 33- [address] [place] [address] [phone] Ast 17 U/L 10-35 Alt 12 U/L 6-29 Bilirubin,Total 1.2 mg/dL 0.2-1.2 Bilirubin,Direct 0.2 mg/dL < Or=0.2 Protein,Total 6.5 g/dL 6.1-8.1 Albumin 4.2 g/dL 3.6-5.1 Globulin,Calculated 2.3 g/dL 1.9-3.7 A/G Ratio 1.8 1.0-2.5 Laboratory test 10/02/2017 [facility] Creatine 74 U/L 29-[address] Kinase,[place] [address] [phone] Urinalysis With 08/01/2017 [facility] Urine Color YELLOW Yellow [address] [place] [address] [phone] Urine Clarity CLEAR Clear Urine Glucose - Dipstick NEGATIVE mg/dL Negative Urine Bilirubin - Dipstick NEGATIVE Negative Urine Ketone NEGATIVE mg/dL Negative Urine Specific [place] 1.015 1.010-1.030 Urine Blood NEGATIVE Negative Urine [...] CAT <SEE NOTE> 21 Urine Culture 08/01/2017 [facility] Urine Culture MIXED URETHRAL F [address] <SEE NOTE> [place] [address] [phone] Quantity < 10,000 CFU/mL CBC W/ Diff & PLT 07/08/2017 [facility] WBC 7.6 thous/L 3.8-10.[address] [place] [address] [phone] RBC 4.67 mill/L 3.80-5.10 Hemoglobin 13.8 g/dL 11.7-15.5 Hematocrit 41.5 % 35.0-45.0 MCV 88.9 FL 80.0-100.0 MCH 29.5 pg 27.0-33.0 MCHC 33.2 g/dL 32.0-36.0 RDW 14.9 % 11.0-15.0 Platelet Count 214 thous/L 140-400 Platelet Sufficiency PENDING MPV 9.4 FL 7.5-12.5 Neutrophils,Absolute 4430 cells/L 8611-0182 Bands,Absolute PENDING Metamyelocytes,Absolute PENDING Myelocytes,Absolute PENDING Promyelocytes,Absolute [...] [facility] Sodium 138 mmol/L 135-[address] [place] [address] [phone] Potassium 4.0 mmol/L 3.5-5.3 Chloride 103 mmol/L [...] 1.9-3.7 A/G Ratio 1.8 1.0-2.5 Egfr Non-Afr. Djib[place]ian 52 ML/MIN/1.73M2 Low > Or=60 Egfr 61 ML/MIN/1.73M2 > Or=60 Lipid Panel 07/08/2017 [facility] Cholesterol 187 mg/dL <199 [address] [place] [address] [phone] HDL Cholesterol 87 mg/dL >50 Cholesterol/HDL Ratio 2.1 CALC <5.0 LDL Chol,Calculated 83 mg/dL 0-100 27 Triglycerides 84 mg/dL <150 Non-HDL Cholesterol 101 mg/dL <130 28 Hepatic Function 07/08/2017 [facility] Alkaline Phosphatase 76 U/L 33- [address] [place] [address] [phone] Ast 15 U/L 10-35 Alt 9 U/L 6-29 Bilirubin,Total 0.8 mg/dL 0.2-1.2 Bilirubin,Direct 0.2 mg/dL < Or=0.2 Protein,Total 6.5 g/dL 6.1-8.1 Albumin 4.2 g/dL 3.6-5.1 Globulin,Calculated 2.3 g/dL 1.9-3.7 A/G Ratio 1.8 1.0-2.5 Laboratory test 07/08/2017 [facility] Creatine 94 U/L 29-[address] Kinase,[place] [address] [phone] TSH & T4,Free 07/08/2017 [facility] TSH 2.91 0.40-4.[address] mIU/[place] [address] [phone] T4,Free 1.4 ng/dL 0.8-1.8 Basic Metabolic Panel 04/01/2017 [facility] Sodium 140 mmol/L 135-[address] [place] [address] [phone] Potassium 4.3 mmol/L 3.5-5.3 Chloride 107 mmol/L 98-110 Carbon Dioxide 23 mmol/L 20-31 Calcium 9.4 mg/dL 8.6-10.4 Glucose 86 mg/dL 65-99 30 Urea Nitrogen 23 mg/dL 7-25 Creatinine 1.22 mg/dL High 0.60-0.88 31 BUN/Creatinine Ratio 18.6 6-22 Egfr Non-Afr. Djib[place]ian 40 ML/MIN/1.73M2 Low > Or=60 Egfr 47 ML/MIN/1.73M2 Low > Or=60 General Health Panel 02/20/2017 [facility] TSH 2.60 mIU/L 0.40-4.[address] [place] [address] [phone] T4,Free 1.4 ng/dL 0.8-1.8 Comp Metabolic Panel 02/20/2017 [facility] Sodium 136 mmol/L 135-[address] [place] [address] [phone] Potassium 4.2 mmol/L 3.5-5.3 Chloride 100 mmol/L [...] 1.9-3.7 A/G Ratio 1.5 1.0-2.5 Egfr Non-Afr. Djib[place]ian 24 ML/MIN/1.73M2 Low > Or=60 Egfr 28 ML/MIN/1.73M2 Low > Or=60 Laboratory test 02/20/2017 [facility] Creatine 59 U/L 29-[address] Kinase,[place] [address] [phone] Hemoglobin A1c 5.6 % 0-5.6 35 CBC W/ Diff & PLT 02/20/2017 [facility] WBC 10.5 thous/L 3.8-10.[address] [place] [address] [phone] RBC 4.32 mill/L 3.80-5.10 Hemoglobin 12.9 g/dL 11.7-15.5 Hematocrit 38.9 % 35.0-45.0 MCV 90.0 FL 80.0-100.0 MCH 29.9 pg 27.0-33.0 MCHC 33.3 g/dL 32.0-36.0 RDW 14.7 % 11.0-15.0 Platelet Count 246 thous/L 140-400 Platelet Sufficiency PENDING MPV 9.4 FL 7.5-12.5 Neutrophils,Absolute 7220 cells/L 2323-1319 Bands,Absolute PENDING Metamyelocytes,Absolute PENDING Myelocytes,Absolute PENDING Promyelocytes,Absolute [...] Phosphatase 96 U/L 33- [address] [place] [address] [phone] Ast 12 U/L 10-35 Alt 6 U/L 6-29 Bilirubin,Total 1.1 mg/dL 0.2-1.2 Bilirubin,Direct 0.2 mg/dL < Or=0.2 Protein,Total 6.4 g/dL 6.1-8.1 Albumin 3.9 g/dL 3.6-5.1 Globulin,Calculated 2.5 g/dL 1.9-3.7 A/G Ratio 1.5 1.0-2.5 Laboratory test 02/20/2017 [facility] Cholesterol 167 mg/dL 125-[address] [place] [address] [phone] Urinalysis With 11/15/2016 [facility] Urine Color YELLOW Yellow 37 Microscopic [address] [place] [address] [phone] Urine Clarity CLEAR Clear Urine Glucose - Dipstick NEGATIVE mg/dL Negative Urine Bilirubin - Dipstick NEGATIVE Negative Urine Ketone NEGATIVE mg/dL Negative Urine Specific [place] 1.010 1.010-1.030 Urine Blood NEGATIVE Negative Urine [...] CAT <SEE NOTE> 39 Laboratory test 11/15/2016 [facility] Occult NEGATIVE Negative [address] [place] [address] [phone] Smear For WBC'S 11/15/2016 [facility] Smear For WBC'S VERY FEW [address] [place] [address] [phone] Smear Source: STOOL Specimen Source: STOOL Stool Culture 11/15/2016 [facility] Stool Culture NO ENTERIC PATHO [address] <SEE NOTE> [place] [address] [phone] . ................ <SEE NOTE> 42 Note: INCLUDES TESTING <SEE NOTE> 43 . PLESIOMONAS, CAM <SEE NOTE> 44 . ................ <SEE NOTE> 45 . YERSINIA AND VIB <SEE NOTE> 46 . SHOULD BE REQUES <SEE NOTE> 47 Shiga Toxin 1 Antigen Test not perform <SEE NOTE> 48 Shiga Toxin 2 Antigen Test not perform <SEE NOTE> 49 C. Difficile 11/15/2016 [facility] C. Difficile NEGATIVE FOR 50 Toxin A/B [address] Toxin A/B C. <SEE NOTE> [place] [address] [phone] Differential-WBC 11/14/2016 [facility] Total Cells 100 #CELLS Confirm [address] [place] [address] [phone] Band% 6 % 0-8 Neutrophils% 80 % High 33-73 Lymph% 8 % Low 20-42 Monocyte% 4 % 0-10 Basophil% 2 % 0-2 Platelet Estimate NORMAL Anisocytosis 1+ Differential Comment LRG PLTS SEEN Comprehensive 11/14/2016 [facility] Glucose 119 mg/ dL High 74-106 Metabolic Panel [address] [place] [address] [phone] BUN 29 mg/dL High 7-18 Creatinine 1.3 [...] Phosphatase 95 U/L 45-117 Laboratory test 11/14/2016 [facility] Lipase 238 U/L 73-[address] [place] [id number] [phone] Slide Review 11/14/2016 [facility] Slide DIFF ORDERED [address] [place] [place] [address] [phone] CBS W/Automated 11/14/2016 [facility] White Blood 18.0 K/uL High 3.1-10.[address] [place] [address] [phone] Red Blood Count 4.55 M/uL 3.90-5.40 Hemoglobin [...] 1.8-7.0 Lymph # 0.83 K/uL Low 1.0-4.0 [place] # 2.31 K/uL High 0.3-0.9 Eos # 0.07 K/uL 0.0-0.5 Baso # 0.04 K/uL 0.0-0.1 CBC W/ Diff & PLT 10/28/2016 [facility] WBC 8.1 thous/L 3.8-10.8 [address] [place] [address] [phone] RBC 4.51 mill/L 3.80-5.10 Hemoglobin 13.2 g/dL 11.7-15.5 Hematocrit 40.4 % 35.0-45.0 MCV 89.6 FL 80.0-100.0 MCH 29.2 pg 27.0-33.0 MCHC 32.6 g/dL 32.0-36.0 RDW 14.9 % 11.0-15.0 Platelet Count 226 thous/L 140-400 Platelet Sufficiency PENDING MPV 9.5 FL 7.5-12.5 Neutrophils,Absolute 4890 cells/L 3986-8718 Bands,Absolute PENDING Metamyelocytes,Absolute PENDING Myelocytes,Absolute PENDING Promyelocytes,Absolute [...] [facility] Sodium 139 mmol/L 135-[address] [place] [address] [phone] Potassium 4.0 mmol/L 3.5-5.3 Chloride 104 mmol/L 98-110 Carbon Dioxide 28 mmol/L 20-31 Calcium 9.4 mg/dL 8.6-10.4 Glucose 83 mg/dL 65-99 54 Urea Nitrogen 27 mg/dL High 7-25 Creatinine 1.03 mg/dL High 0.60-0.88 55 BUN/Creatinine Ratio 26.2 High 6-22 Egfr Non-Afr. Djib[place]ian 50 ML/MIN/1.73M2 Low > Or=60 Egfr 57 ML/MIN/1.73M2 Low > Or=60 Laboratory test 08/14/2016 [facility] Digoxin 1.3 ng/ mL 0.8-2.0 [address] [place], [place] [address] [phone] Ua RFX Micro & 08/13/2016 [facility] Urine Color YELLOW Yellow 57 Culture II [address] [place] [address] [phone] Urine Clarity CLEAR Clear Urine Glucose - Dipstick NEGATIVE mg/dL Negative Urine Bilirubin - Dipstick NEGATIVE Negative Urine Ketone NEGATIVE mg/dL Negative Urine Specific [place] 1.010 1.010-1.030 Urine Blood NEGATIVE Negative Urine PH 7.0 6.5-7.5 Urine Protein - Dipstick NEGATIVE mg/dL Negative Urine Urobilinogen - Dipstick 0.2 E.U./dL 0.2-1.0 Urine Nitrite - Dipstick NEGATIVE Negative Urine Leuk Esterase NEGATIVE Negative Source: URINE, CLEAN CAT <SEE NOTE> 58 Blood Culture 08/13/2016 [facility] Blood Culture NO GROWTH: 59, [address] Aerobic FINAL <[place] [address] NOTE> [phone] Blood Culture Anaerobic NO GROWTH: FINAL <SEE NOTE> 61 Blood Culture 08/13/2016 [facility] Blood Culture NO GROWTH: [address] Aerobic FINAL <[place] [address] NOTE> [phone] Blood Culture Anaerobic NO GROWTH: FINAL <SEE NOTE> 63 Aot Request 08/13/2016 [facility] Aot Request Test(s ) added 64, [address] [place] [address] [phone] Tests to be added: dIGOXIN LEVEL Laboratory 08/13/2016 [facility] NT-proBNP 1082.0 High <450 test finding [address] pg/[place] [address] [phone] Laboratory 07/09/2016 [facility] Hemoglobin A1c 5.7 % High 0.0-5.6 66, test finding [address] [place] [address] [phone] Lipid Panel 07/09/2016 [facility] Cholesterol 212 mg/dL High 125-[address] [place], [place] [address] [phone] HDL Cholesterol 108 mg/dL > Or=46 Cholesterol/HDL Ratio 2.0 < Or=5.0 LDL Chol,Calculated 91 mg/dL <130 68 Triglycerides 67 mg/dL <150 Non-HDL Cholesterol 104 mg/dL 69 Basic Metabolic Panel 07/09/2016 [facility] Sodium 134 mmol/L Low 135-[address] [place] [address] [phone] Potassium 4.4 mmol/L 3.5-5.3 Chloride 99 mmol/L 98-110 Carbon Dioxide 26 mmol/L 20-31 Calcium 9.5 mg/dL 8.6-10.4 Glucose 80 mg/dL 65-99 70 Urea Nitrogen 23 mg/dL 7-25 Creatinine 1.20 mg/dL High 0.60-0.88 71 BUN/Creatinine Ratio 18.8 6-22 Egfr Non-Afr. [place]ib[place]ian 41 ML/MIN/1.73M2 Low > Or=60 Egfr 48 ML/MIN/1.73M2 Low > Or=60 Hepatic Function 07/09/2016 [facility] Alkaline Phosphatase 75 U/L 33- [address] [place] [address] [phone] Ast 26 U/L 10-35 Alt 23 U/L 6-29 Bilirubin,Total 1.3 mg/dL High 0.2-1.2 Bilirubin,Direct 0.2 mg/dL < Or=0.2 Protein,Total 6.6 g/dL 6.1-8.1 Albumin 4.3 g/dL 3.6-5.1 Globulin,Calculated 2.3 g/dL 1.9-3.7 A/G Ratio 1.8 1.0-2.5 Laboratory test 07/09/2016 [facility] Creatine 101 U/L 29-[address] Kinase,Total [place], [place] [id number] [phone] CBC W/ Diff & 07/09/2016 [facility] WBC 6.7 3.8-10.[address] thous/ [place] [address] L [phone] RBC 4.61 mill/L 3.80-5.10 Hemoglobin 13.4 g/dL 11.7-15.5 Hematocrit 40.9 % 35.0-45.0 MCV 88.9 FL 80.0-100.0 MCH 29.1 pg 27.0-33.0 MCHC 32.8 g/dL 32.0-36.0 RDW 16.1 % High 11.0-15.0 Platelet Count 217 thous/L 140-400 Platelet Sufficiency PENDING MPV 9.6 FL 7.5-11.5 Neutrophils,Absolute 4360 cells/L 2984-5700 Bands,Absolute PENDING Metamyelocytes,Absolute PENDING Myelocytes,Absolute PENDING Promyelocytes,Absolute [...] Stippling PENDING Comment PENDING Laboratory test 03/17/2016 [facility] B Type 242 pg/mL High 73, [address] [place] [address] Peptide [phone] CBC Auto Diff 03/17/2016 [facility] White Blood 8.6 3.5- [address] Count 10^3/uL 10.8 [place], [place] [address] [phone] Red Blood Count 4.49 10^6/uL 4.0-5.4 Hemoglobin [...] Cells % 0.2 Comp Metabolic Panel 03/17/2016 [facility] Sodium 139 mmol/L [phone] [place], [place] [id number] [phone] Potassium 4.5 mmol/L 3.5-5.0 Chloride 105 mmol/L [...] Alkaline 70 U/L 33-130 [address] [place] [address] [phone] Ast 16 U/L 10-35 Alt 13 U/L 6-29 Bilirubin,Total 1.6 mg/dL High 0.2-1.2 Bilirubin,Direct 0.3 mg/dL High < Or=0.2 Protein,Total 6.5 g/dL 6.1-8.1 Albumin 4.3 g/dL 3.6-5.1 Globulin,Calculated 2.2 g/dL 1.9-3.7 A/G Ratio 2.0 1.0-2.5 Lipid Panel 03/12/2016 [facility] Cholesterol 166 mg/dL 125-[address] [place] [address] [phone] HDL Cholesterol 68 mg/dL > Or=46 Cholesterol/HDL Ratio 2.4 < Or=5.0 LDL Chol,Calculated 78 mg/dL <130 77 Triglycerides 98 mg/dL <150 Non-HDL Cholesterol 98 mg/dL 78 General Health Panel 03/12/2016 [facility] TSH 1.99 mIU/L 0.40-4.[address] [place] [address] [phone] T4,Free 1.3 ng/dL 0.8-1.8 CMP W/O Egfr 03/12/2016 [facility] Sodium 139 mmol/L 135-[address] [place] [address] [phone] Potassium 4.2 mmol/L 3.5-5.3 Chloride 104 mmol/L [...] [facility] WBC 8.5 thous/L 3.8-10.8 [address] [facility] [place], [place] [address] [phone] RBC 4.57 mill/L 3.80-5.10 Hemoglobin 13.8 g/dL 11.7-15.5 Hematocrit 41.3 % 35.0-45.0 MCV 90.3 FL 80.0-100.0 MCH 30.3 pg 27.0-33.0 MCHC 33.5 g/dL 32.0-36.0 RDW 15.2 % High 11.0-15.0 Platelet Count 214 thous/L 140-400 Platelet Sufficiency PENDING MPV 10.3 FL 7.5-11.5 Neutrophils,Absolute 5390 cells/L 7304-2224 Bands,Absolute PENDING Metamyelocytes,Absolute PENDING Myelocytes,Absolute PENDING Promyelocytes,Absolute [...] [facility] Sodium 139 mmol/L 135-[address] [place] [address] [phone] Potassium 4.3 mmol/L 3.5-5.3 Chloride 104 mmol/L 98-110 Carbon Dioxide 25 mmol/L 19-30 Calcium 9.4 mg/dL 8.6-10.4 Glucose 89 mg/dL 65-99 83 Urea Nitrogen 23 mg/dL 7-25 Creatinine 0.92 mg/dL High 0.60-0.88 84 BUN/Creatinine Ratio 25.1 High 6-22 BMP W/O Egfr 09/04/2015 [facility] Sodium 140 mmol/L 135-[address] [place] [address] [phone] Potassium 4.3 mmol/L 3.5-5.3 Chloride 104 mmol/L 98-110 Carbon Dioxide 27 mmol/L 19-30 Calcium 9.5 mg/dL 8.6-10.4 Glucose 91 mg/dL 65-99 85 Urea Nitrogen 21 mg/dL 7-25 Creatinine 0.76 mg/dL 0.60-0.88 86 BUN/Creatinine Ratio 27.6 High 6-22 BMP W/O Egfr 05/31/2015 [facility] Sodium 137 mmol/L 135-[address] [place] [address] [phone] Potassium 4.2 mmol/L 3.5-5.3 Chloride 103 mmol/L 98-110 Carbon Dioxide 25 mmol/L 19-30 Calcium 9.4 mg/dL 8.6-10.4 Glucose 89 mg/dL 65-99 87 Urea Nitrogen 19 mg/dL 7-25 Creatinine 0.70 mg/dL 0.60-0.88 88 BUN/Creatinine Ratio 27.0 High 6-22 Hepatic Function 02/23/2015 [facility] Alkaline Phosphatase 93 U/L 33- [address] [place] [address] [phone] Ast 17 U/L 10-35 Alt 12 U/L 6-29 Bilirubin,Total 1.0 mg/dL 0.2-1.2 Bilirubin,Direct 0.2 mg/dL < Or=0.2 Protein,Total 6.8 g/dL 6.1-8.1 Albumin 4.3 g/dL 3.6-5.1 Globulin,Calculated 2.5 g/dL 1.9-3.7 A/G Ratio 1.7 1.0-2.5 Laboratory 02/23/2015 [facility] Vitamin 26 Low 30-[address] D,25-Hydroxy,Total,Immunoassay NG/[place] [address] [phone] General 02/23/2015 [facility] TSH 2.50 0.40-4. [address] mIU/L 50 [place] [address] [phone] T4,Free 1.3 ng/dL 0.8-1.8 CMP W/O Egfr 02/23/2015 [facility] Sodium 136 mmol/L 135-[address] [place] [id number] [phone] Potassium 4.1 mmol/L 3.5-5.3 Chloride 103 mmol/L [...] [facility] WBC 9.4 thous/L 3.8-10.[address] [place] [address] [phone] RBC 4.82 mill/L 3.80-5.10 Hemoglobin 14.4 g/dL 11.7-15.5 Hematocrit 44.3 % 35.0-45.0 MCV 91.9 FL 80.0-100.0 MCH 29.8 pg 27.0-33.0 MCHC 32.4 g/dL 32.0-36.0 RDW 15.4 % High 11.0-15.0 Platelet Count 235 thous/L 140-400 Platelet Sufficiency PENDING MPV 10.1 FL 7.5-11.5 Neutrophils,Absolute 6330 cells/L [phone] Bands,Absolute PENDING Metamyelocytes,Absolute PENDING Myelocytes,Absolute PENDING Promyelocytes,Absolute [...] Lab Cholesterol 202 mg/dL High 125-200 [address] [place] [address] [phone] HDL Cholesterol 85 mg/dL > Or=46 Cholesterol/HDL Ratio 2.4 < Or=5.0 LDL Chol,Calculated 98 mg/dL <130 93 Triglycerides 96 mg/dL <150 Non-HDL Cholesterol 117 mg/dL 94 CBC W/ Diff & PLT 11/23/2014 [facility] WBC 7.2 thous/L 3.8-10.8 [address] [place] [address] [phone] RBC 4.57 mill/L 3.80-5.10 Hemoglobin 13.6 g/dL 11.7-15.5 Hematocrit 41.3 % 35.0-45.0 MCV 90.3 FL 80.0-100.0 MCH 29.6 pg 27.0-33.0 MCHC 32.8 g/dL 32.0-36.0 RDW 14.6 % 11.0-15.0 Platelet Count 232 thous/L 140-400 Platelet Sufficiency PENDING Neutrophils,Absolute 4370 cells/L [phone] Bands,Absolute PENDING Metamyelocytes,Absolute PENDING Myelocytes,Absolute PENDING Promyelocytes,Absolute [...] PENDING Comment PENDING Basic Metabolic Panel 11/15/2014 [facility] Glucose 97 mg/dL 74-[address] [place], [place] [id number] [phone] BUN 14 mg/dL 7-18 Creatinine 0.7 mg/dL 0.6-1.3 Glom Filtration Rate, Estimate >60 mL/min >60 If >60 mL/min >60 95 BUN/Creat 20.0 ratio Sodium 139 mmol/L 136-145 Potassium 3.9 mmol/L 3.5-5.1 Chloride 103 mmol/L 98-107 Carbon Dioxide 26 mmol/L 21-32 Anion Gap 10 mEq/L 8-16 Calcium 9.1 mg/dL 8.5-10.1 CBC W/ Diff & 07/22/2014 [facility] White Blood 9.2 K /uL 3.1-10.[address] [place], [place] [id number] [phone] Red Blood Count 4.52 M/uL 3.90-5.40 Hemoglobin [...] % 40.4-72.8 Lymph % 22.0 % 17.0-46.1 [place] % 12.3 % 4.3-13.2 Eo% 3.3 % 0.0-6.6 Bas% 0.9 % 0.0-1.1 Neut# 5.68 K/uL 1.0-7.0 Lymph # 2.03 K/uL 0.8-3.4 [place] # 1.13 K/uL High 0.3-0.9 Eos # 0.30 K/uL 0.0-0.5 Baso # 0.08 K/uL 0.0-0.1 Basic Metabolic Panel 07/22/2014 [facility] Glucose 89 mg/dL 74-[address] [place], [place] [id number] [phone] BUN 17 mg/dL 7-18 Creatinine 0.9 mg/dL 0.6-1.3 Glom Filtration Rate, Estimate >60 mL/min >60 If >60 mL/min >60 96 BUN/Creat 18.8 ratio Sodium 140 mmol/L 136-145 Potassium 3.7 mmol/L 3.5-5.1 Chloride 106 mmol/L 98-107 Carbon Dioxide 30 mmol/L 21-32 Anion Gap 8 mEq/L 8-16 Calcium 8.8 mg/dL 8.5-10.1 Liver Function 07/22/2014 [facility] Total Protein 6.5 g/dL 6.4-8.[address] [place] [address] [phone] Albumin 3.7 g/dL 3.4-5.0 Globulin 2.8 g/dL [...] approximately 13% higher for people identified as -[place]ib[place]. 5 Relative blood cell counts (%) should be compared with absolute cell counts (cells/mcL). Relative counts may not be clinically meaningful if the absolute count of one or more cell type is decreased. Reference ranges for relative cell counts derived from: A Manual of Laboratory and Diagnostics Tests, 9th Ed, [employer] Dain & Ashley, 2015. Pediatric Reference Intervals, 7th Ed, [facility], 2011. 6 LDL-C is now calculated using the Raza-Park calculation, which is a validated novel method providing better accuracy than the Friedewald equation in the estimation of LDL-C. Raza SS et al.FARIBA.2013;310(50):0213-9415 Desirable range <100 mg/dL for primary prevention; <70 mg/dL for patients with CHD or diabetic patients with >or=2 CHD risk factors. For additional information, please refer to http://education.[employer].Easy Pairings/faq/WZH392(This link is being provided for informational/educational purposes only.) 7 WE RECEIVED YOUR HANDWRITTEN TEST ORDER. WE PERFORMED THE AMA DEFINED LIPID PANEL. IF THIS IS NOT WHAT YOU INTENDED TO ORDER, PLEASE CONTACT YOUR LOCAL FIXING CARPENTER IMMEDIATELY AT SO THAT WE CAN ADJUST OUR BILLING APPROPRIATELY. YOU MAY ALSO INQUIRE ABOUT ALTERNATIVE OR ADDITIONAL TESTING. 8 GLUCOSE REFERENCE RANGE BASED ON FASTING SPECIMEN. 9 The upper reference limit for Creatinine is approximately 13% higher for people identified as -[place]ib[place]. 10 Relative blood cell counts (%) should [...] 11 LDL-C is now calculated using the Woody calculation, which is a validated novel method providing better accuracy than the Friedewald equation in the estimation of LDL-C. Raza MADRID et al.FARIBA.2013;310(12):6086-9709 Desirable range <100 mg/dL for primary prevention; <70 mg/dL for patients with CHD or diabetic patients with >or=2 CHD risk factors. For additional information, please refer to http://education.[employer]/faq/GPK468(This link is being provided for informational/educational purposes [...] approximately 13% higher for people identified as -[place]ib[place]. 16 For the purpose of screening for the presence of diabetes: <5.7% Consistent with the absence of diabetes 5.7-6.4% Consistent with the increased risk of diabetes (prediabetes) >or=6.5% Consistent with diabetes This assay result is conistent with a decreased risk of diabetes. Currently, no consensus exists regarding use of hemoglobin A1C for diagnosis of diabetes in children. According to [place] Diabetes Association (ADA) guidelines, hemoglobin A1C <7.0% [...] the estimation of LDL-C. Raza SS et al.FARIBA.2013;310(19):9660-0288 (http://education.[employer].Easy Pairings/faq/UJK574) Desirable range <100 mg/dL for patients with [...] approximately 13% higher for people identified as -[place]ib[place]ian. 27 LDL-C is now calculated using the Raza-Nick calculation, which is a validated novel method providing better accuracy than the Friedewald equation in the estimation of LDL-C. Raza MADRID et al.FARIBA.2013;310(19):5757-2131 (http://education.[employer].Easy Pairings/faq/FNB530) Desirable range <100 mg/dL for patients with [...] approximately 13% higher for people identified as -[place]ib[place]. 32 REFERENCE RANGES BELOW ARE APPLICABLE TO FEMALES FIRST TRIMESTER - 0.26 - 2.66 mIU/L SECOND TRIMESTER - 0.55 - 2.73 mIU/L THIRD TRIMESTER - 0.43 - 2.91 mIU/L 33 GLUCOSE REFERENCE RANGE BASED ON FASTING SPECIMEN. 34 The upper reference limit for Creatinine is approximately 13% higher for people identified as -[place]ib[place]. 35 For the purpose of screening for the presence of diabetes: <5.7% Consistent with the absence of diabetes 5.7-6.4% Consistent with the increased risk of diabetes (prediabetes) >or=6.5% Consistent with diabetes This assay result is conistent with a decreased risk of diabetes. Currently, no consensus exists regarding use of hemoglobin A1C for diagnosis of diabetes in children. According to [place] Diabetes Association (ADA) guidelines, hemoglobin A1C <7.0% [...] Ashley, 2015. Pediatric Reference Intervals, 7th Ed, [facility], 2011. 37 VOMITING, DIARRHEA, GEN ILL 38 POSSIBLE UROGENITAL CONTAMINATION. 39 URINE, CLEAN CATCH 40 Method: Innovaci Hemoccult Card 41 NO ENTERIC PATHOGENS ISOLATED [...] may be found at [email or web address]. 52 11/15/16 0027: NEUT% previously reported as: 82.0 H % [...] 0.2 % Amended result called to: [] - 11/15/16 at 0027 53 Relative blood cell counts (%) should be compared with absolute cell counts (cells/mcL). Relative counts may not be clinically meaningful if the absolute count of one or more cell type is decreased. Reference ranges for relative cell counts derived from: A Manual of Laboratory and Diagnostics Tests, 9th Ed, [employer]ain [employer] Ashley, 2015. Pediatric Reference Intervals, 7th Ed, [facility], 2011. 54 GLUCOSE REFERENCE RANGE BASED ON FASTING SPECIMEN. 55 The upper reference limit for Creatinine is approximately 13% higher for people identified as -[place]ib[place]. 56 SYMPTOMATIC BRADYCARDIA 57 SOB 58 URINE, [...] approximately 13% higher for people identified as -[place]ib[place]. 72 Relative blood cell counts (%) should be compared with absolute cell counts (cells/mcL). Relative counts may not be clinically meaningful if the absolute count of one or more cell type is decreased. Reference ranges for relative cell counts derived from: A Manual of Laboratory and Diagnostics Tests, 9th Ed, [employer]ain & Ashley, 2015. Pediatric Reference Intervals, 7th Ed, [facility], 2011. 73 [id number] 74 >100 to <200 pg/mL: likely compensated [...] approximately 13% higher for people identified as -[place]ib[place]. 82 Relative blood cell counts (%) should [...] approximately 13% higher for people identified as -[place]ib[place]. 85 GLUCOSE REFERENCE RANGE BASED ON FASTING SPECIMEN. 86 The upper reference limit for Creatinine is approximately 13% higher for people identified as -[place]ib[place]. 87 GLUCOSE REFERENCE RANGE BASED ON FASTING SPECIMEN. 88 The upper reference limit for Creatinine is approximately 13% higher for people identified as -[place]ib[place]. 89 Vitamin D Status 25-OH Vitamin D: Deficiency: <20 ng/mL Insufficiency: 20-29 ng/mL Optimal: > or=30 ng/mL For 25-OH Vitamin D testing on patients on D2-supplementation and patients for whom quantitation of D2 and D3 fractions is required, the QuestAssureD 25-OH Vit D, (D2,D3),LC/MS/MS is recommended: Order code 52793 (patients >2 yrs). 90 REFERENCE RANGES BELOW ARE APPLICABLE TO FEMALES FIRST TRIMESTER - 0.26 - 2.66 mIU/L SECOND TRIMESTER - 0.55 - 2.73 mIU/L THIRD TRIMESTER - 0.43 - 2.91 mIU/L 91 GLUCOSE REFERENCE RANGE BASED ON FASTING SPECIMEN. 92 The upper reference limit for Creatinine is approximately 13% higher for people identified as -[place]ib[place]. 93 LDL-CHOLESTEROL RISK CATEGORY* GOAL VERY HIGH [...] [email or web address]. Procedures Date Code Description Status 02/20/2017 [id number] Bone Mineral Density Test Completed 02/20/2017 20550 Dxa Bone Density [employer] Vertebral Fracture Completed Assessment 02/20/2017 38823 PVR-Atrerial Study Completed 01/30/2017 54195 Non-Invcorrotid/Comp /Bilat Study Completed 11/01/2016 [id number] Mammogram Completed 03/11/2016 98002 Non-Invcorrotid/Comp /Bilat Study Completed 05/31/2015 97439 EKG-Tracing & Report Completed 02/28/2015 94988 EKG-Tracing & Report Completed 02/27/2015 64748 PVR-Atrerial Study Completed 02/23/2015 66424 Spirometry Graphic Record/Max Voluntary Vent Completed 02/23/2015 98915 EKG-Tracing & Report Completed 02/23/2015 53186 Bone Density Completed 11/28/2014 63727 Holter Monitor Office Completed 10/17/2006 [id number] Colonoscopy Completed 09/12/2006 07224 Doppler Colow Flow Velocity Completed 09/12/2006 63725 Doppler Cardiac Completed 09/12/2006 08096 ECHO-2DW/Wo M-Mode Completed Encounters Type Date Location Provider Dx Diagnosis Office Visit 05/19/2018 Main Office Go Barrios MD K59.00 Constipation, 8:15a unspecified B02.9 Zoster without complications E66.9 Obesity, [...] Office Visit 06/08/2015 2:30p Main Office Go Barrois MD E78.5 Hyperlipidemia, unspecified M81.0 Age-related osteoporosis [...] Office Visit 02/28/2015 9:45a Main Office Go aBrrios MD 427.31 Atrial Fibrillation 424.1 Aortic Valve Disorder GENERAL General Office Visit 12/05/2014 4:00p Main Office Go Barrios MD 496 Chronic Obstructive Pulmonary Disease 425.40 Cardiomyopathy 402.10 Hypertensive Heart Disease Benign W/O Heart Failure GENERAL General Office Visit 11/22/2014 1:00p Main Office MD Hamilton Clark6 Chronic Obstructive Pulmonary Disease 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 ANSARI REVIEWEDECHO PER DR ANSARI, WHO WILL ORDER NOT USING CPAPJ44.0 Chronic obstructive pulmonary disease with acute lower respiratory gmmmdxyiaZ17.33 Obstructive sleep apnea (adult) (pediatric)E78.5 Hyperlipidemia , unspecifiedComments:OJAOECQ15.00 Encounter for general adult medical examination without abnormal findingsAllComments:UA DONEREFER DERM FOR LESION RIGHT LATERAL LEGREFER [place] GASTRORU CARDIOLOGYRTO 3 MONTHSCARD1,HAIC,LIPIDS ,LFT,CKCBC BEFORE VISIT
--- OUTSIDE RECORDS SUMMARY | 2018-06-12 11:06 | XMS REPORT | Continuity of Care Document ---
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 Payers Type Date Identification Numbers Payment Provider Subscriber Policy Number: [id number] Medicare Eleanor Flowers PayID: [id number] [address] [place] [address] Policy Number: [id number] [employer] Eleanor Flowers PayID: [id number] [address] [address] [place] [address] Advance Directives Description No Information Available Problems [...] Fausto - 08/26 Nystatin 08/01 Hx Suspension [id number] 240ml 1 teaspoon t/ML four times a [...] Date Vaccine Reaction Lot # [id number] Given 04/10/2017 Influenza Virus (Afluria) [id number] Split Virus 3 Years Of Age And Older [address]96[address] Given 04/10/2017 Pneumovax Polyvalent Inj Im [id number] 72778 Given 04/10/2017 Pneumovax Polyvalent Inj Im Q2035 Given 05/24/2015 Influenza Virus (Afluria) Split Virus 3 Years Of Age And Older 39102 Given 03/02/2015 Pneumococcal Conjugate [id number] Vaccine 13 Valent For Intramuscular Use 60386 Given 12/23/2007 Tetanus,Diphtheria,Adut/Ado DONE THROUGH PREVIOUS l Pertussis PROVIFER 85781 Given 05/15/2007 Influenza Vaccine [id number] Vital Signs Date Vital Result Comment 05/19/2018 8:19am BP Systolic 130 mmHg BP [...] Lab Sodium 136 mmol/L 135-146 [address] [place] [address] [phone] Potassium 4.0 mmol/L 3.5-5.3 Chloride 99 mmol/L [...] 1.9-3.7 A/G Ratio 1.8 1.0-2.5 Egfr Non-Afr. Senegalese 60 ML/MIN/1.73M2 > Or=60 Egfr 69 ML/MIN/1.73M2 > Or=60 CBC W/ Diff & PLT 05/13/2018 [facility] WBC 9.0 thous/L 3.8-10.[address] [place] [address] [phone] RBC 4.58 mill/L 3.80-5.10 Hemoglobin 14.1 g/dL 11.7-15.5 Hematocrit 41.7 % 35.0-45.0 MCV 91.2 FL 80.0-100.0 MCH 30.8 pg 27.0-33.0 MCHC 33.8 g/dL 32.0-36.0 RDW 15.2 % High 11.0-15.0 Platelet Count 218 thous/L 140-400 MPV 9.0 FL 7.5-12.5 Neutrophils,Absolute 5570 cells/L [phone] Bands,Absolute PENDING Metamyelocytes,Absolute PENDING Myelocytes,Absolute PENDING Promyelocytes,Absolute [...] [facility] Cholesterol 184 mg/dL <199 6 [place], [place] [id number] [phone] HDL Cholesterol 100 mg/dL >50 Cholesterol/HDL Ratio 1.8 CALC <5.0 LDL Chol,Calculated 70 mg/dL 0-100 6 Triglycerides 61 mg/dL <150 7 Comp Metabolic Panel 01/14/2018 [facility] Sodium 137 mmol/L 135-146 6 [place], [place] [id number] [phone] Potassium 3.8 mmol/L 3.5-5.3 Chloride 100 mmol/L [...] 1.9-3.7 A/G Ratio 1.9 1.0-2.5 Egfr Non-Afr. Senegalese 59 ML/MIN/1.73M2 Low > Or=60 Egfr 68 ML/MIN/1.73M2 > Or=60 CBC W/ Diff & PLT 01/14/2018 [facility] WBC 7.1 thous/L 3.8-10.8 6 [place] [address] [phone] RBC 4.75 mill/L 3.80-5.10 Hemoglobin 14.5 g/dL 11.7-15.5 Hematocrit 42.9 % 35.0-45.0 MCV 90.3 FL 80.0-100.0 MCH 30.6 pg 27.0-33.0 MCHC 33.8 g/dL 32.0-36.0 RDW 15.4 % High 11.0-15.0 Platelet Count 247 thous/L 140-400 Platelet Sufficiency PENDING MPV 9.3 FL 7.5-12.5 Neutrophils,Absolute 3960 cells/L 6668-9913 Bands,Absolute PENDING Metamyelocytes,Absolute PENDING Myelocytes,Absolute PENDING Promyelocytes,Absolute [...] [facility] Cholesterol 196 mg/dL <[address] [place] [place] [address] [phone] HDL Cholesterol 98 mg/dL >50 Cholesterol/HDL Ratio 2.0 CALC <5.0 LDL Chol,Calculated 83 mg/dL 0-100 11 Triglycerides 66 mg/dL <150 Non-HDL Cholesterol 98 mg/dL <130 12 CBC W/ Diff & PLT 10/02/2017 [facility] WBC 7.8 thous/L 3.8-10.8 [address] [place], [place] [id number] [phone] RBC 4.69 mill/L 3.80-5.10 Hemoglobin 13.9 g/dL 11.7-15.5 Hematocrit 41.1 % 35.0-45.0 MCV 87.7 FL 80.0-100.0 MCH 29.6 pg 27.0-33.0 MCHC 33.8 g/dL 32.0-36.0 RDW 15.7 % High 11.0-15.0 Platelet Count 215 thous/L 140-400 Platelet Sufficiency PENDING MPV 9.9 FL 7.5-12.5 Neutrophils,Absolute 3660 cells/L 7869-2020 Bands,Absolute PENDING Metamyelocytes,Absolute PENDING Myelocytes,Absolute PENDING Promyelocytes,Absolute [...] [facility] Sodium 138 mmol/L 135-146 [address] [place] [address] [phone] Potassium 4.3 mmol/L 3.5-5.3 Chloride 103 mmol/L 98-110 Carbon Dioxide 27 mmol/L 20-31 Calcium 9.5 mg/dL 8.6-10.4 Glucose 84 mg/dL 65-99 14 Urea Nitrogen (BUN) 18 mg/dL 7-25 Creatinine 0.92 mg/dL High 0.60-0.88 15 BUN/Creatinine Ratio 19.9 6-22 Egfr Non-Afr. Senegalese 56 ML/MIN/1.73M2 Low > Or=60 Egfr 65 ML/MIN/1.73M2 > Or=60 Laboratory test 10/02/2017 [facility] Hemoglobin A1c 5.2 % 0-5.6 [address] [place] [address] [phone] Lipid Panel 10/02/2017 [facility] Cholesterol 185 mg/dL <[address] [place] [address] [phone] HDL Cholesterol 83 mg/dL >50 Cholesterol/HDL Ratio 2.2 CALC <5.0 LDL Chol,Calculated 88 mg/dL 0-100 17 Triglycerides 62 mg/dL <150 Non-HDL Cholesterol 102 mg/dL <130 18 Hepatic Function 10/02/2017 [facility] Alkaline Phosphatase 71 U/L 33- 130 [address] [place] [address] [phone] Ast 17 U/L 10-35 Alt 12 U/L 6-29 Bilirubin,Total 1.2 mg/dL 0.2-1.2 Bilirubin,Direct 0.2 mg/dL < Or=0.2 Protein,Total 6.5 g/dL 6.1-8.1 Albumin 4.2 g/dL 3.6-5.1 Globulin,Calculated 2.3 g/dL 1.9-3.7 A/G Ratio 1.8 1.0-2.5 Laboratory test 10/02/2017 [facility] Creatine 74 U/L 29-143 [address] Kinase,[place] [address] [phone] Urinalysis With 08/01/2017 [facility] Urine Color YELLOW Yellow [address] [place] [address] [phone] Urine Clarity CLEAR Clear Urine Glucose - Dipstick NEGATIVE mg/dL Negative Urine Bilirubin - Dipstick NEGATIVE Negative Urine Ketone NEGATIVE mg/dL Negative Urine Specific [place] 1.015 1.010-1.030 Urine Blood NEGATIVE Negative Urine [...] CAT <SEE NOTE> 21 Urine Culture 08/01/2017 [facility] Urine Culture MIXED URETHRAL F [address] <SEE NOTE> [place], [place] [id number] [phone] Quantity < 10,000 CFU/mL CBC W/ Diff & PLT 07/08/2017 [facility] WBC 7.6 thous/L 3.8-10.8 [address] [place] [address] [phone] RBC 4.67 mill/L 3.80-5.10 Hemoglobin 13.8 g/dL 11.7-15.5 Hematocrit 41.5 % 35.0-45.0 MCV 88.9 FL 80.0-100.0 MCH 29.5 pg 27.0-33.0 MCHC 33.2 g/dL 32.0-36.0 RDW 14.9 % 11.0-15.0 Platelet Count 214 thous/L 140-400 Platelet Sufficiency PENDING MPV 9.4 FL 7.5-12.5 Neutrophils,Absolute 4430 cells/L 1740-4967 Bands,Absolute PENDING Metamyelocytes,Absolute PENDING Myelocytes,Absolute PENDING Promyelocytes,Absolute [...] [facility] Sodium 138 mmol/L 135-[address] [place] [address] [phone] Potassium 4.0 mmol/L 3.5-5.3 Chloride 103 mmol/L [...] 1.9-3.7 A/G Ratio 1.8 1.0-2.5 Egfr Non-Afr. Senegalese 52 ML/MIN/1.73M2 Low > Or=60 Egfr 61 ML/MIN/1.73M2 > Or=60 Lipid Panel 07/08/2017 [facility] Cholesterol 187 mg/dL <199 [address] [place] [address] [phone] HDL Cholesterol 87 mg/dL >50 Cholesterol/HDL Ratio 2.1 CALC <5.0 LDL Chol,Calculated 83 mg/dL 0-100 27 Triglycerides 84 mg/dL <150 Non-HDL Cholesterol 101 mg/dL <130 28 Hepatic Function 07/08/2017 [facility] Alkaline Phosphatase 76 U/L 33- 130 Panel [address] [place] [address] [phone] Ast 15 U/L 10-35 Alt 9 U/L 6-29 Bilirubin,Total 0.8 mg/dL 0.2-1.2 Bilirubin,Direct 0.2 mg/dL < Or=0.2 Protein,Total 6.5 g/dL 6.1-8.1 Albumin 4.2 g/dL 3.6-5.1 Globulin,Calculated 2.3 g/dL 1.9-3.7 A/G Ratio 1.8 1.0-2.5 Laboratory test 07/08/2017 [facility] Creatine 94 U/L 29-143 [address] Kinase,Total [place] [id number] [phone] TSH & T4,Free 07/08/2017 [facility] TSH 2.91 0.40-4.50 [address] mIU/[place] [address] [phone] T4,Free 1.4 ng/dL 0.8-1.8 Basic Metabolic Panel 04/01/2017 [facility] Sodium 140 mmol/L 135-[address] [place] [address] [phone] Potassium 4.3 mmol/L 3.5-5.3 Chloride 107 mmol/L 98-110 Carbon Dioxide 23 mmol/L 20-31 Calcium 9.4 mg/dL 8.6-10.4 Glucose 86 mg/dL 65-99 30 Urea Nitrogen 23 mg/dL 7-25 Creatinine 1.22 mg/dL High 0.60-0.88 31 BUN/Creatinine Ratio 18.6 6-22 Egfr Non-Afr. Senegalese 40 ML/MIN/1.73M2 Low > Or=60 Egfr 47 ML/MIN/1.73M2 Low > Or=60 General Health Panel 02/20/2017 [facility] TSH 2.60 mIU/L 0.40-4.50 [address] [place], [place] [address] [phone] T4,Free 1.4 ng/dL 0.8-1.8 Comp Metabolic Panel 02/20/2017 [facility] Sodium 136 mmol/L 135-[address] [place] [address] [phone] Potassium 4.2 mmol/L 3.5-5.3 Chloride 100 mmol/L [...] 1.9-3.7 A/G Ratio 1.5 1.0-2.5 Egfr Non-Afr. Senegalese 24 ML/MIN/1.73M2 Low > Or=60 Egfr 28 ML/MIN/1.73M2 Low > Or=60 Laboratory test 02/20/2017 [facility] Creatine 59 U/L 29-143 finding [address] Kinase,[place] [address] [phone] Hemoglobin A1c 5.6 % 0-5.6 35 CBC W/ Diff & PLT 02/20/2017 [facility] WBC 10.5 thous/L 3.8-10.[address] [place] [address] [phone] RBC 4.32 mill/L 3.80-5.10 Hemoglobin 12.9 g/dL 11.7-15.5 Hematocrit 38.9 % 35.0-45.0 MCV 90.0 FL 80.0-100.0 MCH 29.9 pg 27.0-33.0 MCHC 33.3 g/dL 32.0-36.0 RDW 14.7 % 11.0-15.0 Platelet Count 246 thous/L 140-400 Platelet Sufficiency PENDING MPV 9.4 FL 7.5-12.5 Neutrophils,Absolute 7220 cells/L 9670-9738 Bands,Absolute PENDING Metamyelocytes,Absolute PENDING Myelocytes,Absolute PENDING Promyelocytes,Absolute [...] Phosphatase 96 U/L 33- [address] [place] [address] [phone] Ast 12 U/L 10-35 Alt 6 U/L 6-29 Bilirubin,Total 1.1 mg/dL 0.2-1.2 Bilirubin,Direct 0.2 mg/dL < Or=0.2 Protein,Total 6.4 g/dL 6.1-8.1 Albumin 3.9 g/dL 3.6-5.1 Globulin,Calculated 2.5 g/dL 1.9-3.7 A/G Ratio 1.5 1.0-2.5 Laboratory test 02/20/2017 [facility] Cholesterol 167 mg/dL 125-200 finding [address] [place] [address] [phone] Urinalysis With 11/15/2016 [facility] Urine Color YELLOW Yellow [address] [place] [address] [phone] Urine Clarity CLEAR Clear Urine Glucose - Dipstick NEGATIVE mg/dL Negative Urine Bilirubin - Dipstick NEGATIVE Negative Urine Ketone NEGATIVE mg/dL Negative Urine Specific [place] 1.010 1.010-1.030 Urine Blood NEGATIVE Negative Urine [...] CAT <SEE NOTE> 39 Laboratory test 11/15/2016 [facility] Occult NEGATIVE Negative [address] Blood,Stool [place] [id number] [phone] Smear For WBC'S 11/15/2016 [facility] Smear For WBC'S VERY FEW [address] [place] [id number] [phone] Smear Source: STOOL Specimen Source: STOOL Stool Culture 11/15/2016 [facility] Stool Culture NO ENTERIC PATHO [address] <SEE NOTE> [place] [address] [phone] . ................ <SEE NOTE> 42 Note: INCLUDES TESTING <SEE NOTE> 43 . PLESIOMONAS, CAM <SEE NOTE> 44 . ................ <SEE NOTE> 45 . YERSINIA AND VIB <SEE NOTE> 46 . SHOULD BE REQUES <SEE NOTE> 47 Shiga Toxin 1 Antigen Test not perform <SEE NOTE> 48 Shiga Toxin 2 Antigen Test not perform <SEE NOTE> 49 C. Difficile 11/15/2016 [facility] C. Difficile NEGATIVE FOR 50 Toxin A/B [address] Toxin A/B C. <SEE NOTE> [place] [id number] [phone] Differential-WBC 11/14/2016 [facility] Total Cells 100 #CELLS Confirm [address] Counted [place] [id number] [phone] Band% 6 % 0-8 Neutrophils% 80 % High 33-73 Lymph% 8 % Low 20-42 Monocyte% 4 % 0-10 Basophil% 2 % 0-2 Platelet Estimate NORMAL Anisocytosis 1+ Differential Comment LRG PLTS SEEN Comprehensive 11/14/2016 [facility] Glucose 119 mg/ dL High 74-106 Metabolic Panel [address] [place] [phone] BUN 29 mg/dL High 7-18 Creatinine 1.3 [...] Phosphatase 95 U/L 45-117 Laboratory test 11/14/2016 [facility] Lipase 238 U/L 73-[address] [place] [address] [phone] Slide Review 11/14/2016 [facility] Slide DIFF ORDERED [address] [place] [address] [phone] CBS W/Automated 11/14/2016 [facility] White Blood 18.0 K/uL High 3.1-10.[address] [place] [address] [phone] Red Blood Count 4.55 M/uL 3.90-5.40 Hemoglobin [...] 1.8-7.0 Lymph # 0.83 K/uL Low 1.0-4.0 Winston # 2.31 K/uL High 0.3-0.9 Eos # 0.07 K/uL 0.0-0.5 Baso # 0.04 K/uL 0.0-0.1 CBC W/ Diff & PLT 10/28/2016 [facility] WBC 8.1 thous/L 3.8-10.8 [address] [place] [address] [phone] RBC 4.51 mill/L 3.80-5.10 Hemoglobin 13.2 g/dL 11.7-15.5 Hematocrit 40.4 % 35.0-45.0 MCV 89.6 FL 80.0-100.0 MCH 29.2 pg 27.0-33.0 MCHC 32.6 g/dL 32.0-36.0 RDW 14.9 % 11.0-15.0 Platelet Count 226 thous/L 140-400 Platelet Sufficiency PENDING MPV 9.5 FL 7.5-12.5 Neutrophils,Absolute 4890 cells/L 2070-5487 Bands,Absolute PENDING Metamyelocytes,Absolute PENDING Myelocytes,Absolute PENDING Promyelocytes,Absolute [...] [facility] Sodium 139 mmol/L 135-146 [address] [place] [address] [phone] Potassium 4.0 mmol/L 3.5-5.3 Chloride 104 mmol/L 98-110 Carbon Dioxide 28 mmol/L 20-31 Calcium 9.4 mg/dL 8.6-10.4 Glucose 83 mg/dL 65-99 54 Urea Nitrogen 27 mg/dL High 7-25 Creatinine 1.03 mg/dL High 0.60-0.88 55 BUN/Creatinine Ratio 26.2 High 6-22 Egfr Non-Afr. Senegalese 50 ML/MIN/1.73M2 Low > Or=60 Egfr 57 ML/MIN/1.73M2 Low > Or=60 Laboratory test 08/14/2016 [facility] Digoxin 1.3 ng/ mL 0.8-2.0 [address] [place], [place] [id number] [phone] Ua RFX Micro & 08/13/2016 [facility] Urine Color YELLOW Yellow 57 Culture II [address] [place] [address] [phone] Urine Clarity CLEAR Clear Urine Glucose - Dipstick NEGATIVE mg/dL Negative Urine Bilirubin - Dipstick NEGATIVE Negative Urine Ketone NEGATIVE mg/dL Negative Urine Specific [place] 1.010 1.010-1.030 Urine Blood NEGATIVE Negative Urine PH 7.0 6.5-7.5 Urine Protein - Dipstick NEGATIVE mg/dL Negative Urine Urobilinogen - Dipstick 0.2 E.U./dL 0.2-1.0 Urine Nitrite - Dipstick NEGATIVE Negative Urine Leuk Esterase NEGATIVE Negative Source: URINE, CLEAN CAT <SEE NOTE> 58 Blood Culture 08/13/2016 [facility] Blood Culture NO GROWTH: 59, [address] Aerobic FINAL <[place] [address] NOTE> [phone] Blood Culture Anaerobic NO GROWTH: FINAL <SEE NOTE> 61 Blood Culture 08/13/2016 [facility] Blood Culture NO GROWTH: [address] Aerobic FINAL <[place] [address] NOTE> [phone] Blood Culture Anaerobic NO GROWTH: FINAL <SEE NOTE> 63 Aot Request 08/13/2016 [facility] Aot Request Test(s ) added 64, [address] [place], [place] [id number] [phone] Tests to be added: dIGOXIN LEVEL Laboratory 08/13/2016 [facility] NT-proBNP 1082.0 High <450 test finding [address] pg/[place] [address] [phone] Laboratory 07/09/2016 [facility] Hemoglobin A1c 5.7 % High 0.0-5.6 66, test finding [address] [place], [place] [address] [phone] Lipid Panel 07/09/2016 [facility] Cholesterol 212 mg/dL High 125-[address] [place], [place] [address] [phone] HDL Cholesterol 108 mg/dL > Or=46 Cholesterol/HDL Ratio 2.0 < Or=5.0 LDL Chol,Calculated 91 mg/dL <130 68 Triglycerides 67 mg/dL <150 Non-HDL Cholesterol 104 mg/dL 69 Basic Metabolic Panel 07/09/2016 [facility] Sodium 134 mmol/L Low 135-[address] [place] [address] [phone] Potassium 4.4 mmol/L 3.5-5.3 Chloride 99 mmol/L 98-110 Carbon Dioxide 26 mmol/L 20-31 Calcium 9.5 mg/dL 8.6-10.4 Glucose 80 mg/dL 65-99 70 Urea Nitrogen 23 mg/dL 7-25 Creatinine 1.20 mg/dL High 0.60-0.88 71 BUN/Creatinine Ratio 18.8 6-22 Egfr Non-Afr. Senegalese 41 ML/MIN/1.73M2 Low > Or=60 Egfr 48 ML/MIN/1.73M2 Low > Or=60 Hepatic Function 07/09/2016 [facility] Alkaline Phosphatase 75 U/L 33- 130 [address] [place], [place] [id number] [phone] Ast 26 U/L 10-35 Alt 23 U/L 6-29 Bilirubin,Total 1.3 mg/dL High 0.2-1.2 Bilirubin,Direct 0.2 mg/dL < Or=0.2 Protein,Total 6.6 g/dL 6.1-8.1 Albumin 4.3 g/dL 3.6-5.1 Globulin,Calculated 2.3 g/dL 1.9-3.7 A/G Ratio 1.8 1.0-2.5 Laboratory test 07/09/2016 [facility] Creatine 101 U/L 29-143 finding [address] Kinase,[place] [address] [phone] CBC W/ Diff & 07/09/2016 [facility] WBC 6.7 3.8-10.8 PLT [address] thous/ [place] [address] [phone] RBC 4.61 mill/L 3.80-5.10 Hemoglobin 13.4 g/dL 11.7-15.5 Hematocrit 40.9 % 35.0-45.0 MCV 88.9 FL 80.0-100.0 MCH 29.1 pg 27.0-33.0 MCHC 32.8 g/dL 32.0-36.0 RDW 16.1 % High 11.0-15.0 Platelet Count 217 thous/L 140-400 Platelet Sufficiency PENDING MPV 9.6 FL 7.5-11.5 Neutrophils,Absolute 4360 cells/L 1389-6656 Bands,Absolute PENDING Metamyelocytes,Absolute PENDING Myelocytes,Absolute PENDING Promyelocytes,Absolute [...] Stippling PENDING Comment PENDING Laboratory test 03/17/2016 [facility] B Type 242 pg/mL High 73, [address] [place] [address] Peptide [phone] CBC Auto Diff 03/17/2016 [facility] White Blood 8.6 3.5- [address] Count 10^3/uL 10.8 [place] [address] [phone] Red Blood Count 4.49 10^6/uL 4.0-5.4 Hemoglobin [...] Cells % 0.2 Comp Metabolic Panel 03/17/2016 [facility] Sodium 139 mmol/L [phone] [place] [address] [phone] Potassium 4.5 mmol/L 3.5-5.0 Chloride 105 mmol/L [...] Alkaline 70 U/L 33-130 [address] Phosphatase [place], [place] [address] [phone] Ast 16 U/L 10-35 Alt 13 U/L 6-29 Bilirubin,Total 1.6 mg/dL High 0.2-1.2 Bilirubin,Direct 0.3 mg/dL High < Or=0.2 Protein,Total 6.5 g/dL 6.1-8.1 Albumin 4.3 g/dL 3.6-5.1 Globulin,Calculated 2.2 g/dL 1.9-3.7 A/G Ratio 2.0 1.0-2.5 Lipid Panel 03/12/2016 [facility] Cholesterol 166 mg/dL 125-[address] [place] [address] [phone] HDL Cholesterol 68 mg/dL > Or=46 Cholesterol/HDL Ratio 2.4 < Or=5.0 LDL Chol,Calculated 78 mg/dL <130 77 Triglycerides 98 mg/dL <150 Non-HDL Cholesterol 98 mg/dL 78 General Health Panel 03/12/2016 [facility] TSH 1.99 mIU/L 0.40-4.[address] [place] [address] [phone] T4,Free 1.3 ng/dL 0.8-1.8 CMP W/O Egfr 03/12/2016 [facility] Sodium 139 mmol/L 135-[address] [place] [address] [phone] Potassium 4.2 mmol/L 3.5-5.3 Chloride 104 mmol/L [...] [facility] WBC 8.5 thous/L 3.8-10.[address] [place] [address] [phone] RBC 4.57 mill/L 3.80-5.10 Hemoglobin 13.8 g/dL 11.7-15.5 Hematocrit 41.3 % 35.0-45.0 MCV 90.3 FL 80.0-100.0 MCH 30.3 pg 27.0-33.0 MCHC 33.5 g/dL 32.0-36.0 RDW 15.2 % High 11.0-15.0 Platelet Count 214 thous/L 140-400 Platelet Sufficiency PENDING MPV 10.3 FL 7.5-11.5 Neutrophils,Absolute 5390 cells/L 7766-0668 Bands,Absolute PENDING Metamyelocytes,Absolute PENDING Myelocytes,Absolute PENDING Promyelocytes,Absolute [...] [facility] Sodium 139 mmol/L 135-[address] [place] [address] [phone] Potassium 4.3 mmol/L 3.5-5.3 Chloride 104 mmol/L 98-110 Carbon Dioxide 25 mmol/L 19-30 Calcium 9.4 mg/dL 8.6-10.4 Glucose 89 mg/dL 65-99 83 Urea Nitrogen 23 mg/dL 7-25 Creatinine 0.92 mg/dL High 0.60-0.88 84 BUN/Creatinine Ratio 25.1 High 6-22 BMP W/O Egfr 09/04/2015 [facility] Sodium 140 mmol/L 135-[address] [place] [address] [phone] Potassium 4.3 mmol/L 3.5-5.3 Chloride 104 mmol/L 98-110 Carbon Dioxide 27 mmol/L 19-30 Calcium 9.5 mg/dL 8.6-10.4 Glucose 91 mg/dL 65-99 85 Urea Nitrogen 21 mg/dL 7-25 Creatinine 0.76 mg/dL 0.60-0.88 86 BUN/Creatinine Ratio 27.6 High 6-22 BMP W/O Egfr 05/31/2015 [facility] Sodium 137 mmol/L 135-[address] [place] [address] [phone] Potassium 4.2 mmol/L 3.5-5.3 Chloride 103 mmol/L 98-110 Carbon Dioxide 25 mmol/L 19-30 Calcium 9.4 mg/dL 8.6-10.4 Glucose 89 mg/dL 65-99 87 Urea Nitrogen 19 mg/dL 7-25 Creatinine 0.70 mg/dL 0.60-0.88 88 BUN/Creatinine Ratio 27.0 High 6-22 Hepatic Function 02/23/2015 [facility] Alkaline Phosphatase 93 U/L 33- 130 Panel [address] [place] [address] [phone] Ast 17 U/L 10-35 Alt 12 U/L 6-29 Bilirubin,Total 1.0 mg/dL 0.2-1.2 Bilirubin,Direct 0.2 mg/dL < Or=0.2 Protein,Total 6.8 g/dL 6.1-8.1 Albumin 4.3 g/dL 3.6-5.1 Globulin,Calculated 2.5 g/dL 1.9-3.7 A/G Ratio 1.7 1.0-2.5 Laboratory 02/23/2015 [facility] Vitamin 26 Low 30-100 [address] D,25-Hydroxy,Total,Immunoassay NG/[place] [address] [phone] General 02/23/2015 [facility] TSH 2.50 0.40-4. 90 Health [address] mIU/L 50 [place] [address] [phone] T4,Free 1.3 ng/dL 0.8-1.8 CMP W/O Egfr 02/23/2015 [facility] Sodium 136 mmol/L 135-[address] [place] [id number] [phone] Potassium 4.1 mmol/L 3.5-5.3 Chloride 103 mmol/L [...] [facility] WBC 9.4 thous/L 3.8-10.[address] [place] [id number] [phone] RBC 4.82 mill/L 3.80-5.10 Hemoglobin 14.4 g/dL 11.7-15.5 Hematocrit 44.3 % 35.0-45.0 MCV 91.9 FL 80.0-100.0 MCH 29.8 pg 27.0-33.0 MCHC 32.4 g/dL 32.0-36.0 RDW 15.4 % High 11.0-15.0 Platelet Count 235 thous/L 140-400 Platelet Sufficiency PENDING MPV 10.1 FL 7.5-11.5 Neutrophils,Absolute 6330 cells/L 1130-1687 Bands,Absolute PENDING Metamyelocytes,Absolute PENDING Myelocytes,Absolute PENDING Promyelocytes,Absolute [...] Lab Cholesterol 202 mg/dL High 125-200 6 [place] [address] [phone] HDL Cholesterol 85 mg/dL > Or=46 Cholesterol/HDL Ratio 2.4 < Or=5.0 LDL Chol,Calculated 98 mg/dL <130 93 Triglycerides 96 mg/dL <150 Non-HDL Cholesterol 117 mg/dL 94 CBC W/ Diff & PLT 11/23/2014 [facility] WBC 7.2 thous/L 3.8-10.8 6 [place] [address] [phone] RBC 4.57 mill/L 3.80-5.10 Hemoglobin 13.6 g/dL 11.7-15.5 Hematocrit 41.3 % 35.0-45.0 MCV 90.3 FL 80.0-100.0 MCH 29.6 pg 27.0-33.0 MCHC 32.8 g/dL 32.0-36.0 RDW 14.6 % 11.0-15.0 Platelet Count 232 thous/L 140-400 Platelet Sufficiency PENDING Neutrophils,Absolute 4370 cells/L 2162-5535 Bands,Absolute PENDING Metamyelocytes,Absolute PENDING Myelocytes,Absolute PENDING Promyelocytes,Absolute [...] PENDING Comment PENDING Basic Metabolic Panel 11/15/2014 [facility] Glucose 97 mg/dL 74-[address] [place], [place] [id number] [phone] BUN 14 mg/dL 7-18 Creatinine 0.7 mg/dL 0.6-1.3 Glom Filtration Rate, Estimate >60 mL/min >60 If >60 mL/min >60 95 BUN/Creat 20.0 ratio Sodium 139 mmol/L 136-145 Potassium 3.9 mmol/L 3.5-5.1 Chloride 103 mmol/L 98-107 Carbon Dioxide 26 mmol/L 21-32 Anion Gap 10 mEq/L 8-16 Calcium 9.1 mg/dL 8.5-10.1 CBC W/ Diff & 07/22/2014 [facility] White Blood 9.2 K /uL 3.1-10.[address] [place] [address] [phone] Red Blood Count 4.52 M/uL 3.90-5.40 Hemoglobin [...] % 40.4-72.8 Lymph % 22.0 % 17.0-46.1 Winston % 12.3 % 4.3-13.2 Eo% 3.3 % 0.0-6.6 Bas% 0.9 % 0.0-1.1 Neut# 5.68 K/uL 1.0-7.0 Lymph # 2.03 K/uL 0.8-3.4 Winston # 1.13 K/uL High 0.3-0.9 Eos # 0.30 K/uL 0.0-0.5 Baso # 0.08 K/uL 0.0-0.1 Basic Metabolic Panel 07/22/2014 [facility] Glucose 89 mg/dL 74-[address] [place] [address] [phone] BUN 17 mg/dL 7-18 Creatinine 0.9 mg/dL 0.6-1.3 Glom Filtration Rate, Estimate >60 mL/min >60 If >60 mL/min >60 96 BUN/Creat 18.8 ratio Sodium 140 mmol/L 136-145 Potassium 3.7 mmol/L 3.5-5.1 Chloride 106 mmol/L 98-107 Carbon Dioxide 30 mmol/L 21-32 Anion Gap 8 mEq/L 8-16 Calcium 8.8 mg/dL 8.5-10.1 Liver Function 07/22/2014 [facility] Total Protein 6.5 g/dL 6.4-8.[address] [place] [address] [phone] Albumin 3.7 g/dL 3.4-5.0 Globulin 2.8 g/dL [...] approximately 13% higher for people identified as -[place]. 5 Relative blood cell counts (%) should be compared with absolute cell counts (cells/mcL). Relative counts may not be clinically meaningful if the absolute count of one or more cell type is decreased. Reference ranges for relative cell counts derived from: A Manual of Laboratory and Diagnostics Tests, 9th Ed, [employer], 2015. Pediatric Reference Intervals, 7th Ed, [employer], 2011. 6 LDL-C is now calculated using the Raza-Nick calculation, which is a validated novel method providing better accuracy than the Friedewald equation in the estimation of LDL-C. Raza MADRID et al.FARIBA.2013;310(19):7150-6378 Desirable range <100 mg/dL for primary prevention; <70 mg/dL for patients with CHD or diabetic patients with >or=2 CHD risk factors. For additional information, please refer to http://education.[employer]/faq/BIF479(This link is being provided for informational/educational purposes only.) 7 WE RECEIVED YOUR HANDWRITTEN TEST ORDER. WE PERFORMED THE AMA DEFINED LIPID PANEL. IF THIS IS NOT WHAT YOU INTENDED TO ORDER, PLEASE CONTACT YOUR LOCAL [employer] SALESPERSON IMMEDIATELY AT SO THAT WE CAN ADJUST OUR BILLING APPROPRIATELY. YOU MAY ALSO INQUIRE ABOUT ALTERNATIVE OR ADDITIONAL TESTING. 8 GLUCOSE REFERENCE RANGE BASED ON FASTING SPECIMEN. 9 The upper reference limit for Creatinine is approximately 13% higher for people identified as -Sen[place]alese. 10 Relative blood cell counts (%) should [...] the estimation of LDL-C. Raza MADRID et al.FARIBA.2013;310(19):1163-5309 Desirable range <100 mg/dL for primary prevention; <70 mg/dL for patients with CHD or diabetic patients with >or=2 CHD risk factors. For additional information, please refer to http://education.[employer]/faq/OJJ420(This link is being provided for informational/educational purposes [...] Ashley, 2015. Pediatric Reference Intervals, 7th Ed, [facility] Press, 2011. 14 GLUCOSE REFERENCE RANGE BASED ON FASTING SPECIMEN. 15 The upper reference limit for Creatinine is approximately 13% higher for people identified as -Sen[place]alese. 16 For the purpose of screening for the presence of diabetes: <5.7% Consistent with the absence of diabetes 5.7-6.4% Consistent with the increased risk of diabetes (prediabetes) >or=6.5% Consistent with diabetes This assay result is conistent with a decreased risk of diabetes. Currently, no consensus exists regarding use of hemoglobin A1C for diagnosis of diabetes in children. According to [place] Diabetes Association (ADA) guidelines, hemoglobin A1C <7.0% [...] 17 LDL-C is now calculated using the Woody calculation, which is a validated novel method providing better accuracy than the Friedewald equation in the estimation of LDL-C. Raza SS et al.FARIBA.2013;310(19):4097-5365 (http://education.[employer].Blog Talk [employer]/faq/CWT631) Desirable range <100 mg/dL for patients with [...] Ashley, 2015. Pediatric Reference Intervals, 7th Ed, [facility] Press, 2011. 25 GLUCOSE REFERENCE RANGE BASED ON FASTING SPECIMEN. 26 The upper reference limit for Creatinine is approximately 13% higher for people identified as -Senegalese. 27 LDL-C is now calculated using the Raza-Nick calculation, which is a validated novel method providing better accuracy than the Friedewald equation in the estimation of LDL-C. Raza SS et al.FARIBA.2013;310(19):3684-6970 (http://education.[employer].Blog Talk [employer]/faq/JUD925) Desirable range <100 mg/dL for patients with [...] approximately 13% higher for people identified as -Senegalese. 32 REFERENCE RANGES BELOW ARE APPLICABLE TO FEMALES FIRST TRIMESTER - 0.26 - 2.66 mIU/L SECOND TRIMESTER - 0.55 - 2.73 mIU/L THIRD TRIMESTER - 0.43 - 2.91 mIU/L 33 GLUCOSE REFERENCE RANGE BASED ON FASTING SPECIMEN. 34 The upper reference limit for Creatinine is approximately 13% higher for people identified as -Sen[place]alese. 35 For the purpose of screening for the presence of diabetes: <5.7% Consistent with the absence of diabetes 5.7-6.4% Consistent with the increased risk of diabetes (prediabetes) >or=6.5% Consistent with diabetes This assay result is conistent with a decreased risk of diabetes. Currently, no consensus exists regarding use of hemoglobin A1C for diagnosis of diabetes in children. According to [place] Diabetes Association (ADA) guidelines, hemoglobin A1C <7.0% [...] Ashley, 2015. Pediatric Reference Intervals, 7th Ed, [facility] Press, 2011. 37 VOMITING, DIARRHEA, GEN ILL 38 POSSIBLE UROGENITAL CONTAMINATION. 39 URINE, CLEAN CATCH 40 Method: Reema Blanca Hemoccult Card 41 NO ENTERIC PATHOGENS ISOLATED [...] H % Amended result called to: [] - 11/15/16 at 0027 11/15/16 0027: LYMPH % previously reported as: 4.6 L % Amended result called to: [] 11/15/16 at 0027 11/15/16 0027: MONO % previously reported as: 12.8 % Amended result called to: [] - 11/15/16 at 0027 11/15/16 0027: EO% previously reported as: 0.4 % [...] Ashley, 2015. Pediatric Reference Intervals, 7th Ed, [facility] Press, 2011. 54 GLUCOSE REFERENCE RANGE BASED ON FASTING SPECIMEN. 55 The upper reference limit for Creatinine is approximately 13% higher for people identified as -Senegalese. 56 SYMPTOMATIC BRADYCARDIA 57 SOB 58 URINE, [...] approximately 13% higher for people identified as -Senegalese. 72 Relative blood cell counts (%) should be compared with absolute cell counts (cells/mcL). Relative counts may not be clinically meaningful if the absolute count of one or more cell type is decreased. Reference ranges for relative cell counts derived from: A Manual of Laboratory and Diagnostics Tests, 9th Ed, [employer] Ashley, 2015. Pediatric Reference Intervals, 7th Ed, [employer] Press, 2011. 73 [id number] >100 to <200 pg/mL: likely compensated [...] approximately 13% higher for people identified as -Sen[place]alese. 82 Relative blood cell counts (%) should be compared with absolute cell counts (cells/mcL). Relative counts may not be clinically meaningful if the absolute count of one or more cell type is decreased. Reference ranges for relative cell counts derived from: A Manual of Laboratory and Diagnostics Tests, 9th Ed, [employer] Ashley, 2015. Pediatric Reference Intervals, 7th Ed, [facility] Press, 2011. 83 GLUCOSE REFERENCE RANGE BASED ON FASTING SPECIMEN. 84 The upper reference limit for Creatinine is approximately 13% higher for people identified as -Senegalese. 85 GLUCOSE REFERENCE RANGE BASED ON FASTING SPECIMEN. 86 The upper reference limit for Creatinine is approximately 13% higher for people identified as -Senegalese. 87 GLUCOSE REFERENCE RANGE BASED ON FASTING SPECIMEN. 88 The upper reference limit for Creatinine is approximately 13% higher for people identified as -Senegalese. 89 Vitamin D Status 25-OH Vitamin D: Deficiency: <20 ng/mL Insufficiency: 20-29 ng/mL Optimal: > or=30 ng/mL For 25-OH Vitamin D testing on patients on D2-supplementation and patients for whom quantitation of D2 and D3 fractions is required, the QuestAssureD 25-OH Vit D, (D2,D3),LC/MS/MS is recommended: Order code 62399 (patients >2 yrs). 90 REFERENCE RANGES BELOW ARE APPLICABLE TO FEMALES FIRST TRIMESTER - 0.26 - 2.66 mIU/L SECOND TRIMESTER - 0.55 - 2.73 mIU/L THIRD TRIMESTER - 0.43 - 2.91 mIU/L 91 GLUCOSE REFERENCE RANGE BASED ON FASTING SPECIMEN. 92 The upper reference limit for Creatinine is approximately 13% higher for people identified as -Sen[place]alese. 93 LDL-CHOLESTEROL RISK CATEGORY* GOAL VERY HIGH [...] [email or web address]. Procedures Date Code Description Status 02/20/2017 [id number] Bone Mineral Density Test Completed 02/20/2017 97983 Dxa Bone Density Axial [employer] Vertebral Fracture Completed Assessment 02/20/2017 21426 PVR-Atrerial Study Completed 01/30/2017 99733 Non-Invcorrotid/Comp /Bilat Study Completed 11/01/2016 [id number] Mammogram Completed 03/11/2016 15597 Non-Invcorrotid/Comp /Bilat Study Completed 05/31/2015 38679 EKG-Tracing & Report Completed 02/28/2015 00284 EKG-Tracing & Report Completed 02/27/2015 03794 PVR-Atrerial Study Completed 02/23/2015 49987 Spirometry Graphic Record/Max Voluntary Vent Completed 02/23/2015 74197 EKG-Tracing & Report Completed 02/23/2015 59668 Bone Density Completed 11/28/2014 27153 Holter Monitor Office Completed 10/17/2006 [id number] Colonoscopy Completed 09/12/2006 37306 Doppler Colow Flow Velocity Completed 09/12/2006 37165 Doppler Cardiac Completed 09/12/2006 21909 ECHO-2DW/Wo M-Mode Completed Encounters Type Date Location [...] failure Office Visit 08/05/2017 11:50a Main Office Kameorn Lambert, [id number] MD Sita unspecified, subsequent encounter T88.7xxA Unsp adverse effect [...] Office Visit 11/14/2016 2:00p Main Office Adore Lambert J01.90 Acute sinusitis, M.D. unspecified Office Visit [...] Abnormal GENERAL General Plan of Treatment Future Appointment(s):05/20/2018 2:45 pm - Go Barrios MD at Main [id number] - Go Barrios MDK59.00 Constipation, xmkcbewbriyO34.9 Zoster without aqygnwtuedgdzV69.9 Obesity, vaeivficgsgV43.9 Hypertensive heart disease without heart failureAllNew Medication:Famciclovir 500 mg - 1 by mouth three times a dayLactulose 20 GM/30ML - 30 milliliters by mouth three times a day as needed constipationComments:for above dx:-FAMVIR FOR POSSIBLE SHINGLES, ATYPICAL , LESION RIGHT NECK-LACTULOSE 30ML TID UNTIL BM-CONT MIRALAX(BOWELS DID N=MOVE YESTERDAY AND TODAY), CONSTIPATION LIKELY DUE TO NARCOTIC PAIN MED, WHICH SHE HAS DCRTO THIS WEEK CPE W LABS SCHEDULED
--- OUTSIDE RECORDS SUMMARY | 2018-06-12 11:06 | XMS REPORT | Continuity of Care Document ---
:1930 External Reference #:[id number] [facility] Care Team Providers Name Role Phone Go Barrios MD Care Team Information Stoker [employer] Unavailable Payers Type Date Identification Numbers Payment Provider Subscriber Policy Number: [id number] Medicare Eleanor Flowers PayID: [id number] [address] [place] [address] Policy Number: [id number] Excell Eleanor Flowers PayID: [id number] [address] [place] [address] Advance Directives Description No Information Available Problems [...] Form Strength Qnty SIG Indications Ordering Provider Shingrix 10/09 Active Suspension 50mcg 2dose 1 dose Rec s intramuscular MD Denis then repeat in 4 month Spiriva 10/09 Active Aerosol 1.25mcg/A 3mont [address] hs every day MD Lakeisha Barrios 08/01 Active Tablets 5mg 60tab twice a day s Ring, Proair HFA 04/10 Active Aerosol 108(90Bas 8.500 2 puffs 4 x e) gm daily Ring, mcg/Act Furosemide 04/10 Active Tablets 40mg 30tab 1 tablet with s weight gain Ring, of 2-3 lbs Amlodipine 03/10 Active Tablets 10mg 30tab 1 by mouth Elyn Besylate /2016 s every day Ring, Famotidine 03/10 Active Tablets 20mg 30tab 1 by mouth Elyn s every day Ring, Polyethylene 05/30 Active Packet 3350NF 90uni 1 packet Elyn Glycol 335 ts every day Ring, Triamcinolone Active Cream 0.1% apply as Elyn Acetonide /0000 needed Ring, Ondansetron 08/26 Hx Tablets 4mg 30tab 1 by mouth HCL /2017 s every 4 hours Ring, - as needed 10/09 nausea when taking zithromax Prednisone 08/05 Hx Tablets 20mg 8tabs 2 by mouth J44.0 Kameron F. /2017 every day MD Fausto - 08/26 Nystatin 08/01 Hx Suspension 877990Ctj 240ml 1 teaspoon t/ML four times a [...] 1 Q Month Drink Large Ring, - Galss Of 12/18 Water Med DO Not Lie Down For AT Least 1/2 Hour After Taking Med Magnesium 04/29 Hx Capsules 400mg 90cap 1 by mouth Elyn Oxide s every day Ring, - 12/18 Vitamin D 04/29 Hx Tablets 1000Unit 90tab 1 by mouth Elyn /2013 s every day Ring, - 12/18 Amlodipine Hx Capsules 10-40mg 90cap 1 by mouth Elyn Besylate/Benaz /0000 s every day Ring, epril HCL - 03/10 Metoprolol Hx Tablets ER 100mg 90tab 1 by mouth Elyn Succinate ER /0000 24HR s every day Ring, - 05/30 Spiriva Hx Capsules 18mcg 14cap one puff Elyn Handihaler /0000 s every day Ring, - 10/09 Symbicort 00 Hx Aerosol 80-4.5mcg 3unit 1 puff twice [...] a day Ring, - 08/01 Klor-Con M20 00/ Hx Tablets ER 20Meq 1 every day Davidenko /0000 as needed ,Ulises - when taking 03/10 the Amiodarone HCL Hx Tablets 200mg once daily Unknown / - 07/16 Lasix 00 Hx Tablets 40mg 1 tab po bid Unknown /0000 - 03/10 Digox Hx Tablets 125mcg Unknown /0000 - 08/26 Magnesium 0000 Hx Capsules 400mg daily Unknown Oxide -MG / Supplement - 03/10 Potassium 00/00 Hx Tablets ER 10Meq 1 by mouth Unknown Chloride ER /0000 every day - 03/10 Immunizations CPT Code Status Date Vaccine Reaction Lot # [id number] Given 04/10/2017 Influenza Virus (Afluria) [id number] Split Virus 3 Years Of Age And Older 87992 Given 04/10/2017 Pneumovax Polyvalent Inj Im [id number] 25812 Given 04/10/2017 Pneumovax Polyvalent Inj Im Q2035 Given 05/24/2015 Influenza Virus (Afluria) Split Virus 3 Years Of Age And Older 17211 Given 03/02/2015 Pneumococcal Conjugate [id number] Vaccine 13 Valent For Intramuscular Use 31650 Given 12/23/2007 Tetanus,Diphtheria,Adut/Ado DONE THROUGH PREVIOUS l Pertussis PROVIFER 91240 Given 05/15/2007 Influenza Vaccine [id number] Vital Signs Date Vital Result Comment 05/19/2018 [...] Date Facility Test Result H/L Range Note CBC W/ Diff & PLT 05/13/2018 [facility] WBC 9.0 thous/L 3.8-10.8 1 [address] [place] [address] [phone] RBC 4.58 mill/L 3.80-5.10 Hemoglobin 14.1 g/dL 11.7-15.5 Hematocrit 41.7 % 35.0-45.0 MCV 91.2 FL 80.0-100.0 MCH 30.8 pg 27.0-33.0 MCHC 33.8 g/dL 32.0-36.0 RDW 15.2 % High 11.0-15.0 Platelet Count 218 thous/L 140-400 MPV 9.0 FL 7.5-12.5 Neutrophils,Absolute 5570 cells/L 0830-9820 Bands,Absolute PENDING Metamyelocytes,Absolute PENDING Myelocytes,Absolute PENDING Promyelocytes,Absolute [...] 2 % 0-4 Basophils,% 0 % 0-1 2 Blasts,% PENDING Nucleated RBC PENDING Comment PENDING Lipid Panel 2 05/13/2018 [facility] Cholesterol 184 mg/dL <199 6 [place] [address] [phone] HDL Cholesterol 100 mg/dL >50 Cholesterol/HDL Ratio 1.8 CALC <5.0 LDL Chol,Calculated 70 mg/dL 0-100 3 Triglycerides 61 mg/dL <150 4 Comp Metabolic Panel 05/13/2018 [facility] Sodium 136 mmol/L 135-146 [address] [place] [address] [phone] Potassium 4.0 mmol/L 3.5-5.3 Chloride 99 mmol/L 98-110 Carbon Dioxide 30 mmol/L 20-32 5 Calcium 9.6 mg/dL 8.6-10.4 Alkaline Phosphatase 93 U/L 33-130 Ast 16 U/L 10-35 Alt 10 U/L 6-29 Bilirubin,Total 1.4 mg/dL High 0.2-1.2 Glucose 93 mg/dL 65-99 6 Urea Nitrogen (BUN) 17 mg/dL 7-25 Creatinine 0.87 mg/dL 0.60-0.88 7 BUN/Creatinine Ratio 19.8 6-22 Protein,Total 6.3 g/dL 6.1-8.1 Albumin 4.1 g/dL 3.6-5.1 Globulin,Calculated 2.2 g/dL 1.9-3.7 A/G Ratio 1.8 1.0-2.5 Egfr Non-Afr. Iranian 60 ML/MIN/1.73M2 > Or=60 Egfr 69 ML/MIN/1.73M2 > Or=60 CBC W/ Diff & PLT 01/14/2018 [facility] WBC 7.1 thous/L 3.8-10.[address] [place], [place] [id number] [phone] RBC 4.75 mill/L 3.80-5.10 Hemoglobin 14.5 g/dL 11.7-15.5 Hematocrit 42.9 % 35.0-45.0 MCV 90.3 FL 80.0-100.0 MCH 30.6 pg 27.0-33.0 MCHC 33.8 g/dL 32.0-36.0 RDW 15.4 % High 11.0-15.0 Platelet Count 247 thous/L 140-400 Platelet Sufficiency PENDING MPV 9.3 FL 7.5-12.5 Neutrophils,Absolute 3960 cells/L 1845-8412 Bands,Absolute PENDING Metamyelocytes,Absolute PENDING Myelocytes,Absolute PENDING Promyelocytes,Absolute PENDING Lymphocytes,Absolute 2180 cells/L 850-3900 Monocytes,Absolute 720 cells/L 200-950 Eosinophils,Absolute 180 cells/L 15-500 Basophils,Absolute 70 cells/L 0-200 Blast Cells,Absolute PENDING Nucleated RBC,Absolute PENDING Total Neutrophils,% 56 % 40-75 Bands,% PENDING Metamyelocytes,% PENDING Myelocytes,% PENDING Promyelocytes,% PENDING Total Lymphocytes,% 31 % 12-47 Monocytes,% 10 % 4-12 Eosinophils,% 2 % 0-4 Basophils,% 1 % 0-1 8 Blasts,% PENDING Nucleated RBC PENDING RBC Morphology PENDING Anisocytosis PENDING Poikilocytosis PENDING Microcytosis PENDING Macrocytosis PENDING Polychromasia PENDING Hypochromasia PENDING Target Cells PENDING Basophilic Stippling PENDING Comment PENDING Lipid Panel 01/14/2018 [facility] Cholesterol 196 mg/dL <[address] [place], [place] [id number] [phone] HDL Cholesterol 98 mg/dL >50 Cholesterol/HDL Ratio 2.0 CALC <5.0 LDL Chol,Calculated 83 mg/dL 0-100 9 Triglycerides 66 mg/dL <150 Non-HDL Cholesterol 98 mg/dL <130 10 Comp Metabolic Panel 01/14/2018 [facility] Sodium 137 mmol/L 135-[address] [place], [place] [id number] [phone] Potassium 3.8 mmol/L 3.5-5.3 Chloride 100 mmol/L 98-110 Carbon Dioxide 30 mmol/L 20-31 Calcium 9.6 mg/dL 8.6-10.4 Alkaline Phosphatase 76 U/L 33-130 Ast 15 U/L 10-35 Alt 9 U/L 6-29 Bilirubin,Total 1.2 mg/dL 0.2-1.2 Glucose 90 mg/dL 65-99 11 Urea Nitrogen (BUN) 23 mg/dL 7-25 Creatinine 0.89 mg/dL High 0.60-0.88 12 BUN/Creatinine Ratio 25.3 High 6-22 Protein,Total 6.7 g/dL 6.1-8.1 Albumin 4.4 g/dL 3.6-5.1 Globulin,Calculated 2.3 g/dL 1.9-3.7 A/G Ratio 1.9 1.0-2.5 Egfr Non-Afr. Iranian 59 ML/MIN/1.73M2 Low > Or=60 Egfr 68 ML/MIN/1.73M2 > Or=60 Laboratory test 10/02/2017 [facility] Creatine 74 U/L 29-[address] [place] [address] [phone] Hepatic Function 10/02/2017 [facility] Alkaline 71 U/L 33-[address] [place] [address] [phone] Ast 17 U/L 10-35 Alt 12 U/L 6-29 Bilirubin,Total 1.2 mg/dL 0.2-1.2 Bilirubin,Direct 0.2 mg/dL < Or=0.2 Protein,Total 6.5 g/dL 6.1-8.1 Albumin 4.2 g/dL 3.6-5.1 Globulin,Calculated 2.3 g/dL 1.9-3.7 A/G Ratio 1.8 1.0-2.5 Lipid Panel 10/02/2017 [facility] Cholesterol 185 mg/dL <[address] [place] [address] [phone] HDL Cholesterol 83 mg/dL >50 Cholesterol/HDL Ratio 2.2 CALC <5.0 LDL Chol,Calculated 88 mg/dL 0-100 13 Triglycerides 62 mg/dL <150 Non-HDL Cholesterol 102 mg/dL <130 14 Laboratory test 10/02/2017 [facility] Hemoglobin A1c 5.2 % 0-5.6 [address] [place] [address] [phone] Basic Metabolic 10/02/2017 [facility] Sodium 138 mmol/L 135-[address] [place] [address] [phone] Potassium 4.3 mmol/L 3.5-5.3 Chloride 103 mmol/L 98-110 Carbon Dioxide 27 mmol/L 20-31 Calcium 9.5 mg/dL 8.6-10.4 Glucose 84 mg/dL 65-99 16 Urea Nitrogen (BUN) 18 mg/dL 7-25 Creatinine 0.92 mg/dL High 0.60-0.88 17 BUN/Creatinine Ratio 19.9 6-22 Egfr Non-Afr. Iranian 56 ML/MIN/1.73M2 Low > Or=60 Egfr 65 ML/MIN/1.73M2 > Or=60 CBC W/ Diff & PLT 10/02/2017 [facility] WBC 7.8 thous/L 3.8-10.[address] [place] [address] [phone] RBC 4.69 mill/L 3.80-5.10 Hemoglobin 13.9 g/dL 11.7-15.5 Hematocrit 41.1 % 35.0-45.0 MCV 87.7 FL 80.0-100.0 MCH 29.6 pg 27.0-33.0 MCHC 33.8 g/dL 32.0-36.0 RDW 15.7 % High 11.0-15.0 Platelet Count 215 thous/L 140-400 Platelet Sufficiency PENDING MPV 9.9 FL 7.5-12.5 Neutrophils,Absolute 3660 cells/L 1735-5079 Bands,Absolute PENDING Metamyelocytes,Absolute PENDING Myelocytes,Absolute PENDING Promyelocytes,Absolute PENDING Lymphocytes,Absolute 2970 cells/L 850-3900 Monocytes,Absolute 890 cells/L 200-950 Eosinophils,Absolute 200 cells/L 15-500 Basophils,Absolute 60 cells/L 0-200 Blast Cells,Absolute PENDING Nucleated RBC,Absolute PENDING Total Neutrophils,% 47 % 40-75 Bands,% PENDING Metamyelocytes,% PENDING Myelocytes,% PENDING Promyelocytes,% PENDING Total Lymphocytes,% 38 % 12-47 Monocytes,% 11 % 4-12 Eosinophils,% 3 % 0-4 Basophils,% 1 % 0-1 18 Blasts,% PENDING Nucleated RBC PENDING RBC Morphology PENDING Anisocytosis PENDING Poikilocytosis PENDING Microcytosis PENDING Macrocytosis PENDING Polychromasia PENDING Hypochromasia PENDING Target Cells PENDING Basophilic Stippling PENDING Comment PENDING Urinalysis With 08/01/2017 [facility] Urine Color YELLOW Yellow [address] [place] [address] [phone] Urine Clarity CLEAR Clear Urine Glucose - Dipstick NEGATIVE mg/dL Negative Urine Bilirubin - Dipstick NEGATIVE Negative Urine Ketone NEGATIVE mg/dL Negative Urine Specific [place] 1.015 1.010-1.030 Urine Blood NEGATIVE Negative Urine [...] F [address] <SEE NOTE> [place], [place] [id number] [phone] Quantity < 10,000 CFU/mL CBC W/ Diff & PLT 07/08/2017 [facility] WBC 7.6 thous/L 3.8-10.[address] [place], [place] [address] [phone] RBC 4.67 mill/L 3.80-5.10 Hemoglobin 13.8 g/dL 11.7-15.5 Hematocrit 41.5 % 35.0-45.0 MCV 88.9 FL 80.0-100.0 MCH 29.5 pg 27.0-33.0 MCHC 33.2 g/dL 32.0-36.0 RDW 14.9 % 11.0-15.0 Platelet Count 214 thous/L 140-400 Platelet Sufficiency PENDING MPV 9.4 FL 7.5-12.5 Neutrophils,Absolute 4430 cells/L 1176-5113 Bands,Absolute PENDING Metamyelocytes,Absolute PENDING Myelocytes,Absolute PENDING Promyelocytes,Absolute [...] [facility] Sodium 138 mmol/L 135-146 [address] [facility] [place] [address] [phone] Potassium 4.0 mmol/L 3.5-5.3 Chloride 103 mmol/L [...] 1.9-3.7 A/G Ratio 1.8 1.0-2.5 Egfr Non-Afr. Iranian 52 ML/MIN/1.73M2 Low > Or=60 Egfr 61 ML/MIN/1.73M2 > Or=60 Lipid Panel 07/08/2017 [facility] Cholesterol 187 mg/dL <199 [address] [place] [address] [phone] HDL Cholesterol 87 mg/dL >50 Cholesterol/HDL Ratio 2.1 CALC <5.0 LDL Chol,Calculated 83 mg/dL 0-100 27 Triglycerides 84 mg/dL <150 Non-HDL Cholesterol 101 mg/dL <130 28 Hepatic Function 07/08/2017 [facility] Alkaline Phosphatase 76 U/L 33- 130 Panel [address] [place] [address] [phone] Ast 15 U/L 10-35 Alt 9 U/L 6-29 Bilirubin,Total 0.8 mg/dL 0.2-1.2 Bilirubin,Direct 0.2 mg/dL < Or=0.2 Protein,Total 6.5 g/dL 6.1-8.1 Albumin 4.2 g/dL 3.6-5.1 Globulin,Calculated 2.3 g/dL 1.9-3.7 A/G Ratio 1.8 1.0-2.5 Laboratory test 07/08/2017 [facility] Creatine 94 U/L 29-[address] [place] [address] [phone] TSH & T4,Free 07/08/2017 [facility] TSH 2.91 0.40-4.[address] mIU/[place] [address] [phone] T4,Free 1.4 ng/dL 0.8-1.8 Basic Metabolic Panel 04/01/2017 [facility] Sodium 140 mmol/L 135-[address] [place], [place] [address] [phone] Potassium 4.3 mmol/L 3.5-5.3 Chloride 107 mmol/L 98-110 Carbon Dioxide 23 mmol/L 20-31 Calcium 9.4 mg/dL 8.6-10.4 Glucose 86 mg/dL 65-99 30 Urea Nitrogen 23 mg/dL 7-25 Creatinine 1.22 mg/dL High 0.60-0.88 31 BUN/Creatinine Ratio 18.6 6-22 Egfr Non-Afr. Iranian 40 ML/MIN/1.73M2 Low > Or=60 Egfr 47 ML/MIN/1.73M2 Low > Or=60 Comp Metabolic Panel 02/20/2017 [facility] Sodium 136 mmol/L 135-[address] [place], [place] [id number] [phone] Potassium 4.2 mmol/L 3.5-5.3 Chloride 100 mmol/L 98-110 Carbon Dioxide 27 mmol/L 20-31 Calcium 9.3 mg/dL 8.6-10.4 Alkaline Phosphatase 96 U/L 33-130 Ast 12 U/L 10-35 Alt 6 U/L 6-29 Bilirubin,Total 1.1 mg/dL 0.2-1.2 Glucose 94 mg/dL 65-99 32 Urea Nitrogen 33 mg/dL High 7-25 Creatinine 1.89 mg/dL High 0.60-0.88 33 BUN/Creatinine Ratio 17.4 6-22 Protein,Total 6.4 g/dL 6.1-8.1 Albumin 3.9 g/dL 3.6-5.1 Globulin,Calculated 2.5 g/dL 1.9-3.7 A/G Ratio 1.5 1.0-2.5 Egfr Non-Afr. Iranian 24 ML/MIN/1.73M2 Low > Or=60 Egfr 28 ML/MIN/1.73M2 Low > Or=60 Laboratory test 02/20/2017 [facility] Creatine 59 U/L 29-[address] [place], [place] [address] [phone] Hemoglobin A1c 5.6 % 0-5.6 34 Hepatic Function 02/20/2017 [facility] Alkaline Phosphatase 96 U/L 33- [address] [place], [place] [address] [phone] Ast 12 U/L 10-35 Alt 6 U/L 6-29 Bilirubin,Total 1.1 mg/dL 0.2-1.2 Bilirubin,Direct 0.2 mg/dL < Or=0.2 Protein,Total 6.4 g/dL 6.1-8.1 Albumin 3.9 g/dL 3.6-5.1 Globulin,Calculated 2.5 g/dL 1.9-3.7 A/G Ratio 1.5 1.0-2.5 General Health Panel 02/20/2017 [facility] TSH 2.60 mIU/L 0.40-4.[address] [place], [place] [address] [phone] T4,Free 1.4 ng/dL 0.8-1.8 Laboratory test 02/20/2017 [facility] Cholesterol 167 mg/dL 125-[address] [place] [address] [phone] CBC W/ Diff & PLT 02/20/2017 [facility] WBC 10.5 3.8-10.[address] thous/[place] [address] [phone] RBC 4.32 mill/L 3.80-5.10 Hemoglobin 12.9 g/dL 11.7-15.5 Hematocrit 38.9 % 35.0-45.0 MCV 90.0 FL 80.0-100.0 MCH 29.9 pg 27.0-33.0 MCHC 33.3 g/dL 32.0-36.0 RDW 14.7 % 11.0-15.0 Platelet Count 246 thous/L 140-400 Platelet Sufficiency PENDING MPV 9.4 FL 7.5-12.5 Neutrophils,Absolute 7220 cells/L 6997-2264 Bands,Absolute PENDING Metamyelocytes,Absolute PENDING Myelocytes,Absolute PENDING Promyelocytes,Absolute [...] Cells PENDING Basophilic Stippling PENDING Comment PENDING Urinalysis With 11/15/2016 [facility] Urine Color YELLOW Yellow [address] [place] [address] [phone] Urine Clarity CLEAR Clear Urine Glucose - Dipstick NEGATIVE mg/dL Negative Urine Bilirubin - Dipstick NEGATIVE Negative Urine Ketone NEGATIVE mg/dL Negative Urine Specific [place] 1.010 1.010-1.030 Urine Blood NEGATIVE Negative Urine [...] Source: URINE, CLEAN CAT <SEE NOTE> 39 Stool Culture 11/15/2016 [facility] Stool Culture NO ENTERIC PATHO [address] <SEE NOTE> [place] [address] [phone] . ................ <SEE NOTE> 41 Note: INCLUDES TESTING <SEE NOTE> 42 . PLESIOMONAS, CAM <SEE NOTE> 43 . ................ <SEE NOTE> 44 . YERSINIA AND VIB <SEE NOTE> 45 . SHOULD BE REQUES <SEE NOTE> 46 Shiga Toxin 1 Antigen Test not perform <SEE NOTE> 47 Shiga Toxin 2 Antigen Test not perform <SEE NOTE> 48 Laboratory test 11/15/2016 [facility] Occult NEGATIVE Negative [address] [place] [address] [phone] C. Difficile 11/15/2016 [facility] C. Difficile NEGATIVE FOR 50 Toxin A/B [address] Toxin A/B C. <[place] [address] NOTE> [phone] Smear For WBC'S 11/15/2016 [facility] Smear For WBC'S VERY FEW [address] [place] [address] [phone] Smear Source: STOOL Specimen Source: STOOL Differential-WBC 11/14/2016 [facility] Total Cells 100 #CELLS Confirm [address] [place] [address] [phone] Band% 6 % 0-8 Neutrophils% 80 % High 33-73 Lymph% 8 % Low 20-42 Monocyte% 4 % 0-10 Basophil% 2 % 0-2 Platelet Estimate NORMAL Anisocytosis 1+ Differential Comment LRG PLTS SEEN Slide Review 11/14/2016 [facility] Slide Review DIFF ORDERED [address] [place] [address] [phone] Comprehensive 11/14/2016 [facility] Glucose 119 mg/ dL High 74-10 Metabolic Panel [address] [place], [place] [address] [phone] BUN 29 mg/dL High 7-18 Creatinine 1.3 [...] U/L 12-78 Alkaline Phosphatase 95 U/L 45-117 CBS W/Automated 11/14/2016 [facility] White Blood 18.0 K/uL High 3.1-10.[address] [place] [address] [phone] Red Blood Count 4.55 M/uL 3.90-5.40 Hemoglobin [...] 1.8-7.0 Lymph # 0.83 K/uL Low 1.0-4.0 Calloway # 2.31 K/uL High 0.3-0.9 Eos # 0.07 K/uL 0.0-0.5 Baso # 0.04 K/uL 0.0-0.1 Laboratory test 11/14/2016 [facility] Lipase 238 U/L 73-[address] [place] [address] [phone] Basic Metabolic 10/28/2016 [facility] Sodium 139 mmol/L 135-[address] [place] [address] [phone] Potassium 4.0 mmol/L 3.5-5.3 Chloride 104 mmol/L 98-110 Carbon Dioxide 28 mmol/L 20-31 Calcium 9.4 mg/dL 8.6-10.4 Glucose 83 mg/dL 65-99 53 Urea Nitrogen 27 mg/dL High 7-25 Creatinine 1.03 mg/dL High 0.60-0.88 54 BUN/Creatinine Ratio 26.2 High 6-22 Egfr Non-Afr. Iranian 50 ML/MIN/1.73M2 Low > Or=60 Egfr 57 ML/MIN/1.73M2 Low > Or=60 CBC W/ Diff & PLT 10/28/2016 [facility] WBC 8.1 thous/L 3.8-10.[address] [place] [address] [phone] RBC 4.51 mill/L 3.80-5.10 Hemoglobin 13.2 g/dL 11.7-15.5 Hematocrit 40.4 % 35.0-45.0 MCV 89.6 FL 80.0-100.0 MCH 29.2 pg 27.0-33.0 MCHC 32.6 g/dL 32.0-36.0 RDW 14.9 % 11.0-15.0 Platelet Count 226 thous/L 140-400 Platelet Sufficiency PENDING MPV 9.5 FL 7.5-12.5 Neutrophils,Absolute 4890 cells/L 5579-6988 Bands,Absolute PENDING Metamyelocytes,Absolute PENDING Myelocytes,Absolute PENDING Promyelocytes,Absolute PENDING Lymphocytes,Absolute 2030 cells/L 850-3900 Monocytes,Absolute 850 cells/L 200-950 Eosinophils,Absolute 240 cells/L 15-500 Basophils,Absolute 50 cells/L 0-200 Blast Cells,Absolute PENDING Nucleated RBC,Absolute PENDING Total Neutrophils,% 61 % 40-75 Bands,% PENDING Metamyelocytes,% PENDING Myelocytes,% PENDING Promyelocytes,% PENDING Total Lymphocytes,% 25 % 12-47 Monocytes,% 11 % 4-12 Eosinophils,% 3 % 0-4 Basophils,% 1 % 0-1 55 Blasts,% PENDING Nucleated RBC PENDING RBC Morphology PENDING Anisocytosis PENDING Poikilocytosis PENDING Microcytosis PENDING Macrocytosis PENDING Polychromasia PENDING Hypochromasia PENDING Target Cells PENDING Basophilic Stippling PENDING Comment PENDING Laboratory test 08/14/2016 [facility] Digoxin 1.3 ng/ mL 0.8-2.0 [address] [place] [address] [phone] Aot Request 08/13/2016 [facility] Aot Request Test(s ) 57, [address] [place] [address] [phone] Tests to be added: dIGOXIN LEVEL Blood Culture 08/13/2016 [facility] Blood Culture NO GROWTH: 59, [address] Aerobic FINAL <[place] [address] NOTE> [phone] Blood Culture Anaerobic NO GROWTH: FINAL <SEE NOTE> 61 Ua RFX Micro & 08/13/2016 [facility] Urine Color YELLOW Yellow 62 Culture II [address] [place], [place] [address] [phone] Urine Clarity CLEAR Clear Urine Glucose - Dipstick NEGATIVE mg/dL Negative Urine Bilirubin - Dipstick NEGATIVE Negative Urine Ketone NEGATIVE mg/dL Negative Urine Specific [place] 1.010 1.010-1.030 Urine Blood NEGATIVE Negative Urine PH 7.0 6.5-7.5 Urine Protein - Dipstick NEGATIVE mg/dL Negative Urine Urobilinogen - Dipstick 0.2 E.U./dL 0.2-1.0 Urine Nitrite - Dipstick NEGATIVE Negative Urine Leuk Esterase NEGATIVE Negative Source: URINE, CLEAN CAT <SEE NOTE> 63 Laboratory test 08/13/2016 [facility] NT-proBNP 1082.0 High <[address] pg/[place] [address] [phone] Blood Culture 08/13/2016 [facility] Blood Culture NO GROWTH: 64, [address] Aerobic FINAL <[place] [address] NOTE> [phone] Blood Culture Anaerobic NO GROWTH: FINAL <SEE NOTE> 66 Hepatic Function 07/09/2016 [facility] Alkaline 75 U/L 33-130 [address] Phosphatase [place], [place] [address] [phone] Ast 26 U/L 10-35 Alt 23 U/L 6-29 Bilirubin,Total 1.3 mg/dL High 0.2-1.2 Bilirubin,Direct 0.2 mg/dL < Or=0.2 Protein,Total 6.6 g/dL 6.1-8.1 Albumin 4.3 g/dL 3.6-5.1 Globulin,Calculated 2.3 g/dL 1.9-3.7 A/G Ratio 1.8 1.0-2.5 Laboratory test 07/09/2016 [facility] Creatine 101 U/L 29-[address] Kinase,[place], [place] [address] [phone] CBC W/ Diff & 07/09/2016 [facility] WBC 6.7 3.8-10.[address] [place]/ [place] [address] L [phone] RBC 4.61 mill/L 3.80-5.10 Hemoglobin 13.4 g/dL 11.7-15.5 Hematocrit 40.9 % 35.0-45.0 MCV 88.9 FL 80.0-100.0 MCH 29.1 pg 27.0-33.0 MCHC 32.8 g/dL 32.0-36.0 RDW 16.1 % High 11.0-15.0 Platelet Count 217 thous/L 140-400 Platelet Sufficiency PENDING MPV 9.6 FL 7.5-11.5 Neutrophils,Absolute 4360 cells/L 3311-8405 Bands,Absolute PENDING Metamyelocytes,Absolute PENDING Myelocytes,Absolute PENDING Promyelocytes,Absolute PENDING Lymphocytes,Absolute 1420 cells/L 850-3900 Monocytes,Absolute 810 cells/L 200-950 Eosinophils,Absolute 70 cells/L 15-500 Basophils,Absolute 30 cells/L 0-200 Blast Cells,Absolute PENDING Nucleated RBC,Absolute PENDING Total Neutrophils,% 65 % 40-75 Bands,% PENDING Metamyelocytes,% PENDING Myelocytes,% PENDING Promyelocytes,% PENDING Total Lymphocytes,% 21 % 12-47 Monocytes,% 12 % 4-12 Eosinophils,% 1 % 0-4 Basophils,% 0 % 0-1 68 Blasts,% PENDING Nucleated RBC PENDING RBC Morphology PENDING Anisocytosis PENDING Poikilocytosis PENDING Microcytosis PENDING Macrocytosis PENDING Polychromasia PENDING Hypochromasia PENDING Target Cells PENDING Basophilic Stippling PENDING Comment PENDING Basic Metabolic Panel 07/09/2016 [facility] Sodium 134 mmol/L Low 135-[address] [place] [address] [phone] Potassium 4.4 mmol/L 3.5-5.3 Chloride 99 mmol/L 98-110 Carbon Dioxide 26 mmol/L 20-31 Calcium 9.5 mg/dL 8.6-10.4 Glucose 80 mg/dL 65-99 69 Urea Nitrogen 23 mg/dL 7-25 Creatinine 1.20 mg/dL High 0.60-0.88 70 BUN/Creatinine Ratio 18.8 6-22 Egfr Non-Afr. Iranian 41 ML/MIN/1.73M2 Low > Or=60 Egfr 48 ML/MIN/1.73M2 Low > Or=60 Lipid Panel 07/09/2016 [facility] Cholesterol 212 mg/dL High 125-[address] [place] [address] [phone] HDL Cholesterol 108 mg/dL > Or=46 Cholesterol/HDL Ratio 2.0 < Or=5.0 LDL Chol,Calculated 91 mg/dL <130 71 Triglycerides 67 mg/dL <150 Non-HDL Cholesterol 104 mg/dL 72 Laboratory test 07/09/2016 [facility] Hemoglobin A1c 5.7 % High 0.0-5.[address] [place] [address] [phone] Comp Metabolic 03/17/2016 [facility] Sodium 139 133-145 [address] mmol/[place] [address] [phone] Potassium 4.5 mmol/L 3.5-5.0 Chloride 105 mmol/L [...] Non- 63.7 >60 Egfr 81.9 >60 75 Laboratory test 03/17/2016 [facility] B Type 242 pg/mL High [address] [place] [address] Peptide [phone] CBC Auto Diff 03/17/2016 [facility] White Blood 8.6 3.5-[address] Count 10^3/uL 0.8 [place] [address] [phone] Red Blood Count 4.49 10^6/uL 4.0-5.4 Hemoglobin [...] 0-2 Nucleated Red Blood Cells % 0.2 General Health Panel 03/12/2016 [facility] TSH 1.99 mIU/L 0.40-4.50 77, [address] [place] [address] [phone] T4,Free 1.3 ng/dL 0.8-1.8 CMP W/O Egfr 03/12/2016 [facility] Sodium 139 mmol/L 135-[address] [place], [place] [id number] [phone] Potassium 4.2 mmol/L 3.5-5.3 Chloride 104 mmol/L 98-110 Carbon Dioxide 24 mmol/L 20-31 Calcium 9.4 mg/dL 8.6-10.4 Alkaline Phosphatase 70 U/L 33-130 Ast 16 U/L 10-35 Alt 13 U/L 6-29 Bilirubin,Total 1.6 mg/dL High 0.2-1.2 Glucose 88 mg/dL 65-99 79 Urea Nitrogen 15 mg/dL 7-25 Creatinine 0.80 mg/dL 0.60-0.88 80 BUN/Creatinine Ratio 18.6 6-22 Protein,Total 6.5 g/dL 6.1-8.1 Albumin 4.3 g/dL 3.6-5.1 Globulin,Calculated 2.2 g/dL 1.9-3.7 A/G Ratio 2.0 1.0-2.5 CBC W/ Diff & PLT 03/12/2016 [facility] WBC 8.5 thous/L 3.8-10.[address] [place], [place] [id number] [phone] RBC 4.57 mill/L 3.80-5.10 Hemoglobin 13.8 g/dL 11.7-15.5 Hematocrit 41.3 % 35.0-45.0 MCV 90.3 FL 80.0-100.0 MCH 30.3 pg 27.0-33.0 MCHC 33.5 g/dL 32.0-36.0 RDW 15.2 % High 11.0-15.0 Platelet Count 214 thous/L 140-400 Platelet Sufficiency PENDING MPV 10.3 FL 7.5-11.5 Neutrophils,Absolute 5390 cells/L 3658-9182 Bands,Absolute PENDING Metamyelocytes,Absolute PENDING Myelocytes,Absolute PENDING Promyelocytes,Absolute PENDING Lymphocytes,Absolute 1900 cells/L 850-3900 Monocytes,Absolute 850 cells/L 200-950 Eosinophils,Absolute 280 cells/L 15-500 Basophils,Absolute 50 cells/L 0-200 Blast Cells,Absolute PENDING Nucleated RBC,Absolute PENDING Total Neutrophils,% 64 % 40-75 Bands,% PENDING Metamyelocytes,% PENDING Myelocytes,% PENDING Promyelocytes,% PENDING Total Lymphocytes,% 22 % 12-47 Monocytes,% 10 % 4-12 Eosinophils,% 3 % 0-4 Basophils,% 1 % 0-1 81 Blasts,% PENDING Nucleated RBC PENDING RBC Morphology PENDING Anisocytosis PENDING Poikilocytosis PENDING Microcytosis PENDING Macrocytosis PENDING Polychromasia PENDING Hypochromasia PENDING Target Cells PENDING Basophilic Stippling PENDING Comment PENDING Lipid Panel 03/12/2016 [facility] Cholesterol 166 mg/dL 125-200 [address] [facility] [place] [address] [phone] HDL Cholesterol 68 mg/dL > Or=46 Cholesterol/HDL Ratio 2.4 < Or=5.0 LDL Chol,Calculated 78 mg/dL <130 82 Triglycerides 98 mg/dL <150 Non-HDL Cholesterol 98 mg/dL 83 Hepatic Function 03/12/2016 [facility] Alkaline Phosphatase 70 U/L 33- 130 Panel [address] [place] [address] [phone] Ast 16 U/L 10-35 Alt 13 U/L 6-29 Bilirubin,Total 1.6 mg/dL High 0.2-1.2 Bilirubin,Direct 0.3 mg/dL High < Or=0.2 Protein,Total 6.5 g/dL 6.1-8.1 Albumin 4.3 g/dL 3.6-5.1 Globulin,Calculated 2.2 g/dL 1.9-3.7 A/G Ratio 2.0 1.0-2.5 BMP W/O Egfr 12/12/2015 [facility] Sodium 139 mmol/L 135-146 [address] [facility] [place] [address] [phone] Potassium 4.3 mmol/L 3.5-5.3 Chloride 104 mmol/L 98-110 Carbon Dioxide 25 mmol/L 19-30 Calcium 9.4 mg/dL 8.6-10.4 Glucose 89 mg/dL 65-99 84 Urea Nitrogen 23 mg/dL 7-25 Creatinine 0.92 mg/dL High 0.60-0.88 85 BUN/Creatinine Ratio 25.1 High 6-22 BMP W/O Egfr 09/04/2015 [facility] Sodium 140 mmol/L 135-[address] [place], [place] [id number] [phone] Potassium 4.3 mmol/L 3.5-5.3 Chloride 104 mmol/L 98-110 Carbon Dioxide 27 mmol/L 19-30 Calcium 9.5 mg/dL 8.6-10.4 Glucose 91 mg/dL 65-99 86 Urea Nitrogen 21 mg/dL 7-25 Creatinine 0.76 mg/dL 0.60-0.88 87 BUN/Creatinine Ratio 27.6 High 6-22 BMP W/O Egfr 05/31/2015 [facility] Sodium 137 mmol/L 135-[address] [place] [address] [phone] Potassium 4.2 mmol/L 3.5-5.3 Chloride 103 mmol/L 98-110 Carbon Dioxide 25 mmol/L 19-30 Calcium 9.4 mg/dL 8.6-10.4 Glucose 89 mg/dL 65-99 88 Urea Nitrogen 19 mg/dL 7-25 Creatinine 0.70 mg/dL 0.60-0.88 89 BUN/Creatinine Ratio 27.0 High 6-22 General Health Panel 02/23/2015 [facility] TSH 2.50 mIU/L 0.40-4.[address] [place] [address] [phone] T4,Free 1.3 ng/dL 0.8-1.8 CMP W/O Egfr 02/23/2015 [facility] Sodium 136 mmol/L 135-[address] [place] [address] [phone] Potassium 4.1 mmol/L 3.5-5.3 Chloride 103 mmol/L [...] [facility] WBC 9.4 thous/L 3.8-10.8 [address] [place] [address] [phone] RBC 4.82 mill/L 3.80-5.10 Hemoglobin 14.4 g/dL 11.7-15.5 Hematocrit 44.3 % 35.0-45.0 MCV 91.9 FL 80.0-100.0 MCH 29.8 pg 27.0-33.0 MCHC 32.4 g/dL 32.0-36.0 RDW 15.4 % High 11.0-15.0 Platelet Count 235 thous/L 140-400 Platelet Sufficiency PENDING MPV 10.1 FL 7.5-11.5 Neutrophils,Absolute 6330 cells/L 7349-7594 Bands,Absolute PENDING Metamyelocytes,Absolute PENDING Myelocytes,Absolute PENDING Promyelocytes,Absolute [...] Lab Cholesterol 202 mg/dL High 125-[address] [place], [place] [id number] [phone] HDL Cholesterol 85 mg/dL > Or=46 Cholesterol/HDL Ratio 2.4 < Or=5.0 LDL Chol,Calculated 98 mg/dL <130 93 Triglycerides 96 mg/dL <150 Non-HDL Cholesterol 117 mg/dL 94 Hepatic Function 02/23/2015 [facility] Alkaline Phosphatase 93 U/L 33- [address] [place], [place] [id number] [phone] Ast 17 U/L 10-35 Alt 12 U/L 6-29 Bilirubin,Total 1.0 mg/dL 0.2-1.2 Bilirubin,Direct 0.2 mg/dL < Or=0.2 Protein,Total 6.8 g/dL 6.1-8.1 Albumin 4.3 g/dL 3.6-5.1 Globulin,Calculated 2.5 g/dL 1.9-3.7 A/G Ratio 1.7 1.0-2.5 Laboratory 02/23/2015 [facility] Vitamin 26 Low 30-[address] D,25-Hydroxy,Total,Immunoassay NG/ML finding [place] [id number] [phone] CBC W/ Diff 11/23/2014 [facility] WBC 7.2 3.8-10. & PLT [address] [place] [address] L [phone] RBC 4.57 mill/L 3.80-5.10 Hemoglobin 13.6 g/dL 11.7-15.5 Hematocrit 41.3 % 35.0-45.0 MCV 90.3 FL 80.0-100.0 MCH 29.6 pg 27.0-33.0 MCHC 32.8 g/dL 32.0-36.0 RDW 14.6 % 11.0-15.0 Platelet Count 232 thous/L 140-400 Platelet Sufficiency PENDING Neutrophils,Absolute 4370 cells/L 6281-3590 Bands,Absolute PENDING Metamyelocytes,Absolute PENDING Myelocytes,Absolute PENDING Promyelocytes,Absolute [...] Glucose 97 mg/dL 74-[address] [place], [place] [address] [phone] BUN 14 mg/dL 7-18 Creatinine 0.7 mg/dL 0.6-1.3 Glom Filtration Rate, Estimate >60 mL/min >60 If >60 mL/min >60 96 BUN/Creat 20.0 ratio Sodium 139 mmol/L 136-145 Potassium 3.9 mmol/L 3.5-5.1 Chloride 103 mmol/L 98-107 Carbon Dioxide 26 mmol/L 21-32 Anion Gap 10 mEq/L 8-16 Calcium 9.1 mg/dL 8.5-10.1 CBC W/ Diff & 07/22/2014 [facility] White Blood 9.2 K /uL 3.1-10.[address] [place] [address] [phone] Red Blood Count 4.52 M/uL 3.90-5.40 Hemoglobin [...] % 40.4-72.8 Lymph % 22.0 % 17.0-46.1 Calloway % 12.3 % 4.3-13.2 Eo% 3.3 % 0.0-6.6 Bas% 0.9 % 0.0-1.1 Neut# 5.68 K/uL 1.0-7.0 Lymph # 2.03 K/uL 0.8-3.4 Calloway # 1.13 K/uL High 0.3-0.9 Eos # 0.30 K/uL 0.0-0.5 Baso # 0.08 K/uL 0.0-0.1 Basic Metabolic Panel 07/22/2014 [facility] Glucose 89 mg/dL 74-[address] [place] [address] [phone] BUN 17 mg/dL 7-18 Creatinine 0.9 mg/dL 0.6-1.3 Glom Filtration Rate, Estimate >60 mL/min >60 If >60 mL/min >60 97 BUN/Creat 18.8 ratio Sodium 140 mmol/L 136-145 Potassium 3.7 mmol/L 3.5-5.1 Chloride 106 mmol/L 98-107 Carbon Dioxide 30 mmol/L 21-32 Anion Gap 8 mEq/L 8-16 Calcium 8.8 mg/dL 8.5-10.1 Liver Function 07/22/2014 [facility] Total Protein 6.5 g/dL 6.4-8.[address] [place] [address] [phone] Albumin 3.7 g/dL 3.4-5.0 Globulin 2.8 g/dL 1.9-4.3 Alb/Glob 1.3 ratio Bilirubin,Total 0.6 mg/dL 0.2-1.0 Bilirubin,Direct 0.2 mg/dL 0.0-0.2 Bilirubin,Indirect 0.4 mg/dL 0.0-0.9 Sgot/Ast 19 U/L 15-37 SGPT/Alt 24 U/L 12-78 Alkaline Phosphatase 113 U/L 45-117 1 FASTING 2 Relative blood cell counts (%) should be compared with absolute cell counts (cells/mcL). Relative counts may not be clinically meaningful if the absolute count of one or more cell type is decreased. Reference ranges for relative cell counts derived from: A Manual of Laboratory and Diagnostics Tests, 9th Ed, [employer], 2015. Pediatric Reference Intervals, 7th Ed, [employer], 2011. 3 LDL-C is now calculated using the Raza-Nick calculation, which is a validated novel method providing better accuracy than the Friedewald equation in the estimation of LDL-C. Raza SS et al.FARIBA.2013;310(19):9793-9044 Desirable range <100 mg/dL for primary prevention; <70 mg/dL for patients with CHD or diabetic patients with >or=2 CHD risk factors. For additional information, please refer to http://Actimagine.Homuork/faq/JYA021(This link is being provided for informational/educational purposes only.) 4 WE RECEIVED YOUR HANDWRITTEN TEST ORDER. WE PERFORMED THE AMA DEFINED LIPID PANEL. IF THIS IS NOT WHAT YOU INTENDED TO ORDER, PLEASE CONTACT YOUR LOCAL PIPE ASSEMBLY WORKER IMMEDIATELY AT SO THAT WE CAN ADJUST OUR BILLING APPROPRIATELY. YOU MAY ALSO INQUIRE ABOUT ALTERNATIVE OR ADDITIONAL TESTING. 5 Reference range for high altitude clients: 18-30 mmol/L 6 GLUCOSE REFERENCE RANGE BASED ON FASTING SPECIMEN. 7 The upper reference limit for Creatinine is approximately 13% higher for people identified as -Iranian. 8 Relative blood cell counts (%) should be compared with absolute cell counts (cells/mcL). Relative counts may not be clinically meaningful if the absolute count of one or more cell type is decreased. Reference ranges for relative cell counts derived from: A Manual of Laboratory and Diagnostics Tests, 9th Ed, [employer], 2015. Pediatric Reference Intervals, 7th Ed, [employer], 2011. 9 LDL-C is now calculated using the Raza-Nick calculation, which is a validated novel method providing better accuracy than the Friedewald equation in the estimation of LDL-C. Raza SS et al.FARIBA.2013;310(19):1052-8357 Desirable range <100 mg/dL for primary prevention; <70 mg/dL for patients with CHD or diabetic patients with >or=2 CHD risk factors. For additional information, please refer to http://Actimagine.Homuork/faq/GIM196(This link is being provided for informational/educational purposes only.) 10 For patients with diabetes plus 1 major ASCVD risk factor, treating to a non-HDL-C goal of <100 mg/dL (LDL-C of <70 mg/ dL) is considered a therapeutic option. 11 GLUCOSE REFERENCE RANGE BASED ON FASTING SPECIMEN. 12 The upper reference limit for Creatinine is approximately 13% higher for people identified as -Iranian. 13 LDL-C is now calculated using the Raza-Nick calculation, which is a validated novel method providing better accuracy than the Friedewald equation in the estimation of LDL-C. Raza SS et al.FARIBA.2013;31019):1882-7554 (http://education.[employer]/faq/KGM622) Desirable range <100 mg/dL for patients with CHD or Diabetes and <70 mg/dL for Diabetic patients with known heart disease 14 For patients with diabetes plus 1 major ASCVD risk factor, treating to a non-HDL-C goal of <100 mg/dL (LDL-C of <70 mg/ dL) is considered a therapeutic option. 15 For the purpose of screening for the presence of diabetes: <5.7% Consistent with the absence of diabetes 5.7-6.4% Consistent with the increased risk of diabetes (prediabetes) >or=6.5% Consistent with diabetes This assay result is conistent with a decreased risk of diabetes. Currently, no consensus exists regarding use of hemoglobin A1C for diagnosis of diabetes in children. According to [place] Diabetes Association (ADA) guidelines, hemoglobin A1C <7.0% [...] < 8.0 ACHIEVES LESS STRINGENT GLYCEMIC GOAL 16 GLUCOSE REFERENCE RANGE BASED ON FASTING SPECIMEN. 17 The upper reference limit for Creatinine is approximately 13% higher for people identified as -Iranian. 18 Relative blood cell counts (%) should be compared with absolute cell counts (cells/mcL). Relative counts may not be clinically meaningful if the absolute count of one or more cell type is decreased. Reference ranges for relative cell counts derived from: A Manual of Laboratory and Diagnostics Tests, 9th Ed, [employer], 2015. Pediatric Reference Intervals, 7th Ed, [employer], 2011. 19 VOMITING, DIARRHEA, HEADACHE, AFTER AMOXICILLIN 20 [...] approximately 13% higher for people identified as -Iranian. 27 LDL-C is now calculated using the Raza-Park calculation, which is a validated novel method providing better accuracy than the Friedewald equation in the estimation of LDL-C. Raza MADRID et al.FARIBA.2013;310(19):3131-1123 (http://education.[employer] Science.com/faq/QNS694) Desirable range <100 mg/dL for patients with [...] approximately 13% higher for people identified as -Iranian. 32 GLUCOSE REFERENCE RANGE BASED ON FASTING SPECIMEN. 33 The upper reference limit for Creatinine is approximately 13% higher for people identified as -Iranian. 34 For the purpose of screening for the presence of diabetes: <5.7% Consistent with the absence of diabetes 5.7-6.4% Consistent with the increased risk of diabetes (prediabetes) >or=6.5% Consistent with diabetes This assay result is conistent with a decreased risk of diabetes. Currently, no consensus exists regarding use of hemoglobin A1C for diagnosis of diabetes in children. According to [place] Diabetes Association (ADA) guidelines, hemoglobin A1C <7.0% [...] < 8.0 ACHIEVES LESS STRINGENT GLYCEMIC GOAL 35 REFERENCE RANGES BELOW ARE APPLICABLE TO FEMALES FIRST TRIMESTER - 0.26 - 2.66 mIU/L SECOND TRIMESTER - 0.55 - 2.73 mIU/L THIRD TRIMESTER - 0.43 - 2.91 mIU/L 36 Relative blood cell counts (%) should be compared with absolute cell counts (cells/mcL). Relative counts may not be clinically meaningful if the absolute count of one or more cell type is decreased. Reference ranges for relative cell counts derived from: A Manual of Laboratory and Diagnostics Tests, 9th Ed, [employer], 2015. Pediatric Reference Intervals, 7th Ed, [facility], 2011. 37 VOMITING, DIARRHEA, GEN ILL 38 POSSIBLE UROGENITAL CONTAMINATION. 39 URINE, CLEAN CATCH 40 NO ENTERIC PATHOGENS ISOLATED 41 ................................................... 42 INCLUDES TESTING FOR SALMONELLA, SHIGELLA, AEROMONAS, 43 PLESIOMONAS, CAMPYLOBACTER, AND E. COLI 0157:H7 44 ................................................... 45 YERSINIA AND VIBRIO ARE NOT ROUTINELY SCREENED FOR AND 46 SHOULD BE REQUESTED SEPARATELY SCANT ENTERIC LEYLA ISOLATED 47 Test not performed INSUFFICENT GROWTH TO PERFORM TESTING 48 Test not performed INSUFFICENT GROWTH TO PERFORM TESTING 49 Method: Reema Blanca Hemoccult Card 50 NEGATIVE FOR C. DIFFICILE TOXIN A/B. [...] called to: [] 11/15/16 at 0027 53 GLUCOSE REFERENCE RANGE BASED ON FASTING SPECIMEN. 54 The upper reference limit for Creatinine is approximately 13% higher for people identified as -Iranian. 55 Relative blood cell counts (%) should be compared with absolute cell counts (cells/mcL). Relative counts may not be clinically meaningful if the absolute count of one or more cell type is decreased. Reference ranges for relative cell counts derived from: A Manual of Laboratory and Diagnostics Tests, 9th Ed, [employer], 2015. Pediatric Reference Intervals, 7th Ed, [facility], 2011. 56 SYMPTOMATIC BRADYCARDIA 57 SOB 58 Tests: dIGOXIN LEVEL Instructions: 59 CADET TO LUGO 60 NO GROWTH: FINAL REPORT 61 NO GROWTH: FINAL REPORT 62 SOB 63 URINE, CLEAN CATCH 64 CADET TO LUGO 65 NO GROWTH: FINAL REPORT 66 NO GROWTH: FINAL REPORT 67 FASTING 68 Relative blood cell counts (%) should be compared with absolute cell counts (cells/mcL). Relative counts may not be clinically meaningful if the absolute count of one or more cell type is decreased. Reference ranges for relative cell counts derived from: A Manual of Laboratory and Diagnostics Tests, 9th Ed, [employer], 2015. Pediatric Reference Intervals, 7th Ed, [facility], 2011. 69 GLUCOSE REFERENCE RANGE BASED ON FASTING SPECIMEN. 70 The upper reference limit for Creatinine is approximately 13% higher for people identified as -Iranian. 71 LDL-CHOLESTEROL RISK CATEGORY* GOAL VERY HIGH (E.G. DIABETES + CVD) <70 MG/DL HIGH (DIABETICS; CHD RISK EQUIVALENTS) <100 MG/DL MODERATELY HIGH (MULTIPLE(2+) RISK FACTORS) <130 MG/DL 0 TO 1 RISK FACTORS <160 MG/DL * NCEP REPORT. CIRCULATION 2004; 110: 227-239 72 Target for non-HDL cholesterol is 30 mg/dL higher than LDL cholesterol target. 73 According to ADA guidelines, hemoglobin A1c <7.0% [...] A1C for diagnosis of diabetes in children. 74 [id number] 75 Because ethnic data is not always [...] 5 Kidney failure <15 (or dialysis) 76 >100 to <200 pg/mL: likely compensated congestive heart failure (CHF) 200 to 400 pg/mL: likely moderate CHF >400 pg/mL: likely moderate to severe CHF 77 FASTING 78 REFERENCE RANGES BELOW ARE APPLICABLE TO FEMALES FIRST TRIMESTER - 0.26 - 2.66 mIU/L SECOND TRIMESTER - 0.55 - 2.73 mIU/L THIRD TRIMESTER - 0.43 - 2.91 mIU/L 79 GLUCOSE REFERENCE RANGE BASED ON FASTING SPECIMEN. 80 The upper reference limit for Creatinine is approximately 13% higher for people identified as -Iranian. 81 Relative blood cell counts (%) should be compared with absolute cell counts (cells/mcL). Relative counts may not be clinically meaningful if the absolute count of one or more cell type is decreased. Reference ranges for relative cell counts derived from: A Manual of Laboratory and Diagnostics Tests, 9th Ed, [employer] Ashley, 2015. Pediatric Reference Intervals, 7th Ed, [employer], 2011. 82 LDL-CHOLESTEROL RISK CATEGORY* GOAL VERY HIGH (E.G. DIABETES + CVD) <70 MG/DL HIGH (DIABETICS; CHD RISK EQUIVALENTS) <100 MG/DL MODERATELY HIGH (MULTIPLE(2+) RISK FACTORS) <130 MG/DL 0 TO 1 RISK FACTORS <160 MG/DL * NCEP REPORT. CIRCULATION 2004; 110: 227-239 83 Target for non-HDL cholesterol is 30 mg/dL higher than LDL cholesterol target. 84 GLUCOSE REFERENCE RANGE BASED ON FASTING SPECIMEN. 85 The upper reference limit for Creatinine is approximately 13% higher for people identified as -Iranian. 86 GLUCOSE REFERENCE RANGE BASED ON FASTING SPECIMEN. 87 The upper reference limit for Creatinine is approximately 13% higher for people identified as -Iranian. 88 GLUCOSE REFERENCE RANGE BASED ON FASTING SPECIMEN. 89 The upper reference limit for Creatinine is approximately 13% higher for people identified as -Iranian. 90 REFERENCE RANGES BELOW ARE APPLICABLE TO FEMALES FIRST TRIMESTER - 0.26 - 2.66 mIU/L SECOND TRIMESTER - 0.55 - 2.73 mIU/L THIRD TRIMESTER - 0.43 - 2.91 mIU/L 91 GLUCOSE REFERENCE RANGE BASED ON FASTING SPECIMEN. 92 The upper reference limit for Creatinine is approximately 13% higher for people identified as -Iranian. 93 LDL-CHOLESTEROL RISK CATEGORY* GOAL VERY HIGH (E.G. DIABETES + CVD) <70 MG/DL HIGH (DIABETICS; CHD RISK EQUIVALENTS) <100 MG/DL MODERATELY HIGH (MULTIPLE(2+) RISK FACTORS) <130 MG/DL 0 TO 1 RISK FACTORS <160 MG/DL * NCEP REPORT. CIRCULATION 2004; 110: 227-239 94 Target for non-HDL cholesterol is 30 mg/dL higher than LDL cholesterol target. 95 Vitamin D Status 25-OH Vitamin D: Deficiency: <20 ng/mL Insufficiency: 20-29 ng/mL Optimal: > or=30 ng/mL For 25-OH Vitamin D testing on patients on D2-supplementation and patients for whom quantitation of D2 and D3 fractions is required, the [facility] 25-OH Vit D, (D2,D3),LC/MS/MS is recommended: Order code 84165 (patients >2 yrs). 96 Note: Persistent reduction for 3 months or more in an eGFR <60 mL/min/1.73 m2 defines CKD. Patients with eGFR values >/=60 mL/min/1.73 m2 may also have CKD if evidence of persistent proteinuria is present. The original MDRD equation for estimated GFR is not valid for patients less than 18 years of age. Additional information may be found at www.kdoqi.org. 97 Note: Persistent reduction for 3 months or [...] www.kdoqi.org. Procedures Date Code Description Status 02/20/2017 640248466 Bone Mineral Density Test Completed 02/20/2017 48678 Dxa Bone Density Ax[employer] Vertebral Fracture Completed Assessment 02/20/2017 32611 PVR-Atrerial Study Completed 01/30/2017 24296 Non-Invcorrotid/Comp /Bilat Study Completed 11/01/2016 [id number] Mammogram Completed 03/11/2016 73985 Non-Invcorrotid/Comp /Bilat Study Completed 05/31/2015 78966 EKG-Tracing & Report Completed 02/28/2015 21658 EKG-Tracing & Report Completed 02/27/2015 61145 PVR-Atrerial Study Completed 02/23/2015 08850 Spirometry Graphic Record/Max Voluntary Vent Completed 02/23/2015 85153 EKG-Tracing & Report Completed 02/23/2015 47411 Bone Density Completed 11/28/2014 59870 Holter Monitor Office Completed 10/17/2006 [id number] Colonoscopy Completed 09/12/2006 69207 Doppler Colow Flow Velocity Completed 09/12/2006 54122 Doppler Cardiac Completed 09/12/2006 12507 ECHO-2DW/Wo M-Mode Completed Encounters Type Date Location Provider Dx Diagnosis Office Visit 01/28/2018 Main Office Go Barrios MD I48.91 Unspecified atrial 10:15a fibrillation J44.0 Chronic obstructive pulmon disease w [...] 11:50a Main Office Kameron [place], T78.40xD Allergy , MD unspecified, subsequent encounter T88.7xxA Unsp adverse [...] pm - Go Barrios MD at Main Office
[2018-06-12 11:15] VITALS: BP 121/58
--- NOTE | 2018-06-12 11:37 | UC ---
Epistaxis Nasal HPI - HPI Summary HPI Summary: 88 yo female presents with left sided blood nose. 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 She endorses that she has had the heat on more recently and has not been using a humidifier. She is on eliquis for afib and has been stable with this for years - per pt. She kept putting tissues into her nose, but could not get the bleeding to stop. She denies injury, headache, dizziness. Her nose bleed has stopped at the time of this interview. - History of Current Complaint Chief Complaint: UCGeneralIllness Stated Complaint: BLOODY NOSE Time Seen by Provider: 06/12/18 11:37 Hx Obtained From: Patient Onset/Duration: Sudden Onset Severity Currently: None Pain Intensity: 0 - Allergies/Home Medications Allergies/Adverse Reactions: Allergies Allergy/AdvReac Type Severity Reaction Status Date / Time alendronate sodium Allergy Dizziness Verified 06/12/18 11:05 naproxen Allergy See Comment Verified 06/12/18 11:05 Home Medications: Home Medications Acetaminophen [Acetaminophen Extra Strength] 500 mg PO BID 06/12/18 [History Confirmed 06/12/18] Famotidine TAB* [Pepcid 20 MG TAB*] 20 mg PO DAILY 06/12/18 [History Confirmed 06/12/18] PMH/Surg Hx/FS Hx/Imm Hx Cardiovascular History: Cardiac Disease, Hypertension, Atrial Fibrillation Respiratory History: Asthma GI/ History: Gastroesophageal Reflux - Surgical History Surgical History: Yes Surgery Procedure, Year, and Place: Hysterectomy, oopherectomy, appy, tonsils - Family History Known Family History: Positive: Hypertension, Other - son has hx of neuralgia - Social History Occupation: Retired Lives: With Family Alcohol Use: None Substance Use Type: None Smoking Status (MU): Former Smoker Have You Smoked in the Last Year: No When Did the Patient Quit Smoking/Using Tobacco: 2010 Review of Systems All Other Systems Reviewed And Are Negative: Yes Constitutional: Positive: Negative Skin: Positive: Negative Eyes: Positive: Negative ENT: Positive: Other - Bloody nose Respiratory: Positive: Negative Cardiovascular: Positive: Negative Neurological: Positive: Negative Psychological: Positive: Negative Physical Exam - Summary Physical Exam Summary: GENERAL: NAD. WDWN. No pain distress. SKIN: No rashes, sores, lesions, or open wounds. HEENT: Head: AT/NC Eyes: EOM intact. Conjunctiva clear without inflammation or discharge. Ears: Hearing grossly normal. TMs intact, no bulging, erythema, or edema. Nose: LEFT Nasal mucosa moderately swollen and erythematous with dried blood. NTTP maxillary and frontal sinus. NECK: Supple. Nontender. No lymphadenopathy. CHEST: No accessory muscle use. Breathing comfortably and in no distress. CV: Pulses intact. NEURO: Alert. PSYCH: Age appropriate behavior. Triage Information Reviewed: Yes Vital Signs: Initial Vital Signs Temp 97.6 F 06/12/18 11:09 Pulse 83 06/12/18 11:09 Resp 18 06/12/18 11:09 BP 121/58 06/12/18 11:09 Pulse Ox 100 06/12/18 11:09 Vital Signs Reviewed: Yes Epistaxis Nasal Course/Dx - Course Course Of Treatment: Bleeding at time of interview and throughout PE remained resolved. I suspect her epistaxis is due to a dry house environment and worsened by her anticoag status. Bleeding has resolved with direct pressure. Will dc her and advise her to use Afrin for 2 days and f/u with her glue mill operator or PCP if she notices increased bleeding like this happening more often. She also has a humidifier at home, which I have suggested that she use. - Differential Dx/Diagnosis Provider Diagnoses: epistaxis. anticoag use Discharge - Sign-Out/Discharge Documenting (check all that apply): Patient Departure All imaging exams completed and their final reports reviewed: No Studies - Discharge Plan Condition: Stable Disposition: HOME Patient Education Materials: Nosebleed (ED) Referrals: Go Barrios MD [Primary Care Provider] - Additional Instructions: If you develop a fever, shortness of breath, chest pain, new or worsening symptoms - please call your PCP or go to the ED. 1) Buy AFRIN nasal spray [id number] and use two sprays in each nostril twice a day for 2 days - Billing Disposition and Condition Condition: STABLE Disposition: Home - Attestation Statements Provider Attestation: I was available for consult. This patient was seen by the ISAIAH. The patient was not presented to, seen by, or examined by me. -Berta
== END 2018-06-12 11:55 | disposition home or self-care (01) ==
LOC: UCCORT 10:45
DX: R04.0 Epistaxis (principal); J45.909 Unspecified asthma, uncomplicated; K21.9 Gastro-esophageal reflux disease without esophagitis; Z88.8 Allergy status to other drugs, medicaments and biological substances; Z79.01 Long term (current) use of anticoagulants; Z87.891 Personal history of nicotine dependence; Z79.899 Other long term (current) drug therapy
CPT/HCPCS: 99211; G0463